=== PATIENT | male | born 1980 | race Caucasian/White ===

== ENCOUNTER 2023-10-26 18:59 | Emergency (ER) | payer OTHER, SELFPAY ==
[2023-10-26] VITALS (7 sets, daily range): BP systolic 153–180; BP diastolic 84–104; PULSE 80–100; RESP 14–24; TEMP 36.3–36.4; O2SAT 94–98; BMI 29.7; BMI 27.3
--- NOTE | 2023-10-26 19:04 | CT_ITS ---
We are attempting to reach an attending provider to discuss findings. An addendum with communication details will be sent when the communication is complete. STUDY: CTA HEAD AND NECK WITH CONTRAST REASON FOR EXAM: Male, 43 years old. Neuro deficit, acute, stroke suspected RADIATION DOSAGE (If Supplied By Facility): CTDIvol = ( ) mGy, DLP = ( 718.38 ) mGycm TECHNIQUE: CT angiography was performed with a multi-detector CT scanner. Data acquisition was obtained from the skull base through the vertex following intravenous administration of IV 100mL [id number]-370. MIP images were reconstructed from the axial data set. Post-processing of the angiographic images was performed, with multiplanar reformation and 3D reconstruction. Individualized dose optimization techniques were used for this CT. COMPARISON: No relevant priors. FINDINGS: Normal bilateral petrous carotid arteries. Normal right cavernous carotid artery with a normal supraclinoid bifurcation. Normal left cavernous carotid artery with a normal supraclinoid bifurcation. Normal right A1 segments of the anterior cerebral artery. Normal left A1 segments of the anterior cerebral artery. Normal intact anterior communicating artery (ACOM). Normal bilateral A2 segments of the anterior cerebral arteries. Normal right M1 and M2 segments of the middle cerebral arteries, with a normal M1 bifurcation. Normal left M1 and M2 segments of the middle cerebral arteries, with a normal M1 bifurcation. Posterior communicating arteries are not visualized consistent with normal variant Normal bilateral vertebral arteries. Normal basilar artery with a normal basilar bifurcation. The visualized bilateral superior cerebellar (SCA) arteries are normal. Normal bilateral P1, P2 and visualized P3 segments of the posterior cerebral arteries. There is no demonstrated aneurysm of the [place]. There is no demonstrated abnormality of the visualized brain. AORTIC ARCH: Normal visualized aortic arch. Normal origins of the brachiocephalic, left common carotid, and left subclavian arteries. RIGHT CAROTID ARTERIES: Normal right common carotid artery (CCA). Normal right common carotid bulb. Normal origin of the right internal carotid (ICA) artery without a hemodynamically significant stenosis. Normal visualized cervical portion of the right internal carotid artery. Normal origin of the right external carotid artery (ECA). LEFT CAROTID ARTERIES: Normal left common carotid artery (CCA). Normal left common carotid bulb. Normal origin of the left internal carotid (ICA) artery without a hemodynamically significant stenosis. Normal visualized cervical portion of the left internal carotid artery. Normal origin of the left external carotid artery (ECA). VERTEBRAL ARTERIES: Normal bilateral vertebral arteries. CT/STROKE CTA Head AND Neck W/Con IMPRESSION: Normal CTA Head and neck with contrast. Electronically Signed: Mat Ramon MD at 19:36 EST ,
--- NOTE | 2023-10-26 19:04 | EKG12_ITS ---
Test Reason : STROKE Blood Pressure : / mmHG Vent. Rate : 091 BPM Atrial Rate : 091 BPM P-R Int : 156 ms QRS Dur : 072 ms QT Int : 354 ms P-R-T Axes : 034 -19 -15 degrees QTc Int : 435 ms Normal sinus rhythm Nonspecific T wave abnormality Abnormal ECG Confirmed by VIRGINIA CARDENAS, CHRISTINE ([id number]), city editor REBEKA TAYLOR ([id number]) on 11/01/2023 1:40:09 P M Referred By: ROSELYN Confirmed By:JOJO COLEMAN MD
--- NOTE | 2023-10-26 19:04 | CT_ITS ---
INDICATION: Neuro deficit, acute, stroke suspected EXAMINATION: CT BRAIN - CT Head Stroke Protocol W/O Contrast Injection TECHNIQUE: Multiple axial images were obtained of the head without intravenous contrast. A radiation dose optimization technique was used for this scan. IV Contrast dosage and agent: None. RADIATION DOSAGE (If Supplied By Facility): CTDIvol = ( ) mGy, DLP = ( ) mGycm COMPARISON: FINDINGS: BRAIN PARENCHYMA: No intra- or extra-axial hemorrhage. No evidence of acute infarct. No intracranial mass or mass effect. There is preservation of the [place]/white matter interface. Posterior fossa structures are unremarkable. CSF SPACES: Appropriate for age. No hydrocephalus. Basal cisterns are patent. CALVARIUM, SKULL BASE, PARANASAL SINUSES AND MASTOID AIR CELLS: Mucosal thickening of the sphenoid sinuses consistent with sphenoid sinusitis. No discrete lytic or blastic abnormalities. ORBITS: Both globes, extraocular muscles, optic nerves and retrobulbar fat appear unremarkable. ASPECTS Score for Acute Strokes: 10 CT/STROKE Brain/Head without Cont IMPRESSION: Negative Brain CT without contrast. N.B. : The above Results were Read Back by Ronen Owen MD to Fly Carter and understanding confirmed on 10/26/2023 19:17:05 (ET). Electronically Signed: Ronen Owen MD at 19:18 EST ,
--- NOTE | 2023-10-26 19:05 | ED.VIS.STROK ---
HPI History of Present Illness Chief Complaint: Stroke Alert Informant: EMS Narrative Narrative: Patient was initially seen wrapped up with blankets and straps in a EMS cot in the hallway. He evidently has onset of neurologic symptoms in the last 30 minutes to an hour. Weakness on the right side. History of high blood pressure but not on any medicines currently. Patient is not really talking and evidently this has been one of the issues he has had. I am waiting to get more family in to get the history as well as to get a complete evaluation when I can get him unwrapped and in a room. He is breathing well at this time, does not need intubation, and we will initiate workup. We met the patient when he came back from CT. I also talked with his . They were sitting down to have dinner. Everything was normal. The patient evidently has a habit of cracking his neck. He will grab the top of his head with 1 hand in the jaw with the other and crank his neck in a rotational type form. He did this. He stated he just does not feel right. He wanted an Excedrin. But it sounds like he was not having any headache. But he progressed to getting weakness on the right side. The said that his speech was slurred. He was stating the right words and if he worked very hard he could get them out. But they were still slurred. He had dysarthria but not expressive aphasia. [facility] Medical History (Updated 10/26/23 @ 20:[address] Fly Carter MD) Hypertension Allergy/AdvReac Type Severity Reaction Status Date / Time No Known Allergies Allergy Verified 10/26/23 19:31 Social History Smoking Status: Light Smoker (<10/day) ROS ROS ED ROS Narrative Review of systems is severely limited as the patient really is not verbal at this time. He understands instructions quite clearly but cannot speak. EXAM Physical Exam Narrative Exam Narrative: General: Patient is awake. He is alert. He is responsive. He follows simple directions to the best of his ability. HEENT: There is right facial droop. No sign of trauma. Eyes: Pupils are reactive and equal. But he can look midpoint to right he cannot deviate either eye looking to the left. Visual ashley are a little bit difficult to assess even with confrontation. Neck I do not hear a bruit. Lungs are clear bilaterally. Saturations are normal. There is no indication of difficulty breathing. Heart is regular. Does not sound to be atrial fibrillation. I am not hearing a murmur. I do not hear muffled tones. Pulses x 4 are normal. Abdomen is soft and nontender. Extremities show no trauma. Patient has right facial droop, and deviation of eyes central and right, is essentially aphasic at this time. But no receptive aphasia. He has notable weakness right arm and leg. He can lift them off the bed but it is quite difficult and they have a lot of motion. He appears to have some sensory Milka crease on this side also. NIH is 13 but this waxes and wanes and varies considerably. Const Vital Signs: 10/26/23 19:02 10/26/23 19:26 10/26/23 19:30 Temperature 97.4 F L Temperature Source Temporal Pulse Rate 96 96 Respiratory Rate 15 24 H Blood Pressure 159/84 H 156/104 H Blood Pressure Mean 109 121 Blood Pressure Source Blood Pressure Position Blood Pressure Location Pulse Ox 97 94 Oxygen Delivery Method Room Air Room Air Room Air 10/26/23 19:43 10/26/23 19:47 10/26/23 19:50 Temperature 97.6 F L 97.6 F L Temperature Source Temporal Temporal Pulse Rate 100 Respiratory Rate 14 Blood Pressure 153/97 H 153/97 H Blood Pressure Mean 115 Blood Pressure Source Monitor Blood Pressure Position Semi-Fowlers Blood Pressure Location Left Arm Pulse Ox 96 Oxygen Delivery Method Room Air 10/26/23 20:00 10/26/23 20:15 Temperature Temperature Source Pulse Rate 80 85 Respiratory Rate 15 16 Blood Pressure 180/92 H 169/100 H Blood Pressure Mean 121 123 Blood Pressure Source Monitor Monitor Blood Pressure Position Supine Supine Blood Pressure Location Left Arm Left Arm Pulse Ox 94 98 Oxygen Delivery Method Room Air Room Air MDM MDM MDM Narrative Medical decision making narrative: My independent interpretation of his CT showed no sign of bleeding. I did discuss this case directly with the radiologist who also agreed no acute process. I discussed the CT reading angiogram of head and neck and there is no sign of significant process. I also discussed this unique history and there is no indication of dissection. Patient CBC is overall normal including platelets. Patient's electrolytes show mildly low potassium but this is not the cause of his symptoms. Glucose is minimally up. Patient's troponin is negative. Patient's PT and PTT show no marked abnormalities. The stroke neurologist saw this patient by Zoom. When I went in the room they had already hung up. They recommended TNK. But we were not sure if they had gotten a report or seeing the angiogram yet. We then immediately called the neurologist. I talked to the radiologist about the CT angio at 1940. I talked to the neurologist at 194. With that now being known is being a negative CTA, the neurologist had also looked at these images, we have ordered the TNK. I discussed the unique timing of this and reasons for it with the patient and his also. With this patient's young age, waxing and waning symptoms, unique presentation and potential high risk we will fly him down to [facility]. That is their plan to receive the patient down there. Lab Data Attestation: I reviewed the patient's lab results. Labs: Laboratory Results - last 24 hr 10/26/23 19:05 WBC 10.7 RBC 5.14 Hgb 15.5 Hct 45.5 MCV 88.5 MCH 30.2 MCHC 34.1 RDW Std Deviation 38.9 RDW Coeff of Gunjan 12.1 Plt Count 377 MPV 9.5 Immature Gran % (Auto) 0.600 Neut % (Auto) 45.0 L Lymph % (Auto) 45.0 H [place] % (Auto) 7.3 Eos % (Auto) 1.5 Baso % (Auto) 0.6 Absolute Neuts (auto) 4.8 Absolute Lymphs (auto) 4.82 H Nucleated RBC % 0 PT 12.8 INR 1.0 APTT 23.8 L Sodium 141 Potassium 3.1 L Chloride 106 Carbon Dioxide 31.0 Anion Gap 4 L BUN 19 H Creatinine 1.16 Estim Creat Clear Calc 84.78 Est GFR (MDRD) Af Amer 88 Est GFR (MDRD) Non-Af 73 BUN/Creatinine Ratio 16.4 Glucose 118 H Calcium 9.1 Troponin I High Sens 4 Radiography Diagnostic Testing: Clinical Impression(s) from Imaging Studies Brain CT 10/26/23 19:04 IMPRESSION: Negative Brain CT without contrast. N.B. : The above Results were Read Back by Ronen Owen MD to Fly Carter and understanding confirmed on 10/26/2023 19:17:05 (ET). Electronically Signed: Ronen Owen MD at 19:18 EST , ADDENDUM: 10/26/231924 IMPRESSION: Negative Brain CT without contrast. N.B. : The above Results were Read Back by Ronen Owen MD to Fly Carter and understanding confirmed on 10/26/2023 19:17:05 (ET). Electronically Signed: Ronen Owen MD at 19:18 EST , Head/Neck CTA 10/26/23 19:04 IMPRESSION: Normal CTA Head and neck with contrast. Electronically Signed: Mat Ramon MD at 19:36 EST , ADDENDUM: 10/26/231950 IMPRESSION: Normal CTA Head and neck with contrast. N.B. : The above Results were Read Back by Mat Ramon MD to Fly Carter MD, and understanding confirmed on 10/26/2023 19:44:58 (ET). Electronically Signed: Mat Ramon MD at 19:36 EST , EKG Initial EKG: Comments: My independent interpretation of the patient's EKG shows normal sinus rhythm with a rate of 91. No ectopy. Nonspecific change but no sign of acute infarct or ischemia. HI interval, QRS duration and QTc are normal. Critical Care Time Critical Care Time: Yes Critical care time (excluding procedures): 30-74 minutes, Discussing w/Patient &/or Family/[employer], Discussing w/Consultants, Arranging Admission or Transfer, Performing Direct Patient Care at Bedside and - (55 minutes, multiple conversations, multiple rechecks, management.) Discharge Plan Triage Chief Complaint: Stroke Alert ED Provider: Fly Carter Dx/Rx/DC Orders Clinical Impression: Acute CVA (cerebrovascular accident), History of hypertension, Acute hypokalemia Primary Care Provider: Care Physician,No Primary Referrals: NOT,DEFINED [Non-Staff] - Disposition Disposition: Acute Care Hospital Discharge Location: [facility] Discharge Date/Time: 10/26/23 20:28
[2023-10-26 19:11] LABS: Absolute Lymphocyte Count 4.82 X10^3/uL (0.83-4.51); Absolute Neutrophil Count 4.8 X10^3/uL (2.0-7.7); Basophil# 0.06 X10^3/uL; Basophil% 0.6 % (0-1); Eosinophil# 0.16 X10^3/uL; Eosinophils% 1.5 % (0-5); Hematocrit 45.5 % (40-54); Hemoglobin 15.5 g/dL (13.0-16.5); Lymphocyte # 4.82 X10^3/ul (0.83-4.51); Mean Corp Hgb Conc 34.1 g/dL (32-36); Mean Corpuscular Hgb 30.2 pg (27.0-32.0); Mean Corpuscular Volume 88.5 fL (80-94); Mean Platelet Vol. 9.5 fl (6.2-12.0); Monocyte# 0.78 X10^3/uL; Monocyte% 7.3 % (0-10); NRBC Flagged by Analyzer 0 % (0-5); Neutrophil # 4.82 X10^3/uL (2.7-7.7); Platelet Count 377 K/mm3 (150-450); RBC Distribution Width CV 12.1 % (11.6-14.6); RBC Distribution Width SD 38.9 fl (35.1-43.9); Red Blood Count 5.14 M/mm3 (4.6-6.2); White Blood Count 10.7 K/mm3 (4.4-11.0)
[2023-10-26 19:21] LABS: Prothrombin Time (Protime)PT. 12.8 SECONDS (11.7-14.9)
[2023-10-26 19:25] LABS: Partial Thromboplast Time 23.8 Seconds (24.1-36.2)
[2023-10-26 19:30] LABS: Anion Gap 4 (5-15); BUN 19 mg/dL (7-18); BUN/Creat Ratio 16.4 RATIO (10-20); Calcium,Total 9.1 mg/dL (8.5-10.1); Chloride 106 mmol/L (98-107); Creatinine, Serum 1.16 mg/dL (0.70-1.30); EST Glomerular Filtration Rate 73 mL/min (>60); Est Glom Filt Rate - Afr Amer 88 mL/min (>60); Estimated Creatinine Clearance 84.78 ml/min; Glucose 118 mg/dL (74-106); Potassium 3.1 mmol/L (3.5-5.1); Sodium Level 141 mmol/L (136-145); Troponin-I HS 4 pg/mL (3.0-78.0)
[2023-10-26] MEDS: Ondansetron 4 MG/2 ML Vial IV (19:46)
[2023-10-26] MEDS: 0.9% Saline Lock 10 ML Syringe IV ×2 (19:50→19:51)
[2023-10-26] MEDS: 0.9% Normal Saline (1000mL) 1,000 ML 100 ML IV (19:54)
--- NOTE | 2023-10-26 20:03 | ED.RN ---
TNK held until CTA read by [facility] neurology to rule out dissection. Pt continues with symptoms waxing and waning, aware.
--- NOTE | 2023-10-26 20:21 | CM.ED ---
Social Work SW introduced self and role to patient and . Pt is going to [facility] via life flight. SW needs denied at this time. Support provided. 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
== END 2023-10-26 20:28 | disposition short-term general hospital (02) ==
PROVIDERS: Emergency Provider Emergency Medicine; Visit Provider Emergency Medicine
DX: I63.9 Cerebral infarction, unspecified (principal); G81.91 Hemiplegia, unspecified affecting right dominant side; R47.81 Slurred speech; R47.1 Dysarthria and anarthria; R29.810 Facial weakness; R29.713 NIHSS score 13; I10 Essential (primary) hypertension; E87.6 Hypokalemia; F17.200 Nicotine dependence, unspecified, uncomplicated
CPT/HCPCS: 70450; 70496; 70498; 80048; 84484; 85025; 85610; 85730; 93005; 96361; 96374; 96375; 99285; J3101; J7030; Q9967; A4216; J2405

== ENCOUNTER 2023-11-13 14:40 | Inpatient (IN) | payer OTHER, SELFPAY ==
--- OUTSIDE RECORDS SUMMARY | 2023-11-13 14:55 | XMS RPT_ITS | CCD ---
Author Name Unknown Address [address] [place] [address] Organization [facility] Care Team Providers Care Network Project Manager Name Role Phone WES MORLEY Admitting Unavailable CONSULT, SURGERY - NEURO Consulting Unavail able MICHAEL DEMPSEY Referring Unavailable TAMARA EVANS Attending Unavailable Problems Problem Classification Problem Date Documented Da te Episodic/Chronic Acute cerebrovascular disease (6 sources) Cerebral infarction, unspecified; Translations: [Cerebral infarction due to unspecified occlusion or stenosis of left posterior cerebral artery] Onset: 10-26-2023 Chronic Aortic; peripheral; 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; 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-2023 Chronic Disorders of lipid metabolism (2 sources) Hyperlipidemia, unspecified; Translations: [Hyperlipidemia, unspecified] Onset: 10-26-2023 Chronic Malaise and fatigue (2 sources) Weakness; Translations: [Weakness] Onset: 10-26-2023 Episodic Other nervous system disorders (2 sources) Cerebral edema; Translations: [Cerebral edema] Onset: 10-26-2023 Chronic Respiratory failure; insufficiency; arrest (adult) (2 sources) Acute respiratory failure, unspecified whether with hypoxia or hypercapnia; Translations: [Acute respiratory failure, unspecified whether with hypoxia or hypercapnia] Onset: 10-26-2023 Episodic Results Test Name Value Interpretation Reference Range Facil ity Encounters Encounter Date Encounter Type Care Provider Facility Start: 10-26-2023 Evaluation and manag ement of inpatient WES MORLEY Facility:[facility] Procedures Date Procedure Procedure Detail Performing Clinician Start: 10-27-2023 Antibody screen WES RILEY Payers Date Payer Category Payer Unknown [id number] 1980 Unknown [id number] Summary Purpose Family History No Family History Records Found Advance Directives No Advanced Directives Records Found Additional Source Comments (unrecognized sect ion and content) No Status Records Found INFORMATION SOURCE (unrecogn ized section and content) FOR RECORDS PERTAINING TO PATIENTS WHO ARE OR HAVE BEEN ENROLLED IN A CHEMICAL DEPENDENCY/SUBSTANCEABUSE PROGRAM, SOME INFORMATION MAY BE OMITTED. This clinical summary was aggregated from multiple sources. Caution should be exercised in using it in the provision of clinical care. This summary normalizes information from multiple sources, and as a consequence, information in this document may materially change the coding, format and clinical context of patient data. In addition, data may be omitted in some cases. CLINICAL DECISIONS SHOULD BE BASED ON THE PRIMARY CLINICAL RECORDS. [facility]. provides no warranty or guarantee of the accuracy or completeness of information in this document.
[2023-11-13 15:04] VITALS: BP 104/65; PULSE 78; RESP 20; TEMP 36.6; O2SAT 94
[2023-11-13] MEDS: ChlorproMAZINE 25 MG Tablet GT (16:09)
--- NOTE | 2023-11-13 16:12 | HP.PCM_ITS ---
HPI - General General Date of Admission: 11/13/23 Date of Service: 11/13/23 Chief Complaint: Post stroke Debility HPI Narrative CARLEY HENDERSON, is a 43 M with no significant PMH cracked his neck (he has a habit of this) and then started having R side weakness, R facial droop and dysarthria. He went to the ED at [facility] and at his arrival he was basically nonverbal. Stat noncontrast CT brain showed no acute process. CTA of the head and neck with contrast was normal. The ER consulted teleneurology. NIHSS score was 14 at presentation. He also had diplopia. 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 Thrombolytics were recommended and the patient received intravenous TNK. He was then transferred to [facility] for stroke workup. Following TNK the NIHSS score dropped to 3. Upon arrival at [facility] the NIHSS was 2 for right facial droop and dysarthria. Approximately 4 hours after arriving at [facility] the patient lost consciousness after returning from the restroom. He had generalized stiffness/shaking all extremities, was sonorous and responded only to sternal rub. He was given 4 mg of Ativan however continued to have seizure- like activity for 15 minutes is despite medication. A repeat CT head had a lot of artifact and he was intubated to protect the airway and loaded with Keppra and taken back for another CT head which was negative for bleeding. He was started on propofol for sedation. Approximately 2 hours later he had another seizure lasting 5 minutes and was treated with 4 mg of Ativan and an increase in propofol to 20 mcg/kg/min. An EEG was done later in the day on 10/27/2023 and there were no epileptiform discharges but, there was generalized slowing. Neurology felt the movements were not seizures but represented extensor posturing/triple flexing rather than true seizure. He was extubated on 10/29/23. That night he had increased secretions. CXR showed increased atelectasis in the bases and a new infiltrate in the RUL. He was seen by infectious disease and started on vancomycin and Zosyn initially and then transition to ceftriaxone to complete a 5-day course. He had respiratory failure with hypoxemia and was intubated for the second time. He was extubated on 11/06/23. He developed hiccups on 11/07 and was started on Gabapentin and then transitioned to Thorazine and then to Compazine at [facility]. While at [facility] he was seen by PT/OT/ST and acute inpt rehab was recommended at [place]. He was transferred to the acute inpt rehab unit at [facility] on 11/13/23 for 3 hours of therapy daily to restore function/independence at or near his level prior to the stroke. Additional findings while at [facility]: He is non-verbal but, he understands speech and is able to follow commands. He has no numbness and can hear well. He has diplopia. He is moving all his extremities. EOMI. TC 258, LDL 192, HDL 40 and TRIG 93 Hemoglobin A1c was 5.2. Hyperglycemia was due to acute CVA. Transthoracic echocardiogram showed 65 to 70% EF with stage I diastolic dysfunction. There was no evidence of a right to left shunt with a bubble study. He underwent a diagnostic cerebral angiogram on 11/03/2023 and it showed no flow-limiting left vertebral dissection at V3. He had to remain intubated after the DCA due to respiratory failure. PEG tube was inserted on 11/05/2023. MRI showed multiple infarcts throughout the posterior circulation involving the posterior inferior cerebellar artery territory, bilateral AICA/SCA pontine perforators, artery of [place] and bilateral posterior cerebral artery insults. There was localized edema without significant mass effect or fourth ventricular compromise. He had no hemorrhagic transformation. [facility], [facility] Medical History Aspiration pneumonia GERD (gastroesophageal reflux disease) Hypertension Marijuana use Stroke/cerebrovascular accident Home Medications aspirin 81 mg chewable tablet (Aspirin Childrens) 1 tab feeding tube DAILY heart 11/13/23 [History Last Taken Unknown] atorvastatin 80 mg tablet 80 mg feeding tube QHS cholesterol 11/13/23 [History Last Taken Unknown] chlorpromazine 10 mg tablet 5 mg feeding tube Q6H hiccups 11/13/23 [History Last Taken 11/13/23 08:00] Allergy/AdvReac Type Severity Reaction Status Date / Time No Known Allergies Allergy Verified 10/26/23 19:31 Surgical History History of repair of ACL Social History (Updated 11/13/23 @ 17:[address] 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 He is also very drowsy from Thorazine given for singultus and he keeps falling asleep. Review of Systems ROS Unobtainable: due to mental status Vital Signs Vital Signs Vital Signs: 11/13/23 15:04 Temperature 97.9 F Temperature Source Temporal Pulse Rate 78 Respiratory Rate 20 H Blood Pressure 104/65 Blood Pressure Mean 78 Blood Pressure Source Monitor Blood Pressure Position Semi-Fowlers Blood Pressure Location Left Arm Pulse Ox 94 Oxygen Delivery Method Nasal Cannula Oxygen Flow Rate (L/min) 4 Indicators for Scoring Admitted with or Primary Diagnosis of CVA/Stroke: Yes Hx of CVA/Stroke: Yes Modified [place] Score MRS Score at time of Evaluation: 5-Severe disability NIHSS NIHSS 1a. Level of Consciousness: Not alert; (very drowsy and not able to stay awake without stimulation) 1b. LOC Questions: Answers neither question correctly. 1c. LOC Commands: Performs both tasks correctly. 2. Best Gaze: Normal 3. Visual: No visual loss 4. Facial Palsy: Partial paralysis (total or near-total paralysis of lower face) 5a. Left Arm: No drift; arm holds 90 (or 45) degrees for full 10 seconds 5b. Right Arm: No drift; arm holds 90 (or 45) degrees for full 10 seconds 6a. Left Leg: No drift; leg holds 30-degree position for full 5 seconds 6b. Right Leg: No drift; leg holds 30-degree position for full 5 seconds 7. Limb Ataxia: Absent 8. Sensory: Normal; no sensory loss 9. Best Language: Mute, global aphasia; 10. Dysarthria: UN=Intubated or other physical barrier, explain: (severe aphasia - non-verbal at the present time) 11. Extinction and Inattention: No abnormality Total: 8 Stroke Questions Stroke Team Activated: No Physical Exam Const Constitutional Narrative: He is drowsy......likely related to not only the CVA but, he is getting Thorazin e 4 times a day for singultus. His tells me that he has GERD and he takes antacids and PPI's OTC. He is making good eye contact with me. Not able to clear his secretions but, he is able to use the suction catheter by himself. No hiccups at the present time. General Appearance: cooperative and well developed HEENT normocephalic, head/scalp atraumatic and moist oral mucous membranes HEENT Narrative: Thrush is present. Eyes PERRL and EOMs intact bilaterally Neck No nuchal rigidity, supple and No nodes General: trachea midline Resp Resp Narrative: CTA anterior and lateral. Effort and Inspection: Negative for tachypneic, respiratory distress or uses accessory muscles Auscultation: Negative for rales, rhonchi or wheezes Cardio regular rate, regular rhythm, S1 normal heart sound, S2 normal heart sound, no murmurs, no rub and no gallops GI normal to inspection, nondistended, normoactive bowel sounds and soft to palpation GI Narrative: No guarding with palpation. PEG tube is present. there is no erythema around the tube and no purulent DC. He has a condom cath. No lesions or erythema of the glans penis. Inspection: Negative for abdominal distention Extremity Extremity Narrative: no pain with dorsiflexion of the calves or with compression of the gastrocnemius M. General Extremity: Negative for clubbing, cyanosis or edema Skin no rashes or lesions noted, no jaundice, no petechiae and no mottling Neuro Neuro Narrative: Non-verbal, Left facial droop. Tongue protrudes on the midline. Moving all extremities and has no drift. No ataxia. PERRLA. EOMI. No nystagmus. He has intact sensation. Able to follow commands. Generalized weakness of the extremities. Having a hard time staying awake. 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 (3) Posterior circulation stroke: (4) Diplopia: (5) Aphasia complicating stroke: (6) Dysphagia: QUALIFIERS: Dysphagia type: oropharyngeal phase Qualified Code(s): R13.12 - Dysphagia, oropharyngeal phase (7) Presence of externally removable percutaneous endoscopic gastrostomy (PEG) tube: (8) Intractable singultus: (9) Facial droop due to acute stroke: (10) Aspiration pneumonia: QUALIFIERS: Aspiration pneumonia type: due to gastric secretions Laterality: right Lung location: upper lobe of lung Qualified Code(s): J69.0 - Pneumonitis due to inhalation of food and vomit (11) Urinary incontinence as sequela of cerebrovascular accident (CVA): (12) GERD (gastroesophageal reflux disease): QUALIFIERS: Esophagitis presence: esophagitis presence not specified Qualified Code(s): K21.9 - Gastro-esophageal reflux disease without esophagitis (13) Hyperlipidemia: QUALIFIERS: Hyperlipidemia type: pure hypercholesterolemia Qualified Code(s): E78.00 - Pure hypercholesterolemia, unspecified (14) Hypertension: QUALIFIERS: Hypertension type: primary hypertension Qualified Code(s): I10 - Essential (primary) hypertension PLAN: this is new diagnosis. Not on an antihypertensive prior to the stroke. (15) Grade I diastolic dysfunction: (16) Anemia: QUALIFIERS: Anemia type: other cause PLAN: Due to blood loss from lab draws and procedures while at [facility] (17) Thrush, oral: PLAN: Plan PLAN PT for gait stability OT for ADL's ST for evaluation Analgesics as needed Bowel protocol Fall precautions Assess for Anxiety/Depression GI prophylaxis with Pepcid 15 mg per PEG tube twice daily DVT prophylaxis with Lovenox 40 mg subcu daily and TIANA bah Follow up with neurovascular department at [facility], PCP, neurology following DC from [facility] Re[facility] AM lab including CMP, CBC, Mag and Phos ordered Would like to get him off chlorpromazine because I think this is likely contributing to his decreased level of alertness. I suspect some of the decreased level of consciousness is due to the stroke in the posterior circula tion. Will start Reglan 5 mg per G-tube every 8 hours and Prevacid 15 mg twice daily to treat hiccups. Wean the chlorpromazine. Aggressive pulmonary toilet Consult the dietitian to transition to bolus feedings for ease of administration while the patient is receiving therapy. Continue aspirin 81 mg daily. Continue atorvastatin 80 mg per PEG tube nightly........... recheck lipid panel in 4 to 6 weeks. Will also check a liver panel at that time. Start Diflucan 100 mg per G-tube daily for 1 week to treat thrush. Keep the head of the bed at at least 30 degrees at all times to prevent aspiration discussed the plan of treatment with his Beverly. They recently moved to [place] and he has no primary care physician. Will discuss with Carley and his when we get closer to discharge. Charges/Coding Visit Charges Inpatient E&M: 58700 Init Hosp L3
[2023-11-13] MEDS: Vital AF 1.2 Cal Liq 1,500 ML 80 ML GT (16:34)
[2023-11-13 17:42] VITALS: O2SAT 94
--- NOTE | 2023-11-13 19:00 | NURSING ---
here when patient came. Aware of team and rehab routine. Patient is nonverbal but able to follow commands, drowsy in appearance. Call evans in place. Peg tube verified placement via stethoscope, getting continuous tube feed at this time.
[2023-11-13] MEDS: Senna/Docusate Sodium 1 Tablet 2 TABLET GT (22:53)
[2023-11-13] MEDS: Atorvastatin Calcium 80 MG Tablet GT (22:54)
--- NOTE | 2023-11-13 23:00 | NURSING ---
Residual amount 100 ML when checked. Pt was coughing persistently. RN was notified and instructed for this nurse to stop the continuous tube feed.
[2023-11-13] MEDS: Metoclopramide 10 MG/10 ML UDC 5 MG GT (23:01)
[2023-11-13] MEDS: NYSTATIN 500,000 UNIT/5 ML UDC 500000 UNIT PO (23:02)
[2023-11-13] MEDS: Lansoprazole 15 MG Capsule.DR GT (23:02)
[2023-11-13 23:33] LABS: Bacteria 0 SEEN /hpf (None Seen); Mucous, Urine 0 SEEN /hpf (<or=2+)
[2023-11-13 23:37] LABS: Color, Urine Yellow (Yellow); Glucose, Dipstick Normal (Normal); Ketone-Dipstick Negative (Negative); Leukocyte Esterase-Dipstick 25 /ul (Negative); Nitrite-Dipstick Negative (Negative); Occult Blood-Urine 50 /ul (Negative); Protein-Dipstick 15 mg/dl (Negative); Urine Bilirubin Dipstick Negative (Negative); Urine Clarity Clear (Clear); Urine Urobilinogen 4 mg/dl (Normal); Urine pH 6.5 (5.0 - 8.0)
[2023-11-13 23:47] LABS: Red Blood Cells-Urine 5-10 SEEN /hpf (0-5); Squamous Epithelial Cells - UA 0-5 SEEN /hpf (0-5); White Blood Cells 0-5 SEEN /hpf (0-5)
[2023-11-14] MEDS: ChlorproMAZINE 25 MG Tablet GT ×5 (00:54→23:34)
--- NOTE | 2023-11-14 02:51 | NURSING ---
Residual 20 ML. Tube feeding resumed.
[2023-11-14 05:17] LABS: Hematocrit 35.3 % (40-54); Hemoglobin 11.1 g/dL (13.0-16.5); Mean Corp Hgb Conc 31.4 g/dL (32-36); Mean Corpuscular Hgb 29.9 pg (27.0-32.0); Mean Corpuscular Volume 95.1 fL (80-94); Mean Platelet Vol. 9.6 fl (6.2-12.0); Platelet Count 426 K/mm3 (150-450); RBC Distribution Width CV 11.8 % (11.6-14.6); RBC Distribution Width SD 40.7 fl (35.1-43.9); Red Blood Count 3.71 M/mm3 (4.6-6.2); White Blood Count 9.1 K/mm3 (4.4-11.0)
[2023-11-14] MEDS: Metoclopramide 10 MG/10 ML UDC 5 MG GT ×3 (05:19→22:32)
[2023-11-14] MEDS: Enoxaparin 40 MG/0.4 ML Syringe SC (05:20)
[2023-11-14 05:38] LABS: ALB/GLOB Ratio 0.7 RATIO (0.9-2.4); AST(SGOT) 22 U/L (15-37); Alanine Aminotransfer ALT/SGPT 18 U/L (16-61); Albumin, Serum 2.6 g/dL (3.2-5.0); Alkaline Phosphatase 68 U/L (45-117); Anion Gap 4 (5-15); BUN 30 mg/dL (7-18); BUN/Creat Ratio 27.5 RATIO (10-20); Calcium,Total 8.5 mg/dL (8.5-10.1); Chloride 108 mmol/L (98-107); Creatinine, Serum 1.09 mg/dL (0.70-1.30); EST Glomerular Filtration Rate 78 mL/min (>60); Est Glom Filt Rate - Afr Amer 95 mL/min (>60); Globulin 3.9 g/dL (2.2-4.2); Glucose 124 mg/dL (74-106); Potassium 4.1 mmol/L (3.5-5.1); Protein, Total 6.5 g/dL (6.4-8.2); Sodium Level 143 mmol/L (136-145)
[2023-11-14 07:40] VITALS: BP 114/71; PULSE 75; RESP 18; TEMP 37.1; O2SAT 92
[2023-11-14 08:12] VITALS: O2SAT 95
[2023-11-14 09:46] VITALS: BMI 24.0
[2023-11-14] MEDS: Aspirin 81 MG TAB.CHEW GT (09:51)
[2023-11-14] MEDS: Senna/Docusate Sodium 1 Tablet 2 TABLET GT ×2 (09:51→22:32)
[2023-11-14] MEDS: Lansoprazole 15 MG Capsule.DR GT ×2 (09:51→22:32)
[2023-11-14] MEDS: NYSTATIN 500,000 UNIT/5 ML UDC 500000 UNIT PO ×4 (09:51→22:32)
[2023-11-14] MEDS: Influenza Virus Vac Quad 23-24 60 MCG/0.5 ML SYRINGE IM (09:52)
[2023-11-14] MEDS: Jevity 1.5 1,000 ML 65 ML GT (11:29)
[2023-11-14 19:46] VITALS: BP 102/63; PULSE 84; RESP 18; TEMP 37; O2SAT 97
[2023-11-14] MEDS: Atorvastatin Calcium 80 MG Tablet GT (22:32)
[2023-11-15] VITALS (8 sets, daily range): BP systolic 108–125; BP diastolic 64–69; PULSE 79–81; RESP 16; TEMP 36–36.5; O2SAT 90–97
[2023-11-15] MEDS: Jevity 1.5 1,000 ML 65 ML GT (03:23)
[2023-11-15] MEDS: Enoxaparin 40 MG/0.4 ML Syringe SC (05:00)
[2023-11-15] MEDS: Metoclopramide 10 MG/10 ML UDC 5 MG GT ×3 (05:02→20:38)
[2023-11-15] MEDS: ChlorproMAZINE 25 MG Tablet GT (05:04)
--- NOTE | 2023-11-15 07:30 | CPS ---
Found pt on RA, NC became disconnected. Pt sat was 92%. placed pt back on NC at 2L. RN notified.
[2023-11-15] MEDS: Aspirin 81 MG TAB.CHEW GT (08:10)
[2023-11-15] MEDS: NYSTATIN 500,000 UNIT/5 ML UDC 500000 UNIT PO ×4 (08:10→20:38)
[2023-11-15] MEDS: Senna/Docusate Sodium 1 Tablet 2 TABLET GT ×2 (08:10→20:38)
[2023-11-15] MEDS: Lansoprazole 15 MG Capsule.DR GT ×2 (08:10→20:38)
[2023-11-15] MEDS: Acetaminophen 650 MG/20 ML UDC GT ×2 (08:10→15:55)
[2023-11-15] MEDS: Jevity 1.5. 1,000 ML Bottle 310 ML GT ×3 (13:13→20:36)
--- NOTE | 2023-11-15 15:20 | PN_ITS ---
Subjective Subjective Afebrile VSS Maintaining appropriate oxygen saturation on on a 4 to 5 L nasal cannula and we have begun to wean the oxygen supplementation today. Oral intake - NPO due to dysphagia. Discussed with nursing - no problems that need addressed. Nursing reports no hiccups the past 2 days. He is still very drowsy. Reviewed the PT/OT/ST notes Medication list reviewed. Pt is not able to effectively cough on his own. We are using the percussion vest but, the RT suggests assist cough also. Unable to wake up for me to talk with him. He is having long periods of apnea. Could not do a ROS with him due to mental status. He has had no hiccups since arriving at rehab. He was started on Reglan and Prevacid for long history of reflux/heartburn. Objective Data Objective Data Vital Signs: Vital Signs Temp Pulse Resp BP Pulse Ox O2 Del Method O2 Flow Rate 97.7 F L 79 16 108/64 97 Nasal Cannula 2 11/15/23 08:00 11/15/23 08:00 11/15/23 08:00 11/15/23 08:00 11/15/23 08:00 11/15/23 10:00 11/15/23 10:52 Oxygen Flow Rate (L/min) 2 Oxygen Delivery Method Nasal Cannula Weight: 181 lb 2 oz Body Mass Index (BMI) 24.0 Intake & Output: Intake and Output for Last 24 Hours 11/13/23 11/14/23 11/15/23 23:59 23:59 23:59 Intake Total 688 / 738 2781 / 2781 2615.92 / 2615.92 Output Total 675 / 675 400 / 400 Balance 688 / 738 2106 / 2106 2215.92 / 2215.92 Lab / Micro Data 11/14/23 05:05 11/14/23 05:05 Physical Exam Const Constitutional Narrative: Very drowsy. I could not arouse him to talk with him today. Thorazine has been discontinued. Resp Resp Narrative: Scattered rhonchi. No crackles. No wheezes. Not able to have an effective cough. Cardio regular rate, regular rhythm, no murmurs, no rub and no gallops Cardio Narrative: No ectopy GI normal to inspection, nondistended, normoactive bowel sounds and soft to palpation GI Narrative: No guarding with palpation. He is tolerating his tube feeds without significant residual. He was converted to bolus feedings today. The area around the PEG tube is free of erythema. There is no foul-smelling purulent discharge but there is some tube feed that leaks around the opening. 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 (9) Facial droop due to acute stroke: (10) Aspiration pneumonia: QUALIFIERS: Aspiration pneumonia type: due to gastric secretions Laterality: right Lung location: upper lobe of lung Qualified Code(s): J69.0 - Pneumonitis due to inhalation of food and vomit PLAN: Resolved (11) Urinary incontinence as sequela of cerebrovascular accident (CVA): (12) GERD (gastroesophageal reflux disease): QUALIFIERS: Esophagitis presence: esophagitis presence not specified Qualified Code(s): K21.9 - Gastro-esophageal reflux disease without esophagitis (13) Hyperlipidemia: QUALIFIERS: Hyperlipidemia type: pure hypercholesterolemia Qualified Code(s): E78.00 - Pure hypercholesterolemia, unspecified (14) Hypertension: QUALIFIERS: Hypertension type: primary hypertension Qualified Code(s): I10 - Essential (primary) hypertension PLAN: this is new diagnosis. Not on an antihypertensive prior to the stroke. (15) Grade I diastolic dysfunction: (16) Anemia: QUALIFIERS: Anemia type: other cause PLAN: Due to blood loss from lab draws and procedures while at [facility] (17) Thrush, oral: (18) Apnea for greater than 15 seconds: PLAN: Plan 1. Continue therapy 2. Add CoughAssist to respiratory treatments. 3. Continue to wean oxygen as tolerated 4. Discontinue Thorazine but, continue Reglan and PPI. 5. I reviewed the recommendations from the dietitian for bolus feedings and will convert to bolus feedings today. 6. Overnight trending pulse ox. I suspect he may have central apnea due to e xtensive posterior stroke and may need to be on BIPAP with back up rate when sleeping. Pulse ox is good on a 2 LPM NC Charges/Coding Visit Charges Inpatient E&M: 93816 Subs Hosp L2
--- NOTE | 2023-11-15 15:20 | PCM.RU.PYE ---
Admission Information Primary Diagnosis:: Post CVA debility due to posterior circulation ischemic CVA related to dissection of the left vertebral artery Status Changes from Prescreening?: No changes Identified Actual Problem List:: Skin Intergrity, Cognitve Impr/Memory Loss, Alteration in Sleep, Alteration in Nutrition, Mobility Impaired, Self Care Deficit, BP, Hypertension and Alteration/ Air Exchange Potential Problem List:: DVT, Bleeding, Infection, UTI, Aspiration, Falls, Skin Integrity and Depression Risk of Complications DVT: TIANA Hose and - (Enoxaparin) Bleeding: Monitor Lab Values, Nursing to Teach Precautions for anti-coagulation therapy., Wound, if applicable, to be assessed every shift. and Stroke patients assessed for lethargy or change in status. Infection: Clinical Staff to Monitor for S/S of infection: and S/S of infection include fever, redness, warmth, etc. Urinary Tract Infection: Monitor for frequency, burning, discomfort, or incontinence. and Nursing will obtain urine sample for urinalysis and C&S when ordered. Aspiration: Clinical staff will monitor for coughing, drooling, congestion., Speech will evaluate swallowing and dsyphasia. and Nursing will monitor patient swallowing during meals. Falls: Patient will be evaluated for Fall Precautions and Patient will be placed on Fall Precautions as indicated per protocol. Skin Breakdown: Nursing will assess skin daily using assessment tool. and Nursing will place on Skin Breakdown Precautions as indicated. Pain: Clinical staff will assess patient's pain level per protocol., Medications will be given, if needed, and the pain level reassessed. and Other methods: Massage, distraction, decrease stimulus, etc. used PRN. Goals Goals Patient will remain: free from falls Patient will perform eating at: - (He has a PEG tube and currently is n.p.o.) Patient will perform bed mobility at: - (Max assist in order to improve independence with functional mobility) Patient will complete transfers from bed to chair at: - (Complete bedside commode transfer with max assist of 1. He will be able to complete sit to stand transfers with the least restrictive device and max assist in order to improve functional mobility and decrease fall risk.) Patient will ambulate: - (Not a goal at this time.) Patient will complete upper body dressing at: - (He will be able to participate in upper body dressing/bathing tasks with max assist rather than total assist) Patient will complete toilet transfer at: - (Transfer to bedside commode with max assist x 1 person) Patient will complete grooming at: - (Participate in grooming/hygiene tasks seated at the edge of bed with max assist) Patient will achieve: - (Not at goal at this time.) Patient will have pain level of: of 3 or less Patient's skin will: remain intact Patient will receive: adequate nutrition. Discharge Planning Pt Prognosis for Sig. Practical Improv. w/in Reasonable Time: Fair (poor to fair........I suspect he will improve somewhat but skilled nursing prognosis is in question. ) Estimated Length of stay (days): 30 Anticipated D/C Destination: [facility] Facility Was Preadmission Assessment Accurate?: Yes
[2023-11-15] MEDS: Menthol/Lanolin/Calamine/Znox 113 GM Tube 1 APPLIC TOPICAL (20:35)
[2023-11-15] MEDS: Atorvastatin Calcium 80 MG Tablet GT (20:38)
--- NOTE | 2023-11-15 21:54 | CPS ---
Pt O2 found at 82%, 3L O2 added per Dr. Jay
[2023-11-16] MEDS: Acetaminophen 650 MG/20 ML UDC GT ×2 (06:43→15:09)
[2023-11-16] MEDS: Metoclopramide 10 MG/10 ML UDC 5 MG GT ×3 (06:44→22:19)
[2023-11-16] MEDS: Enoxaparin 40 MG/0.4 ML Syringe SC (06:45)
[2023-11-16] MEDS: Menthol/Lanolin/Calamine/Znox 113 GM Tube 1 APPLIC TOPICAL ×2 (06:46→22:20)
[2023-11-16] MEDS: Jevity 1.5. 1,000 ML Bottle 310 ML GT ×5 (06:49→22:20)
[2023-11-16 07:07] VITALS: O2SAT 94
--- NOTE | 2023-11-16 07:43 | NURSING ---
Residual 0ml this am. PEG site cleansed w/ soap and water. Small amount of brown, crusted drainage noted when cleaned. One split 2x2 applied. Did not secure split gauze w/ tape. Insertion sight is pink.
--- NOTE | 2023-11-16 07:47 | NURSING ---
B/L MARICRUZ and MICHAELs applied this am.
[2023-11-16 07:50] VITALS: BP 101/58; PULSE 62; RESP 20; TEMP 37.1; O2SAT 94
[2023-11-16] MEDS: Lansoprazole 15 MG Capsule.DR GT ×2 (10:26→22:20)
[2023-11-16] MEDS: NYSTATIN 500,000 UNIT/5 ML UDC 500000 UNIT PO ×4 (10:27→22:20)
[2023-11-16] MEDS: Aspirin 81 MG TAB.CHEW GT (10:27)
[2023-11-16 12:58] VITALS: O2SAT 93
[2023-11-16 19:12] VITALS: O2SAT 93
[2023-11-16 21:45] VITALS: BP 116/69; PULSE 67; RESP 18; TEMP 36.9; O2SAT 97
--- NOTE | 2023-11-16 22:02 | CPS ---
Unable to lift patient by myself to put vest on. Nursing unavailable at this time to help (giving report). Patient resting comfortably on NC
[2023-11-16] MEDS: Atorvastatin Calcium 80 MG Tablet GT (22:20)
[2023-11-17 03:10] VITALS: BMI 24.0
[2023-11-17] MEDS: Metoclopramide 10 MG/10 ML UDC 5 MG GT ×3 (05:51→22:59)
[2023-11-17] MEDS: Enoxaparin 40 MG/0.4 ML Syringe SC (05:51)
[2023-11-17] MEDS: Menthol/Lanolin/Calamine/Znox 113 GM Tube 1 APPLIC TOPICAL ×2 (05:52→22:56)
[2023-11-17] MEDS: Jevity 1.5. 1,000 ML Bottle 310 ML GT ×5 (05:52→22:57)
[2023-11-17 07:13] VITALS: O2SAT 97
[2023-11-17 07:37] VITALS: BP 113/66; PULSE 65; RESP 18; TEMP 36.9; O2SAT 94
[2023-11-17] MEDS: Aspirin 81 MG TAB.CHEW GT (09:59)
[2023-11-17] MEDS: Lansoprazole 15 MG Capsule.DR GT ×2 (09:59→22:58)
[2023-11-17] MEDS: NYSTATIN 500,000 UNIT/5 ML UDC 500000 UNIT PO ×4 (09:59→22:59)
[2023-11-17 13:28] VITALS: O2SAT 93
--- NOTE | 2023-11-17 14:16 | CASEMGMT ---
Rehab Unit Social Work Sw met with patient and spouse at bedside, introduced self and explained sw role during hospitalization. Sw completed Rehab Social work assessment with patient and spouse. Patient non-verbal at this time as a result of being intubated several times prior to current hospitalization/ transfer from [facility]. Patient able to shake and nod his head. Sw explained advanced directives with patient and spouse, stated there is no pressure to complete documents, and left for their review. 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 Sw utilized active listening, provided support and empathy and offered to assist with advanced directives should they chose to complete them. No additional needs or concerns at this time. Robb Ga, MECHANICAL SYSTEMS DESIGN ENGINEER, TELEPHONIC CASE MANAGER
[2023-11-17 15:12] VITALS: BMI 24.0
--- NOTE | 2023-11-17 15:16 | CHAPLAIN ---
Type of Pastoral Visit _x__ Initial Visit ___ Follow-up Visit ___ On-call Visit ___ General Patient Visit ___ Spiritual Assessment ___ Family Conference ___ Bereavement ___ Rapid Response ___ Code Blue ___ Other (describe below) Pastoral Care Referral From _x__ Patient _x__ Family ___ Nurse ___ Physician ___ Collection Administrator ___ Manager Research Development ___ Other (describe below) Sacrament/Intervention _x__ Active listening ___ Anointing ___ Church ___ Bereavement ___ Communion _x__ Marah exploration ___ _x__ Life review _x__ Prayer ___ Reconciliation ___ Sacrament of Sick _x__ Supportive presence ___ Wedding ___ Other (describe below) Pastoral Comments patient was just finishing up therapy when this maintenance technician 3rd shift came to visit; spouse is with pt at this time and she does all the information sharing and explanation of care thus far; pt is able to follow instructions and comprehend apparently but does not speak; pt nods, makes motions, looks at people and objects purposefully; pt also has a respiratory issue which requires O2 and suction; spouse gives timeline and explains that the family just moved to [place] in August from [place]; this has all been a big adjustment; spouse has family that lives in [facility]; family had a mu-ism connection in [place] of the [employer] but have not been able to establish a new mu-ism membership here yet; pt is tired but both welcome a prayer and future visits; spouse is encouraged to get her rest and have care for self too as this journey may take significant time; spouse denies any further concerns at this time
[2023-11-17 22:30] VITALS: BP 118/70; PULSE 81; RESP 18; TEMP 36.1; O2SAT 95; BMI 24.0
[2023-11-17] MEDS: Atorvastatin Calcium 80 MG Tablet GT (22:59)
[2023-11-18] MEDS: Metoclopramide 10 MG/10 ML UDC 5 MG GT ×3 (05:30→22:11)
[2023-11-18] MEDS: Enoxaparin 40 MG/0.4 ML Syringe SC (05:30)
[2023-11-18] MEDS: Acetaminophen 650 MG/20 ML UDC GT ×2 (05:31→22:10)
[2023-11-18] MEDS: Senna/Docusate Sodium 1 Tablet 2 TABLET GT (05:31)
[2023-11-18] MEDS: Jevity 1.5. 1,000 ML Bottle 310 ML GT ×5 (05:32→22:11)
[2023-11-18] MEDS: Menthol/Lanolin/Calamine/Znox 113 GM Tube 1 APPLIC TOPICAL ×2 (05:32→22:10)
[2023-11-18 07:46] VITALS: BP 117/67; PULSE 68; RESP 12; TEMP 37; O2SAT 92
[2023-11-18] MEDS: Lansoprazole 15 MG Capsule.DR GT ×2 (08:46→22:10)
[2023-11-18] MEDS: NYSTATIN 500,000 UNIT/5 ML UDC 500000 UNIT PO ×4 (08:46→22:10)
[2023-11-18] MEDS: Aspirin 81 MG TAB.CHEW GT (08:46)
--- NOTE | 2023-11-18 13:16 | CASEMGMT ---
Social Work IDT met with patient and for Team meeting. Discussed patient's progress in PT/OT/ST/SN. Educated to MMO CM insurance with [employer] 11/24 and continued stay is not guaranteed with each review. 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 was working and caring for 3 children as well. Pt and 's goal is to return home with , however, unsure of pt's progress and ability to return home at this time. Pt has new peg, new espinosa, and new O2. SW briefly discussed skilled and nonskilled HHC services, SNF care and financial liability. Will ReTeam weekly. SW will continue to follow for DC planning. DANIEL MckeonW
[2023-11-18 15:37] VITALS: BMI 24.0
--- NOTE | 2023-11-18 16:21 | PN_ITS ---
Subjective Subjective Casey was seen on team rounds today. His Beverly was present in the room. Afebrile VSS Maintaining appropriate oxygen saturation on RA Remains NPO with TF via PEG. He is tolerating the TF without residuals Denies heartburn. Discussed with nursing - no problems that need addressed Reviewed the PT/OT/ST notes He is making progress with all three modalities. Still drowsy, brett in the AM but, much more alert than he was prior to discontinuing Thorazine. Medication list reviewed. Still non-verbal. Beverly tells me that he was able to verbalize after the first intubation but not after the second time he was intubated for aspiration pneumonia. He is swallowing a little......very weak but, he is doing some swallowing. He understands what we are saying to him and is able to follow commands although sometimes his responses are slow. He is able to write and he is able to read. He knows what he wants to say but just is not able to verbalize yet due to weakness from 2 intubations recently. He is able to stand and ambulate with physical therapy now. He is making good eye contact with me. Always willing to participate in therapy. He has had no hiccups since Thorazine was discontinued. EKG shows normal sinus rhythm with no QT prolongation. It was interpreted as inferior infarct age undetermined but there is a small R wave in lead II and lead AVF and no Q waves in leads II. [place] is normal. Beverly was able to tell us that he snores loudly, stops breathing at times when sleeping, has RLS, is chronically fatigued......needs a whole pot of coffee to get him going in the AM. He had no apneic episodes while I was observing him during TEAM rounds. He was awake and interacting on rounds. I observed him later after therapy when he was fatigued and falling asleep and he was having Mehran solorzano respirations with apenic episodes last 10-15 sec. ' He is able to answer my yes and no questions when I able able to keep him awake. Responses are delayed. He denies CP, Calf Pain, abd pain heartburn and nausea.. Objective Data Objective Data Vital Signs: Vital Signs Temp Pulse Resp BP Pulse Ox O2 Del Method O2 Flow Rate 98.6 F 68 12 117/67 92 Room Air 3 11/18/23 07:46 11/18/23 07:46 11/18/23 07:46 11/18/23 07:46 11/18/23 07:46 11/18/23 10:00 11/18/23 14:54 FiO2 2 11/18/23 11:49 Oxygen Flow Rate (L/min) 3 Oxygen Delivery Method Room Air Weight: 181 lb 2 oz Body Mass Index (BMI) 24.0 Intake & Output: Intake and Output for Last 24 Hours 11/16/23 11/17/23 11/18/23 23:59 23:59 23:59 Intake Total 2580 / 2580 1820 / 1820 710 / 710 Output Total 1625 / 1625 1175 / 1175 750 / 750 Balance 955 / 955 645 / 645 -40 / -40 Lab / Micro Data 11/14/23 05:05 11/14/23 05:05 Micro: Microbiology 11/15/23 18:10 Stool Stool Occult Blood (JACOBO) - Final Occult Blood Positive Physical Exam Const Constitutional Narrative: fatigues easily. He is more alert in the afternoons with therapy but is fatigued and drowsy afterward. He makes good eye contact with me when he is alert. He is able to cough up secretions and he does suction himself a lot of the time. He is very motivated to get better and never refused his therapy. HEENT normocephalic and head/scalp atraumatic Neck No nuchal rigidity, supple, no JVD and no carotid bruits Resp Resp Narrative: Having Mehran-Solorzano respirations. I replaced his oxygen that he had placed on top of his head. Also having apneic periods of 10 to 15 seconds. Cough is productive but secretions are clear when they are suctioned. Following suctioning the lungs are clear to auscultation anterior and lateral. Effort and Inspection: Negative for respiratory distress, labored or uses accessory muscles Cardio regular rate, regular rhythm, no murmurs, no rub and no gallops Cardio Narrative: No ectopy GI normal to inspection, nondistended, normoactive bowel sounds, soft to palpation and non-tender GI Narrative: No guarding with palpation of the abdomen. The PEG site is free of erythema, purulent discharge. Extremity no calf tenderness General Extremity: Negative for cyanosis or edema Skin General Skin Exam: no breakdown Rashes: no rashes Psych cooperative Psych Narrative: He is motivated and cooperative and wants to get better. Hard to assess for depression in this patient because he is nonverbal at the present time. He has not had crying episodes and he wants to eat. Speech therapy explains to him that until his swallowing muscles are stronger he will need to remain just on tube feed. He seems to understand but then forgets. 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: (4) Diplopia: (5) Aphasia complicating stroke: (6) Dysphagia: QUALIFIERS: Dysphagia type: oropharyngeal phase Qualified Cod e(s): R13.12 - Dysphagia, oropharyngeal phase (7) Presence of externally removable percutaneous endoscopic gastrostomy (PEG) tube: (8) Intractable singultus: (9) Facial droop due to acute stroke: (10) Aspiration pneumonia: QUALIFIERS: Aspiration pneumonia type: due to gastric secretions Laterality: right Lung location: upper lobe of lung Qualified Code(s): J69.0 - Pneumonitis due to inhalation of food and vomit (11) Urinary incontinence as sequela of cerebrovascular accident (CVA): (12) GERD (gastroesophageal reflux disease): QUALIFIERS: Esophagitis presence: esophagitis presence not specified Qualified Code(s): K21.9 - Gastro-esophageal reflux disease without esophagitis (13) Hyperlipidemia: QUALIFIERS: Hyperlipidemia type: pure hypercholesterolemia Qualified Code(s): E78.00 - Pure hypercholesterolemia, unspecified (14) Hypertension: QUALIFIERS: Hypertension type: primary hypertension Qualified Code(s): I10 - Essential (primary) hypertension (15) Grade I diastolic dysfunction: (16) Anemia: QUALIFIERS: Anemia type: other cause PLAN: Due to blood loss from lab draws and procedures while at [facility] (17) Thrush, oral: (18) Apnea for greater than 15 seconds: (19) Mehran-Solorzano respiration: (20) RANDELL (obstructive sleep apnea): PLAN: Plan 1. Continue aggressive therapy. 2. Decrease Reglan to twice daily, 30 minutes prior to the first feeding of the day and 30 minutes prior to the last feeding of the day. Continue to monitor f or residuals. 3. Recheck a BMP and CBC on Wednesday. 4. I suspect that he has obstructive sleep apnea because he has a STOP-BANG score of 5 and has loud snoring, apneic episodes while sleeping observed by his , restless leg syndrome, chronic fatigue and high blood pressure. The neck circumference is not greater than 40 and his BMI is 23.9. Information was obtained from his . He may also have coexisting central sleep apnea because the apneic periords are sometimes last >15 sec. Will continue supplemental oxygen with exercise and anytime he is sleeping. I discussed this with the sleep lab and they spoke to the sleep specialist who recommends keeping him on oxygen. Will try CPAP tonight to see if he is more alert after a night or 2 on CPAP. Because his BMI is low and his neck circumference is not greater than 35 even will start with a pressure of 5....... sleep lab plugged his information into a formula that calculates the pressure needed to be 5. Will need a formal sleep study when he is discharged from the hospital. will also need follow up with pulmonology and possibly a sleep specialist. Casey is non-verbal at the present time and I am unable to get any info from him about falling asleep at work, when reading a book, when riding in the car for more than 30 minutes, while talking with someone. Charges/Coding Visit Charges Inpatient E&M: 12654 Subs Hosp L2
[2023-11-18 18:07] VITALS: BP 117/69; PULSE 69; RESP 17; TEMP 37; O2SAT 97
[2023-11-18 21:45] VITALS: PULSE 69; RESP 17; BMI 24.0
[2023-11-18] MEDS: Atorvastatin Calcium 80 MG Tablet GT (22:10)
[2023-11-18 23:10] VITALS: PULSE 77; RESP 20; O2SAT 92
[2023-11-19 04:30] VITALS: PULSE 60; RESP 16; O2SAT 93
[2023-11-19 06:00] VITALS: BMI 24.2
[2023-11-19] MEDS: Enoxaparin 40 MG/0.4 ML Syringe SC (06:13)
[2023-11-19] MEDS: Jevity 1.5. 1,000 ML Bottle 310 ML GT ×5 (06:13→23:00)
[2023-11-19] MEDS: Metoclopramide 10 MG/10 ML UDC 5 MG GT ×2 (06:14→22:41)
[2023-11-19] MEDS: Menthol/Lanolin/Calamine/Znox 113 GM Tube 1 APPLIC TOPICAL ×2 (06:14→23:00)
[2023-11-19] MEDS: Magnesium Hydroxide 30 ML UDC GT (06:14)
[2023-11-19 06:57] VITALS: O2SAT 97
[2023-11-19 08:43] VITALS: BP 111/71; PULSE 68; RESP 20; TEMP 36.7; O2SAT 90
[2023-11-19] MEDS: Lansoprazole 15 MG Capsule.DR GT ×2 (09:14→22:39)
[2023-11-19] MEDS: NYSTATIN 500,000 UNIT/5 ML UDC 500000 UNIT PO ×4 (09:14→22:42)
[2023-11-19] MEDS: Aspirin 81 MG TAB.CHEW GT (09:14)
[2023-11-19 10:17] VITALS: BMI 24.2
--- NOTE | 2023-11-19 14:34 | NURSING ---
educated and assisted with peg tube feeding this shift.
--- NOTE | 2023-11-19 18:53 | PN_ITS ---
Subjective Subjective Afebrile VSS Maintaining appropriate oxygen saturation on RA Remains n.p.o. tolerating tube feed with no residuals. Denies heartburn. No diarrhea. Discussed with nursing - no problems that need addressed Reviewed the PT/OT/ST notes Medication list reviewed. Tolerated CPAP for almost 1-1/2 hours last night before he removed it. He is more alert today was able to play Yonatan with his and the occupational therapist. Continues to make progress in therapy. Casey denies cephalgia, lightheadedness, vertigo, shortness of breath, palpitations, chest pain, nausea, abdominal pain, pelvic pain/suprapubic pain and calf pain. Still basically nonverbal but, with head nods, thumbs up and down, facial expressions and pantomiming he is able to make us understand him. Objective Data Objective Data Vital Signs: Vital Signs Temp Pulse Resp BP Pulse Ox O2 Del Method O2 Flow Rate 98.1 F 68 20 H 111/71 90 Nasal Cannula 2 11/19/23 08:43 11/19/23 08:43 11/19/23 08:43 11/19/23 08:43 11/19/23 08:43 11/19/23 10:00 11/19/23 11:23 FiO2 97 11/18/23 21:45 Oxygen Flow Rate (L/min) 2 Oxygen Delivery Method Nasal Cannula Weight: 182 lb 8.684 oz Body Mass Index (BMI) 24.2 Intake & Output: Intake and Output for Last 24 Hours 11/17/23 11/18/23 11/19/23 23:59 23:59 23:59 Intake Total 1820 / 1820 1420 / 1420 960 / 960 Output Total 1175 / 1175 1150 / 1150 1000 / 1000 Balance 645 / 645 270 / 270 -40 / -40 Lab / Micro Data 11/25/23 05:35 11/25/23 05:35 Micro: Microbiology 11/15/23 18:10 Stool Stool Occult Blood (JACOBO) - Final Occult Blood Positive Physical Exam Const alert Constitutional Narrative: LOC is much better than at admission. Stays awake easily now for therapy s essions. General Appearance: cooperative HEENT HEENT Narrative: clear oral secretions. Neck No nuchal rigidity Resp clear to auscultation bilaterally Resp Narrative: CTA after deep cough and suctioning. He has a good cough now and we no longer need to assist the cough. No needing the percussion vest much now. Effort and Inspection: Negative for tachypneic Cardio regular rate, regular rhythm and no gallops GI normal to inspection, nondistended, normoactive bowel sounds, soft to palpation and non-tender GI Narrative: no guarding with palpation. The PEG site has no DC and no erythema or swelling. It is non-tender to palpation around the PEG site. 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 (5) Aphasia complicating stroke: (6) Dysphagia: QUALIFIERS: Dysphagia type: oropharyngeal phase Qualified Code(s): R13.12 - Dysphagia, oropharyngeal phase (7) Presence of externally removable percutaneous endoscopic gastrostomy (PEG) tube: (8) Intractable singultus: (9) Facial droop due to acute stroke: (10) Aspiration pneumonia: QUALIFIERS: Aspiration pneumonia type: due to gastric secretions Laterality: right Lung location: upper lobe of lung Qualified Code(s): J69.0 - Pneumonitis due to inhalation of food and vomit (11) Urinary incontinence as sequela of cerebrovascular accident (CVA): (12) GERD (gastroesophageal reflux disease): QUALIFIERS: Esophagitis presence: esophagitis presence not specified Qualified Code(s): K21.9 - Gastro-esophageal reflux disease without esophagitis (13) Hyperlipidemia: QUALIFIERS: Hyperlipidemia type: pure hypercholesterolemia Qualified Code(s): E78.00 - Pure hypercholesterolemia, unspecified (14) Hypertension: QUALIFIERS: Hypertension type: primary hypertension Qualified Code(s): I10 - Essential (primary) hypertension (15) Grade I diastolic dysfunction: (16) Anemia: QUALIFIERS: Anemia type: other cause Other causes of anemia: other cause, not classified Qualified Code(s): D64.89 - Other specified anemias (17) Thrush, oral: (18) Apnea for greater than 15 seconds: (19) Mehran-Solorzano respiration: (20) RANDELL (obstructive sleep apnea): (21) Beckham catheter present: (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 Continue therapy 2. Continue CPAP as tolerated and work up to 6 to 7 hours at night. 3. We discussed with Casey and Beverly starting a medication at at bedtime to help him relax. I reinforced that I do not like antihistamines to help with sleep and I do not believe melatonin is very effective. I would like to avoid medications that can increase brain dysfunction. He has used Marijuana in the past and in fact it was present in the drug screen at the other hospital at the time of admission for stroke. Beverly is worried about possible drug screen at [facility] but I explained that this is a temporary thing until he develops a tolerance for the CPAP and is able to wear it through the night. May need to try different types of masks. We discussed Marinol. Casey gave me a thumbs up and we will try this tonight. Start Remeron at 15 mg Q HS........this will also help with sleep. After the Remeron becomes therapeutic will attempt to DC Marinol Charges/Coding Visit Charges Inpatient E&M: 95498 Subs Hosp L2
[2023-11-19 22:00] VITALS: BP 113/64; PULSE 75; RESP 16; TEMP 36.9; O2SAT 92; O2SAT 95
[2023-11-19] MEDS: Atorvastatin Calcium 80 MG Tablet GT (22:40)
[2023-11-19] MEDS: Mirtazapine 15 MG Tablet GT (23:00)
[2023-11-20 00:10] VITALS: PULSE 75; O2SAT 92
[2023-11-20] MEDS: Metoclopramide 10 MG/10 ML UDC 5 MG GT ×2 (06:10→21:41)
[2023-11-20] MEDS: Enoxaparin 40 MG/0.4 ML Syringe SC (06:10)
[2023-11-20] MEDS: Menthol/Lanolin/Calamine/Znox 113 GM Tube 1 APPLIC TOPICAL ×2 (06:12→21:47)
[2023-11-20] MEDS: Jevity 1.5. 1,000 ML Bottle 310 ML GT ×5 (06:12→21:46)
--- NOTE | 2023-11-20 06:31 | NURSING ---
Residual 0ml this am.
[2023-11-20 08:00] VITALS: BP 100/65; PULSE 59; RESP 16; TEMP 36.4; O2SAT 92
[2023-11-20] MEDS: NYSTATIN 500,000 UNIT/5 ML UDC 500000 UNIT PO ×4 (08:55→21:42)
[2023-11-20] MEDS: Lansoprazole 15 MG Capsule.DR GT ×2 (08:55→21:41)
[2023-11-20] MEDS: Aspirin 81 MG TAB.CHEW GT (08:55)
[2023-11-20 09:31] VITALS: O2SAT 92
[2023-11-20 15:49] VITALS: BMI 24.2
[2023-11-20 19:39] VITALS: BP 111/62; PULSE 72; RESP 18; TEMP 37.4; O2SAT 92
[2023-11-20] MEDS: Atorvastatin Calcium 80 MG Tablet GT (21:41)
[2023-11-20] MEDS: Mirtazapine 15 MG Tablet GT (21:41)
[2023-11-20 22:00] VITALS: O2SAT 95
[2023-11-21 00:19] VITALS: BMI 24.2
--- NOTE | 2023-11-21 03:22 | NURSING ---
Reviewed and agree with Jessy BATISTA, documentation and assessment charting.
[2023-11-21] MEDS: Enoxaparin 40 MG/0.4 ML Syringe SC (05:41)
[2023-11-21] MEDS: Metoclopramide 10 MG/10 ML UDC 5 MG GT ×2 (05:41→20:48)
[2023-11-21] MEDS: Jevity 1.5. 1,000 ML Bottle 310 ML GT ×5 (05:42→21:09)
[2023-11-21] MEDS: Menthol/Lanolin/Calamine/Znox 113 GM Tube 1 APPLIC TOPICAL ×2 (05:42→21:09)
[2023-11-21 07:30] VITALS: O2SAT 94
[2023-11-21 08:30] VITALS: BP 107/68; PULSE 60; RESP 15; TEMP 36.4; O2SAT 98
[2023-11-21] MEDS: Acetaminophen 650 MG/20 ML UDC GT (09:25)
[2023-11-21] MEDS: Lansoprazole 15 MG Capsule.DR GT ×2 (09:25→20:49)
[2023-11-21] MEDS: Aspirin 81 MG TAB.CHEW GT (09:25)
[2023-11-21] MEDS: NYSTATIN 500,000 UNIT/5 ML UDC 500000 UNIT PO ×4 (09:26→20:49)
[2023-11-21 09:43] VITALS: BMI 24.2
[2023-11-21 19:05] VITALS: BP 110/65; PULSE 66; RESP 16; TEMP 36.4; O2SAT 94
[2023-11-21] MEDS: Mirtazapine 15 MG Tablet GT (20:49)
[2023-11-21] MEDS: Atorvastatin Calcium 80 MG Tablet GT (20:49)
[2023-11-21 22:00] VITALS: PULSE 66; RESP 15; O2SAT 94
[2023-11-21 23:28] VITALS: BMI 24.2
[2023-11-22 01:10] VITALS: PULSE 76; O2SAT 92
[2023-11-22] MEDS: Metoclopramide 10 MG/10 ML UDC 5 MG GT ×2 (05:14→20:31)
[2023-11-22] MEDS: Enoxaparin 40 MG/0.4 ML Syringe SC (05:14)
[2023-11-22] MEDS: Acetaminophen 650 MG/20 ML UDC GT ×3 (05:15→20:47)
[2023-11-22] MEDS: Menthol/Lanolin/Calamine/Znox 113 GM Tube 1 APPLIC TOPICAL ×2 (05:17→20:32)
[2023-11-22] MEDS: Jevity 1.5. 1,000 ML Bottle 310 ML GT ×5 (05:17→20:32)
[2023-11-22 06:52] VITALS: O2SAT 96
[2023-11-22 07:26] VITALS: BP 110/70; PULSE 53; RESP 17; TEMP 36.8; O2SAT 99
[2023-11-22] MEDS: Aspirin 81 MG TAB.CHEW GT (10:08)
[2023-11-22] MEDS: Lansoprazole 15 MG Capsule.DR GT ×2 (10:08→20:31)
[2023-11-22] MEDS: NYSTATIN 500,000 UNIT/5 ML UDC 500000 UNIT PO ×4 (10:08→20:32)
--- NOTE | 2023-11-22 12:23 | PN_ITS ---
Subjective Subjective Afebrile VSS Maintaining appropriate oxygen saturation on a 2LPM NC Remains n.p.o. on tube feed. Discussed with nursing -has not been wearing CPAP at night, the nurses place it on and he keeps taking it off. Reviewed the PT/OT/ST notes - He is making progress. Medication list reviewed. He is nonverbal but he is able to appropriately answer yes and no questions with a head nod or a thumbs up with slow response. He denies chest pain, headache, shortness of breath, nausea/heartburn, pain, calf tenderness. does not appear to be in any distress. He was sitting in the therapy room playing ZHANNA with OT and his when I initially saw him. Objective Data Objective Data Vital Signs: Vital Signs Temp Pulse Resp BP Pulse Ox O2 Del Method O2 Flow Rate 98.2 F 53 L 17 110/70 99 Nasal Cannula 2 11/22/23 07:26 11/22/23 07:26 11/22/23 07:26 11/22/23 07:26 11/22/23 07:26 11/22/23 07:26 11/22/23 07:26 FiO2 97 11/18/23 21:45 Oxygen Flow Rate (L/min) 2 Oxygen Delivery Method Nasal Cannula Weight: 182 lb 8.684 oz Body Mass Index (BMI) 24.2 Intake & Output: Intake and Output for Last 24 Hours 11/20/23 11/21/23 11/22/23 23:59 23:59 23:59 Intake Total 2810 / 2810 2150 / 2150 540 / 540 Output Total 1100 / 1100 1450 / 1450 300 / 300 Balance 1710 / 1710 700 / 700 240 / 240 Lab / Micro Data 11/14/23 05:05 11/14/23 05:05 Micro: Microbiology 11/15/23 18:10 Stool Stool Occult Blood (JACOBO) - Final Occult Blood Positive Physical Exam Const Constitutional Narrative: He is impulsive with poor safety awareness. Forgets to cover nursing when he wants to go to the bathroom. Gets up by himself. Resp Resp Narrative: Having Mehran-Solorzano respirations. I replaced his oxygen that he had placed on top of his head. Also having apneic periods of 10 to 15 seconds. Cough is productive but secretions are clear when they are suctioned. Following suctioning the lungs are clear to auscultation anterior and lateral. Effort and Inspection: Negative for respiratory distress, labored or uses accessory muscles Cardio regular rate, regular rhythm, no murmurs, no rub and no gallops Cardio Narrative: No ectopy GI normal to inspection, nondistended, normoactive bowel sounds, soft to palpation and non-tender GI Narrative: No guarding with palpation of the abdomen. The PEG site is free of erythema, purulent discharge. 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: (4) Diplopia: (5) Aphasia complicating stroke: (6) Dysphagia: QUALIFIERS: Dysphagia type: oropharyngeal phase Qualified Code(s): R13.12 - Dysphagia, oropharyngeal phase (7) Presence of externally removable percutaneous endoscopic gastrostomy (PEG) tube: (8) Intractable singultus: (9) Facial droop due to acute stroke: (10) Aspiration pneumonia: QUALIFIERS: Aspiration pneumonia type: due to gastric secretions Laterality: right Lung location: upper lobe of lung Qualified Code(s): J69.0 - Pneumonitis due to inhalation of food and vomit (11) Urinary incontinence as sequela of cerebrovascular accident (CVA): (12) GERD (gastroesophageal reflux disease): QUALIFIERS: Esophagitis presence: esophagitis presence not specified Qualified Code(s): K21.9 - Gastro-esophageal reflux disease without esophagitis (13) Hyperlipidemia: QUALIFIERS: Hyperlipidemia type: pure hypercholesterolemia Qualified Code(s): E78.00 - Pure hypercholesterolemia, unspecified (14) Hypertension: QUALIFIERS: Hypertension type: primary hypertension Qualified Code(s): I10 - Essential (primary) hypertension (15) Grade I diastolic dysfunction: (16) Anemia: QUALIFIERS: Anemia type: other cause (17) Thrush, oral: (18) Apnea for greater than 15 seconds: (19) Mehran-Solorzano respiration: (20) RANDELL (obstructive sleep apnea): PLAN: Plan 1. Continue therapy 2. Continue CPAP as tolerated and work up to 6 to 7 hours at night. 3. We discussed with Casey and Beverly starting a medication at at bedtime to help him relax. I reinforced that I do not like antihistamines to help with sleep and I do not believe melatonin is very effective. I would like to avoid medications that can increase brain dysfunction. He has used Marijuana in the past and in fact it was present in the drug screen at the other hospital at the time of admission for stroke. Beverly is worried about possible drug screen at work but I explained that this is a temporary thing until he develops a tolerance for the CPAP and is able to wear it through the night. May need to try different types of masks. We discussed Marinol. Casey gave me a thumbs up a nd we will try this tonight. Start Remeron at 15 mg Q HS........this will also help with sleep. After the Remeron becomes therapeutic will attempt to DC Marinol Charges/Coding Visit Charges Inpatient E&M: 13813 Subs Hosp L2
[2023-11-22 13:32] VITALS: O2SAT 97
--- NOTE | 2023-11-22 16:03 | CHAPLAIN ---
Type of Pastoral Visit ___ Initial Visit _x__ Follow-up Visit ___ On-call Visit ___ General Patient Visit ___ Spiritual Assessment ___ Family Conference ___ Bereavement ___ Rapid Response ___ Code Blue ___ Other (describe below) Pastoral Care Referral From _x__ Patient ___ Family ___ Nurse ___ Physician ___ Old Testament Professor ___ Senior Accountant Analyst ___ Other (describe below) Sacrament/Intervention ___ Active listening ___ Anointing ___ Jain ___ Bereavement ___ Communion ___ Marah exploration ___ ___ Life review _x__ Prayer ___ Reconciliation ___ Sacrament of Sick _x__ Supportive presence ___ Wedding ___ Other (describe below) Pastoral Comments patient is alone in the room and resting in bed; pt is offered presence, prayer, and any support needed; pt is unable to verbalize but accepts a prayer; affirming words given and offer of future support; pt keeps closing his eyes and so this visit is brief
[2023-11-22 17:00] VITALS: BMI 24.2
--- NOTE | 2023-11-22 17:11 | CPS ---
Used cough assist but only had saliva to suction.
[2023-11-22 19:55] VITALS: BP 115/68; PULSE 66; RESP 15; TEMP 36.2; O2SAT 92; BMI 24.2
[2023-11-22] MEDS: Atorvastatin Calcium 80 MG Tablet GT (20:31)
[2023-11-22] MEDS: Mirtazapine 15 MG Tablet GT (20:31)
[2023-11-22] MEDS: Senna/Docusate Sodium 1 Tablet 2 TABLET GT (20:31)
[2023-11-22 22:36] VITALS: PULSE 68; RESP 16; O2SAT 95
[2023-11-23 04:38] VITALS: PULSE 61; RESP 18; O2SAT 95
[2023-11-23] MEDS: Acetaminophen 650 MG/20 ML UDC GT ×2 (05:26→12:24)
[2023-11-23] MEDS: Enoxaparin 40 MG/0.4 ML Syringe SC (05:27)
[2023-11-23] MEDS: Metoclopramide 10 MG/10 ML UDC 5 MG GT ×2 (05:27→21:26)
[2023-11-23] MEDS: Menthol/Lanolin/Calamine/Znox 113 GM Tube 1 APPLIC TOPICAL ×2 (05:57→21:21)
[2023-11-23] MEDS: Jevity 1.5. 1,000 ML Bottle 310 ML GT ×2 (05:57→10:12)
[2023-11-23 07:30] VITALS: BP 103/71; PULSE 66; RESP 20; TEMP 36.5; O2SAT 96
[2023-11-23 07:36] VITALS: O2SAT 97
--- NOTE | 2023-11-23 07:37 | CPS ---
pt checked on this morning and pt refusing cough assist and vest at this time. Pt will notify nursing when he/if he needs it. suction at bedside.
[2023-11-23] MEDS: NYSTATIN 500,000 UNIT/5 ML UDC 500000 UNIT PO ×4 (10:08→21:19)
[2023-11-23] MEDS: Lansoprazole 15 MG Capsule.DR GT ×2 (10:08→21:19)
[2023-11-23] MEDS: Aspirin 81 MG TAB.CHEW GT (10:08)
[2023-11-23] MEDS: Jevity 1.5. 1,000 ML Bottle 300 ML GT ×4 (12:26→21:20)
[2023-11-23 14:21] VITALS: BMI 24.2
[2023-11-23 21:00] VITALS: BP 126/72; PULSE 61; RESP 18; TEMP 37.1; O2SAT 18; O2SAT 95; BMI 24.2
[2023-11-23] MEDS: Zolpidem Tartrate 5 MG Tablet 10 MG PO (21:18)
[2023-11-23] MEDS: Atorvastatin Calcium 80 MG Tablet GT (21:19)
[2023-11-23] MEDS: Mirtazapine 15 MG Tablet GT (21:19)
[2023-11-23] MEDS: Senna/Docusate Sodium 1 Tablet 2 TABLET GT (21:19)
[2023-11-23] MEDS: Arthritis Pain Compound 60 CLICK TUBE TOPICAL (21:20)
[2023-11-23 22:15] VITALS: PULSE 68; RESP 18; O2SAT 93
[2023-11-24 02:34] VITALS: PULSE 59; RESP 18; O2SAT 94
[2023-11-24] MEDS: Metoclopramide 10 MG/10 ML UDC 5 MG GT ×2 (06:30→20:58)
[2023-11-24] MEDS: Menthol/Lanolin/Calamine/Znox 113 GM Tube 1 APPLIC TOPICAL ×2 (06:31→22:26)
[2023-11-24] MEDS: Jevity 1.5. 1,000 ML Bottle 300 ML GT (06:32)
[2023-11-24] MEDS: Enoxaparin 40 MG/0.4 ML Syringe SC (06:32)
[2023-11-24 08:03] VITALS: O2SAT 95
[2023-11-24 09:24] VITALS: BP 111/70; PULSE 68; RESP 16; TEMP 37.1; O2SAT 95
--- NOTE | 2023-11-24 09:29 | NURSING ---
pt working with speech at this time
--- NOTE | 2023-11-24 09:48 | NURSING ---
speech in with pt
[2023-11-24 10:00] VITALS: PULSE 68; RESP 16
[2023-11-24] MEDS: Jevity 1.5. 1,000 ML Bottle 360 ML GT ×4 (10:00→22:26)
[2023-11-24] MEDS: Arthritis Pain Compound 60 CLICK TUBE TOPICAL ×2 (10:09→20:56)
[2023-11-24] MEDS: Lansoprazole 15 MG Capsule.DR GT ×2 (10:09→20:57)
[2023-11-24] MEDS: Aspirin 81 MG TAB.CHEW GT (10:09)
[2023-11-24] MEDS: NYSTATIN 500,000 UNIT/5 ML UDC 500000 UNIT PO (10:09)
--- NOTE | 2023-11-24 10:47 | PN_ITS ---
Subjective Subjective Afebrile VSS Maintaining appropriate oxygen saturation on RA Still n.p.o. Fluid balance is averaging between 425 and 700 for the past 72 hours Weight is up 1.4 pounds since admission. Discussed with nursing - He was able to wear CPAP last night Ambien was added to the Remeron last night. The TF residuals are good but, nursing feels the cough increases after a TF is given. secretions are clear. Reviewed the PT/OT/ST notes - he reported to the ST today that he is feeling sad. Medication list reviewed. Remeron was started on 11/19/2023. Currently taking 15 mg daily. does not appear to be in any distress. No tachypnea and no labored respirations. Does not appear to be in any pain. Denies cephalgia, CP, SOB, suprapubic pain and calf tenderness. Denies heartburn, abdominal cramping. Urine in the Beckham bag is pale yellow and clear. I discussed trying a voiding trial today and he is giving me a thumbs up. Objective Data Objective Data Vital Signs: Vital Signs Temp Pulse Resp BP Pulse Ox O2 Del Method O2 Flow Rate 98.7 F 68 16 111/70 95 Room Air 2 11/24/23 09:24 11/24/23 09:24 11/24/23 09:24 11/24/23 09:24 11/24/23 09:24 11/24/23 09:24 11/23/23 12:52 FiO2 97 11/18/23 21:45 Oxygen Flow Rate (L/min) 2 Oxygen Delivery Method Room Air Weight: 182 lb 8.684 oz Body Mass Index (BMI) 24.2 Intake & Output: Intake and Output for Last 24 Hours 11/22/23 11/23/23 11/24/23 23:59 23:59 23:59 Intake Total 2360 / 2360 2200 / 2200 200 / 200 Output Total 1800 / 1800 1775 / 1775 575 / 575 Balance 560 / 560 425 / 425 -375 / -375 Lab / Micro Data 11/14/23 05:05 11/14/23 05:05 Micro: Microbiology 11/15/23 18:10 Stool Stool Occult Blood (JACOBO) - Final Occult Blood Positive Physical Exam Narrative He was awake the entire time I was talking with him and examining him. He had no Mehran-Solorzano and no apneic periods. He was able to verbalize 2 words for me today. When I asked about sadness/depression he nodded his head yes. Slept better last night. Still slow to respond to questions but, less so than last week. Const oriented x3 and well nourished General Appearance: cooperative and well hydrated HEENT normocephalic HEENT Narrative: tongue coating is improving. Denies mouth pain Neck No nuchal rigidity Resp Resp Narrative: He continues to be able to suction his mouth. When I initially listened to him he was rhonchorous with sounds transmitted from the upper airway. After a cough and he suctioned himself for some clear sputum his lungs were clear to auscultation anterior and lateral. He is not tachypneic and respiration is not labored. He was awake the entire time I examined him and was not having apnea. Cardio regular rate, regular rhythm, no murmurs and no gallops Cardio Narrative: No ectopy Rate: Negative for bradycardia or tachycardic Peripheral Pulses: pulses 2+ throughout GI normal to inspection, nondistended, normoactive bowel sounds, soft to palpation and non-tender GI Narrative: No maceration around the PEG site and no erythema surrounding the insertion site. No purulent discharge. Extremity no calf tenderness General Extremity: Negative for edema Skin General Skin Exam: no breakdown Rashes: no rashes Neuro Neuro Narrative: More aware of what is going on around him and he is spending more hours a day awake although though process is still slow. He understands what I am asking him and responds with head nods, thumbs up, blinking his eyes. He was able to say two words to me today. 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 (12) GERD (gastroesophageal reflux disease): QUALIFIERS: Esophagitis presence: esophagitis presence not specified Qualified Code(s): K21.9 - Gastro-esophageal reflux disease without esophagitis (13) Hyperlipidemia: QUALIFIERS: Hyperlipidemia type: pure hypercholesterolemia Qualified Code(s): E78.00 - Pure hypercholesterolemia, unspecified (14) Hypertension: QUALIFIERS: Hypertension type: primary hypertension Qualified Code(s): I10 - Essential (primary) hypertension (15) Grade I diastolic dysfunction: (16) Anemia: QUALIFIERS: Anemia type: other cause Other causes of anemia: other cause, not classified Qualified Code(s): D64.89 - Other specified anemias PLAN: due to frequent blood draws while acutely ill with CVA/aspiration PNA. Also had a PEG inserted with mild acute blood loss. 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 Continue therapy 2. Voiding trial today 3. If he continues to tolerate Remeron without any GI side effects will increase the dose to 30 mg daily this weekend. 4. Continue Ambien at at bedtime since he was able to sleep well last night and he was able to keep the CPAP on 5. Continue oxygen therapy anytime he is in his room in bed because he is still having apnea if he falls asleep. Pulse ox with therapy while he is alert is appropriate on room air. 6. Continue the PPI and Reglan for heartburn and hiccups. Charges/Coding Visit Charges Inpatient E&M: 82921 Subs Hosp L2
[2023-11-24 15:47] VITALS: BMI 24.2
--- NOTE | 2023-11-24 15:52 | NURSING ---
pt did not refuse stroke teaching-he was tired w/ eyes closed while I discussed diet and factors w/ his -none of the selections for teaching were appropriate
--- NOTE | 2023-11-24 17:30 | NURSING ---
pt shakes head no when asked if he had the urge to urinate-bladder scanned for 68 ml-will continue to monitor
[2023-11-24 20:47] VITALS: BP 114/66; PULSE 64; RESP 18; TEMP 36.8; O2SAT 98
[2023-11-24] MEDS: Mirtazapine 15 MG Tablet GT (20:57)
[2023-11-24] MEDS: Atorvastatin Calcium 80 MG Tablet GT (20:57)
[2023-11-24] MEDS: Zolpidem Tartrate 5 MG Tablet 10 MG PO (21:02)
[2023-11-24 21:26] VITALS: RESP 18; O2SAT 98
--- NOTE | 2023-11-24 23:26 | NURSING ---
Patient's espinosa catheter recently removed. Bladder scanned at HS with amount noted to be 621cc. Patient straight cath'd at this time with result of 630cc. Clarification needed for when to straight cath patient and when to replace espinosa if needed. Will continue to monitor.
[2023-11-25] VITALS (7 sets, daily range): BP systolic 116–134; BP diastolic 71–76; PULSE 62–77; RESP 16–18; TEMP 36.8–37.1; O2SAT 92–95; BMI 24.2
[2023-11-25] MEDS: Enoxaparin 40 MG/0.4 ML Syringe SC (05:37)
[2023-11-25] MEDS: Menthol/Lanolin/Calamine/Znox 113 GM Tube 1 APPLIC TOPICAL ×2 (05:38→21:40)
[2023-11-25] MEDS: Metoclopramide 10 MG/10 ML UDC 5 MG GT ×2 (05:38→21:39)
[2023-11-25] MEDS: Jevity 1.5. 1,000 ML Bottle 360 ML GT ×5 (05:39→21:40)
[2023-11-25 06:02] LABS: Hemoglobin 10.7 g/dL (13.0-16.5); Mean Corp Hgb Conc 31.5 g/dL (32-36); Mean Corpuscular Hgb 29.5 pg (27.0-32.0); Mean Corpuscular Volume 93.7 fL (80-94); Mean Platelet Vol. 10.3 fl (6.2-12.0); Platelet Count 294 K/mm3 (150-450); RBC Distribution Width CV 12.6 % (11.6-14.6); RBC Distribution Width SD 42.7 fl (35.1-43.9); Red Blood Count 3.63 M/mm3 (4.6-6.2); White Blood Count 7.4 K/mm3 (4.4-11.0)
--- NOTE | 2023-11-25 06:28 | NURSING ---
Pt bladder scanned for 340mL. Str/cathed for 340mL. Slight difficulty passing through prostate.
[2023-11-25 06:36] LABS: ALB/GLOB Ratio 0.8 RATIO (0.9-2.4); AST(SGOT) 44 U/L (15-37); Alanine Aminotransfer ALT/SGPT 42 U/L (16-61); Albumin, Serum 2.8 g/dL (3.2-5.0); Alkaline Phosphatase 69 U/L (45-117); Anion Gap 4 (5-15); BUN 20 mg/dL (7-18); Calcium,Total 8.4 mg/dL (8.5-10.1); Chloride 107 mmol/L (98-107); Creatinine, Serum 0.91 mg/dL (0.70-1.30); EST Glomerular Filtration Rate 97 mL/min (>60); Est Glom Filt Rate - Afr Amer 117 mL/min (>60); Estimated Creatinine Clearance 118.29 ml/min; Globulin 3.4 g/dL (2.2-4.2); Glucose 100 mg/dL (74-106); Magnesium 2.4 mg/dL (1.6-2.6); Phosphorus 4.9 mg/dL (2.5-4.9); Potassium 4.4 mmol/L (3.5-5.1); Protein, Total 6.2 g/dL (6.4-8.2); Sodium Level 141 mmol/L (136-145)
[2023-11-25] MEDS: Lansoprazole 15 MG Capsule.DR GT ×2 (09:56→21:41)
[2023-11-25] MEDS: Arthritis Pain Compound 60 CLICK TUBE TOPICAL ×2 (09:56→21:33)
[2023-11-25] MEDS: Aspirin 81 MG TAB.CHEW GT (09:58)
--- NOTE | 2023-11-25 11:42 | PCM.PROGNOTE ---
Subjective Subjective Afebrile VSS Maintaining appropriate oxygen saturation on RA Remains in Discussed with nursing -the Beckham catheter was discontinued yesterday for voiding trial. He had to be straight cathed and 11 PM for 630 mL and this morning. According. Continue to straight cath 24 hours as needed and if he is still retaining Reviewed the PT/OT/ST notes Medication list reviewed. All lab drawn this AM was personally reviewed. CBC shows a normal white blood cell count and a hemoglobin of 10.7, down from 11.1 on 11/14/2023. Platelet's are within normal limits. BMP shows normal electrolytes and a BUN of 20 (down from 38 on 11/14/2023) and a creatinine of 0.91 which is improving. Calcium corrected for hypoalbuminemia is within normal limits. Mag and Phos are also normal. LFTs are unremarkable. Nursing tells me that today his allowed Casey to get out of bed by himself and ambulate to the BR without assist and the call evans was not rung for assistance. This is not the first time. Need to reinforce with visitors that they are NOT to attempt to help him out of be, help him out of the chair or to assist him to ambulate. They must call staff. This puts him at high risk of falls due to poor safety awareness and impulsivity. He was able to initiate urination today but, due to non-compliance with calling nursing to take him to the toilet and then check a post void residual we did not get a PVR. Casey denies chest pain, shortness of breath, lightheadedness, N/V/heartburn. More alert. Did NOT wear the CPAP at all last night. He can not suction himself with the mask on and he is still having a lot of secretions. His tells me that he was taking Zyrtec at home for rhinitis. Objective Data Objective Data Vital Signs: Vital Signs Temp Pulse Resp BP Pulse Ox O2 Del Method O2 Flow Rate 98.3 F 68 16 116/71 93 Room Air 1 11/25/23 06:55 11/25/23 06:55 11/25/23 06:55 11/25/23 06:55 11/25/23 06:55 11/25/23 06:55 11/24/23 21:26 FiO2 97 11/18/23 21:45 Oxygen Flow Rate (L/min) 1 Oxygen Delivery Method Room Air Weight: 182 lb 8.684 oz Body Mass Index (BMI) 24.2 Intake & Output: Intake and Output for Last 24 Hours 11/23/23 11/24/23 11/25/23 23:59 23:59 23:59 Intake Total 2200 / 2200 2440 / 2440 760 / 760 Output Total 1775 / 1775 1755 / 1755 590 / 590 Balance 425 / 425 685 / 685 170 / 170 Lab / Micro Data 11/25/23 05:35 11/25/23 05:35 Labs: Laboratory Results - last 24 hr 11/25/23 05:35: WBC 7.4, RBC 3.63 L, Hgb 10.7 L, Hct 34.0 L, MCV 93.7, MCH 29.5, MCHC 31.5 L, RDW Std Deviation 42.7, RDW Coeff of Gunjan 12.6, Plt Count 294, MPV 10.3, Sodium 141, Potassium 4.4, Chloride 107, Carbon Dioxide 30.0, Anion Gap 4 L, BUN 20 H, Creatinine 0.91, Estim Creat Clear Calc 118.29, Est GFR (MDRD) Af Amer 117, Est GFR (MDRD) Non-Af 97, BUN/Creatinine Ratio 22.0 H, Glucose 100, Calcium 8.4 L, Phosphorus 4.9, Magnesium 2.4, Total Bilirubin 0.50, AST 44 H, ALT 42, Alkaline Phosphatase 69, Total Protein 6.2 L, Albumin 2.8 L, Globulin 3.4, Albumin/Globulin Ratio 0.8 L Micro: Microbiology 11/15/23 18:10 Stool Stool Occult Blood (JACOBO) - Final Occult Blood Positive Physical Exam HEENT normocephalic HEENT Narrative: tongue coating is improving. Denies mouth pain Resp Resp Narrative: He continues to be able to suction his mouth. When I initially listened to him he was rhonchorous with sounds transmitted from the upper airway. After a cough and he suctioned himself for some clear sputum his lungs were clear to auscultation anterior and lateral. He is not tachypneic and respiration is not labored. He was awake the entire time I examined him and was not having apnea. Cardio regular rate, regular rhythm, no murmurs and no gallops Cardio Narrative: No ectopy GI normal to inspection, nondistended, normoactive bowel sounds, soft to palpation and non-tender GI Narrative: No maceration around the PEG site and no erythema surrounding the insertion site. No purulent discharge. 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 (12) GERD (gastroesophageal reflux disease): QUALIFIERS: Esophagitis presence: esophagitis presence not specified Qualified Code(s): K21.9 - Gastro-esophageal reflux disease without esophagitis (13) Hyperlipidemia: QUALIFIERS: Hyperlipidemia type: pure hypercholesterolemia Qualified Code(s): E78.00 - Pure hypercholesterolemia, unspecified (14) Hypertension: QUALIFIERS: Hypertension type: primary hypertension Qualified Code(s): I10 - Essential (primary) hypertension (15) Grade I diastolic dysfunction: (16) Anemia: QUALIFIERS: Anemia type: other cause Other causes of anemia: other cause, not classified Qualified Code(s): D64.89 - Other specified anemias PLAN: due to frequent blood draws while acutely ill with CVA/aspiration PNA. Also had a PEG inserted with mild acute blood loss. 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 Continue therapy 2. Reinforced with Mrs. Rubin that she must not allow Casey to get out of bed or the recliner without summoning nursing for assistance. He is at HIGH RISK for falls and he is impulsive with poor safety awareness. All visitors MUST adhere to these rules. He was moved from 406 to 408 to be closer to the nurses station since he has getting out of bed without assist to use the BR. 3. Will have RT try different masks with Casey.......if he is able to tolerate the Nasal pillows he could still suction himself when needed. 4. Start Atrovent nasal spray 2 sprays each nostril twice daily to hopefully cut down on postnasal drip/posterior pharyngeal secretions. Charges/Coding Visit Charges Inpatient E&M: 25831 Subs Hosp L2
--- NOTE | 2023-11-25 13:00 | CASEMGMT ---
Addendum entered by Karrie Colin 11/26/23 16:28: Received benefits back from [employer] and left VM with on that information: deductible is met, but OOP has not been met. Once that is met, the pt is responsible for 10%. Addendum entered by Karrie Colin 11/25/23 16:17: [facility] returned call with benefits. SW phoned to update: 90% coverage after deductible is met. Pt deductible has been met for the year. ST is not covered. There is not visit limit. expressed frustration with no ST coverage. SW educated to the policy not providing coverage, not that it is not approved for the pt. Educated to private pay cost with [facility] at approx $259/visit with ST. SW educated to having SN, CANTOR and SW ordered as well, but duration and frequency is still decided by the insurance. Pt is receiving insurance coverage through employer, thus cannot change insurances and does not want to pay increased cost for finding individual insurance. RHODA confirmed [employer] carries all pt's needed supplies. Will await coverage and in-stock information. Awaiting coverage for peg through [facility]. SW will continue to follow. Original Note: Social Work IDT met with patient and for Team meeting. Discussed patient's progress in PT/OT/ST/SN. Educated to MMO CM insurance with [employer] 12/01 and requested DC plans in place. offered to complete P2P appeal, if DC date is issued. appreciative. SW still broached topic of DC plans of home vs SNF. /pt only want home, but requesting continued stay for ongoing nursing home and therapy needs. IDT agreeable. Discussed home needs: FWW, BSC, hospital bed, O2 at night, suction machine, new espinosa and peg supplies. expressed concern about coverage for DME and HHC. SW offered to contact DME and infusion companies and [facility] to inquire about coverage. appreciative. SW sent referrals to [employer], [facility], and [facility]. Will continue to follow. Karrie Colin, JAMMER OPERATOR GLUE JOINTER OPERATOR
[2023-11-25] MEDS: Zolpidem Tartrate 5 MG Tablet 10 MG PO (20:00)
[2023-11-25] MEDS: Ipratropium Bromide 0.06% NASAL SPRAY 2 SPRAY NASAL (21:33)
[2023-11-25] MEDS: Atorvastatin Calcium 80 MG Tablet GT (21:41)
[2023-11-25] MEDS: Mirtazapine 15 MG Tablet GT (21:41)
[2023-11-25] MEDS: Acetaminophen 650 MG/20 ML UDC GT (21:46)
[2023-11-26] MEDS: Metoclopramide 10 MG/10 ML UDC 5 MG GT ×2 (05:34→20:00)
[2023-11-26] MEDS: Menthol/Lanolin/Calamine/Znox 113 GM Tube 1 APPLIC TOPICAL ×2 (05:34→20:07)
[2023-11-26] MEDS: Enoxaparin 40 MG/0.4 ML Syringe SC (05:35)
[2023-11-26] MEDS: Jevity 1.5. 1,000 ML Bottle 360 ML GT ×5 (05:35→20:07)
[2023-11-26 06:00] VITALS: BMI 24.8
[2023-11-26 07:43] VITALS: BP 115/61; PULSE 72; RESP 17; TEMP 36.6; O2SAT 95
[2023-11-26] MEDS: Ipratropium Bromide 0.06% NASAL SPRAY 2 SPRAY NASAL ×2 (09:57→20:00)
[2023-11-26] MEDS: Aspirin 81 MG TAB.CHEW GT (09:57)
[2023-11-26] MEDS: Arthritis Pain Compound 60 CLICK TUBE TOPICAL ×2 (09:57→20:02)
[2023-11-26] MEDS: Lansoprazole 15 MG Capsule.DR GT ×2 (10:00→20:01)
[2023-11-26 12:30] VITALS: O2SAT 95
--- NOTE | 2023-11-26 12:41 | PCM.PN.BLA ---
Progress Note RT changed to a nasal mask last night for CPAP and he was started on Atrovent nasal spray to help cut down on PND and post pharynx secretions.........he was able to wear the CPAP all night and he is more alert today and moving better with therapy. HE had some heartburn today........therapy was started very shortly after the PEG feeding. Nursing asked them to allow at least 30 minutes prior to doing therapy after a PEG feeding.
[2023-11-26 17:00] VITALS: BMI 24.8
[2023-11-26 19:37] VITALS: BP 134/70; PULSE 73; RESP 16; TEMP 36.9; O2SAT 95
[2023-11-26] MEDS: Atorvastatin Calcium 80 MG Tablet GT (20:01)
[2023-11-26] MEDS: Mirtazapine 15 MG Tablet GT (20:02)
[2023-11-26] MEDS: Zolpidem Tartrate 5 MG Tablet 10 MG PO (20:04)
[2023-11-26 20:27] VITALS: PULSE 65; RESP 18; O2SAT 96
--- NOTE | 2023-11-26 21:14 | CPS ---
No Vest/Cough assist done d/t patient sleeping on CPAP at this time
--- NOTE | 2023-11-26 23:21 | CPS ---
No Vest/Cough assist done d/t patient sleeping on CPAP at this time
[2023-11-27 00:08] VITALS: PULSE 68; RESP 18; O2SAT 95
--- NOTE | 2023-11-27 03:27 | NURSING ---
Pt's brief is dry. Bladder scan for 306ml. Pt removes sheet and BLE in bed as if he is attempting to get oob. Drowsy and attempts to speak. Only able to comprehend the word I . Pt writes on white board I can pee . Utilized urinal and pt voided 300 ml clear, straw to brittany-colored urine w/ a slightly strong odor. Shakes head no when asked about any c/o pain or discomfort. Continue voiding trials. Will continue to monitor.
[2023-11-27] MEDS: Enoxaparin 40 MG/0.4 ML Syringe SC (06:42)
[2023-11-27] MEDS: Metoclopramide 10 MG/10 ML UDC 5 MG GT ×2 (06:42→21:32)
[2023-11-27] MEDS: Jevity 1.5. 1,000 ML Bottle 360 ML GT ×5 (06:43→21:35)
[2023-11-27] MEDS: Menthol/Lanolin/Calamine/Znox 113 GM Tube 1 APPLIC TOPICAL ×2 (06:44→20:45)
[2023-11-27 06:52] VITALS: PULSE 64; RESP 16; O2SAT 95
--- NOTE | 2023-11-27 06:53 | CPS ---
pt is on CPAP at this time and does not want to do the vest or cough assist.
--- NOTE | 2023-11-27 07:08 | NURSING ---
Residual 0ml this am prior to 0600 feeding.
[2023-11-27 09:05] VITALS: O2SAT 93
[2023-11-27 09:41] VITALS: BP 118/74; PULSE 63; RESP 17; TEMP 36.7; O2SAT 94
[2023-11-27] MEDS: Lansoprazole 15 MG Capsule.DR GT ×2 (09:41→21:33)
[2023-11-27] MEDS: Aspirin 81 MG TAB.CHEW GT (09:41)
[2023-11-27] MEDS: Arthritis Pain Compound 60 CLICK TUBE TOPICAL ×2 (09:41→21:25)
[2023-11-27] MEDS: Ipratropium Bromide 0.06% NASAL SPRAY 2 SPRAY NASAL ×2 (09:41→21:32)
[2023-11-27 11:01] VITALS: BMI 24.8
[2023-11-27 19:41] VITALS: BP 123/76; PULSE 77; RESP 18; TEMP 37.2; O2SAT 94
[2023-11-27 21:23] VITALS: BMI 24.8
[2023-11-27] MEDS: Zolpidem Tartrate 5 MG Tablet 10 MG PO (21:31)
[2023-11-27] MEDS: Mirtazapine 15 MG Tablet GT (21:33)
[2023-11-27] MEDS: Atorvastatin Calcium 80 MG Tablet GT (21:33)
[2023-11-27] MEDS: Acetaminophen 650 MG/20 ML UDC GT (21:34)
[2023-11-28] MEDS: Enoxaparin 40 MG/0.4 ML Syringe SC (05:24)
[2023-11-28] MEDS: Metoclopramide 10 MG/10 ML UDC 5 MG GT ×2 (05:25→20:42)
[2023-11-28] MEDS: Menthol/Lanolin/Calamine/Znox 113 GM Tube 1 APPLIC TOPICAL ×2 (05:26→21:19)
[2023-11-28] MEDS: Jevity 1.5. 1,000 ML Bottle 360 ML GT ×5 (05:34→21:18)
[2023-11-28 07:08] VITALS: O2SAT 98
[2023-11-28 07:29] VITALS: BP 114/64; PULSE 62; RESP 18; TEMP 36.6; O2SAT 97
[2023-11-28] MEDS: Aspirin 81 MG TAB.CHEW GT (09:35)
[2023-11-28] MEDS: Ipratropium Bromide 0.06% NASAL SPRAY 2 SPRAY NASAL ×2 (09:35→20:42)
[2023-11-28] MEDS: Arthritis Pain Compound 60 CLICK TUBE TOPICAL ×2 (09:36→20:54)
[2023-11-28] MEDS: Lansoprazole 15 MG Capsule.DR GT ×2 (09:36→21:18)
[2023-11-28] MEDS: Acetaminophen 650 MG/20 ML UDC GT ×2 (09:41→18:13)
[2023-11-28 12:47] VITALS: BMI 24.8
[2023-11-28] MEDS: Senna/Docusate Sodium 1 Tablet 2 TABLET GT (14:59)
--- NOTE | 2023-11-28 15:28 | NURSING ---
Spouse completed tube feeding this shift.
[2023-11-28 19:44] VITALS: BP 123/78; PULSE 84; RESP 16; TEMP 37.3; O2SAT 94
[2023-11-28 21:00] VITALS: PULSE 84; RESP 16; O2SAT 94; BMI 24.8
[2023-11-28] MEDS: Mirtazapine 15 MG Tablet GT (21:18)
[2023-11-28] MEDS: Zolpidem Tartrate 5 MG Tablet 10 MG PO (21:18)
[2023-11-28] MEDS: Atorvastatin Calcium 80 MG Tablet GT (21:18)
[2023-11-29] VITALS (8 sets, daily range): BP systolic 123–138; BP diastolic 73–85; PULSE 56–76; RESP 16–18; TEMP 36.8–37.4; O2SAT 92–98; BMI 24.8
[2023-11-29] MEDS: Metoclopramide 10 MG/10 ML UDC 5 MG GT ×2 (05:14→21:47)
[2023-11-29] MEDS: Enoxaparin 40 MG/0.4 ML Syringe SC (05:15)
[2023-11-29] MEDS: Jevity 1.5. 1,000 ML Bottle 360 ML GT ×5 (05:22→21:48)
[2023-11-29] MEDS: Menthol/Lanolin/Calamine/Znox 113 GM Tube 1 APPLIC TOPICAL ×2 (05:22→21:49)
[2023-11-29] MEDS: Arthritis Pain Compound 60 CLICK TUBE TOPICAL ×2 (10:36→21:48)
[2023-11-29] MEDS: Aspirin 81 MG TAB.CHEW GT (10:37)
[2023-11-29] MEDS: Ipratropium Bromide 0.06% NASAL SPRAY 2 SPRAY NASAL ×2 (10:37→21:48)
[2023-11-29] MEDS: Lansoprazole 15 MG Capsule.DR GT ×2 (10:46→21:47)
--- NOTE | 2023-11-29 12:28 | PN_ITS ---
Subjective Subjective Afebrile VSS Maintaining appropriate oxygen saturation on RA Remains n.p.o. for severe dysphagia. Discussed with nursing - no problems that need addressed. He occasionally removes the CPAP at night however nursing puts it back on when he leaves it there. Reviewed the PT/OT/ST notes Medication list reviewed. Denies chest pain, shortness of breath, nausea/vomiting/heartburn/abdominal pain, suprapubic pain, calf pain and cephalgia. He is having some pain in the R neck posteriorly and in the R trapezius muscle. Objective Data Objective Data Vital Signs: Vital Signs Temp Pulse Resp BP Pulse Ox O2 Del Method O2 Flow Rate 98.3 F 74 18 138/85 H 92 Room Air 2 11/29/23 09:48 11/29/23 09:48 11/29/23 09:48 11/29/23 09:48 11/29/23 09:48 11/29/23 09:48 11/29/23 08:08 FiO2 97 11/18/23 21:45 Oxygen Flow Rate (L/min) 2 Oxygen Delivery Method Room Air Weight: 188 lb 4.396 oz Body Mass Index (BMI) 24.8 Intake & Output: Intake and Output for Last 24 Hours 11/27/23 11/28/23 11/29/23 23:59 23:59 23:59 Intake Total 2180 / 2180 2420 / 2420 760 / 760 Output Total 525 / 525 700 / 700 400 / 400 Balance 1655 / 1655 1720 / 1720 360 / 360 Lab / Micro Data 11/25/23 05:35 11/25/23 05:35 Micro: Microbiology 11/15/23 18:10 Stool Stool Occult Blood (JACOBO) - Final Occult Blood Positive Physical Exam Const Constitutional Narrative: More alert than he has been so far. He is able to speak some words now with some dysarthria and I can understand him. Still has slow response to questions. He attempts to write but, for the most part it is unintelligible to me. He is calm when we are talking with no agitation. Never refuses therapy. General Appearance: cooperative Neck Neck Narrative: The neck muscles are weak and he has some difficulty at the end of the day holding his chin up. There is tightness/spasm of the L trapezius and it is tender to deep palpation. No rigidity. General: trachea midline Resp normal respiratory effort Resp Narrative: CTA after suctioning his mouth...... Effort and Inspection: Negative for tachypneic, respiratory distress, labored or uses accessory muscles Cardio regular rate, regular rhythm, no murmurs and no gallops GI normal to inspection, nondistended, normoactive bowel sounds, soft to palpation and non-tender GI Narrative: No redness around the PEG insertion site and no discharge. No guarding with pa lpation in the area immediately surrounding the PEG tube. Extremity no clubbing, cyanosis or edema and no calf tenderness Skin Rashes: no rashes Neuro Neuro Narrative: Left facial droop is improving. Getting stronger. Able to speak words and occasional short phrase. Still with slow thought processing but, doing better with speech. 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 (5) Aphasia complicating stroke: (6) Dysphagia: QUALIFIERS: Dysphagia type: oropharyngeal phase Qualified Code(s): R13.12 - Dysphagia, oropharyngeal phase (7) Presence of externally removable percutaneous endoscopic gastrostomy (PEG) tube: (8) Intractable singultus: (9) Facial droop due to acute stroke: (10) Aspiration pneumonia: QUALIFIERS: Aspiration pneumonia type: due to gastric secretions Laterality: right Lung location: upper lobe of lung Qualified Code(s): J69.0 - Pneumonitis due to inhalation of food and vomit (11) Urinary incontinence as sequela of cerebrovascular accident (CVA): (12) GERD (gastroesophageal reflux disease): QUALIFIERS: Esophagitis presence: esophagitis presence not specified Qualified Code(s): K21.9 - Gastro-esophageal reflux disease without esophagitis (13) Hyperlipidemia: QUALIFIERS: Hyperlipidemia type: pure hypercholesterolemia Qualified Code(s): E78.00 - Pure hypercholesterolemia, unspecified (14) Hypertension: QUALIFIERS: Hypertension type: primary hypertension Qualified Code(s): I10 - Essential (primary) hypertension (15) Grade I diastolic dysfunction: (16) Anemia: QUALIFIERS: Anemia type: other cause Other causes of anemia: other cause, not classified Qualified Code(s): D64.89 - Other specified anemias (17) Thrush, oral: (18) Apnea for greater than 15 seconds: (19) Mehran-Solorzano respiration: (20) RANDELL (obstructive sleep apnea): (21) Beckham catheter present: (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 He has less oral secretions as well. PLAN: Plan 1. Continue therapy 2. No changes to the drug regimen today. 3. ST following DC is not going to be covered by his insurance. Will plan on a peer to peer if insurance cuts him. He is making good progress and he is only 43 with the family to support and needs to be functional and employed going forward. We have to give him every chance that we can 4. Increase the arthritis cream to the posterior neck and bilateral trapezius ridges for muscle spasm and pain. Capacity Legal E Business Project Manager Reflex Medical hold order details:: IF a medical hold is selected below, a suggested order for a MEDICAL HOLD will reflex upon signing the document. Next of kin: [place] law dictates a PRIORITY LIST for identifying legal decision-maker/legal next of kin in the following order (LNOK): 1st: The patient?s legal guardian, if any 2nd: The patient's spouse (if status is questionable, consult Risk Management) 3rd: The patient?s adult child(dot) (majority, if multiple children) 4th: The patient?s parents 5th: The patient?s adult siblings (majority, if multiple children siblings) Charges/Coding Visit Charges Inpatient E&M: 04822 Subs Hosp L2
[2023-11-29] MEDS: Zolpidem Tartrate 5 MG Tablet 10 MG PO (21:47)
[2023-11-29] MEDS: Mirtazapine 15 MG Tablet GT (21:47)
[2023-11-29] MEDS: Atorvastatin Calcium 80 MG Tablet GT (21:47)
[2023-11-29] MEDS: Acetaminophen 650 MG/20 ML UDC GT (22:16)
[2023-11-30 00:09] VITALS: PULSE 59; RESP 18; O2SAT 95
[2023-11-30] MEDS: Metoclopramide 10 MG/10 ML UDC 5 MG GT (04:22)
[2023-11-30] MEDS: Jevity 1.5. 1,000 ML Bottle 360 ML GT ×5 (06:51→21:19)
[2023-11-30 07:15] VITALS: O2SAT 95
[2023-11-30] MEDS: Enoxaparin 40 MG/0.4 ML Syringe SC (07:16)
[2023-11-30 07:41] VITALS: BP 107/70; PULSE 57; RESP 16; TEMP 36.2; O2SAT 95
--- NOTE | 2023-11-30 08:27 | CPS ---
patient refused vest therapy at this time
[2023-11-30] MEDS: Lansoprazole 15 MG Capsule.DR GT ×2 (10:06→21:18)
[2023-11-30] MEDS: Ipratropium Bromide 0.06% NASAL SPRAY 2 SPRAY NASAL ×2 (10:06→21:19)
[2023-11-30] MEDS: Arthritis Pain Compound 60 CLICK TUBE TOPICAL ×2 (10:06→22:56)
[2023-11-30] MEDS: Aspirin 81 MG TAB.CHEW GT (10:06)
[2023-11-30 13:03] VITALS: BMI 24.8
[2023-11-30] MEDS: Haloperidol Lactate 5 MG/ML Vial 2 MG IM (15:27)
--- NOTE | 2023-11-30 16:06 | NURSING ---
pt's had long conversation with Dr Jay in guards to her concerns with the pt's cell phone addiction. the pt's requests that staff limit pt's cell phone use. Dr Jay aggress that the pt should limit cell phone use so that he does not get over stimulated and so that he will get rest in between therapy. Dr Jay instructed the not to get pt is cell phone today because she may have a hard time getting it back from him. When this nurse did her rounds it was noted that the pt's gave him his cell phone. When his attempted to take his phone prior to leaving the pt became agitated. Dr Jay made aware and 2mg Haldol was ordered. Haldol giving and effective.
--- NOTE | 2023-11-30 16:46 | PCM.PROGNOTE ---
Subjective Subjective Afebrile VSS Maintaining appropriate oxygen saturation on RA Oral intake -remains n.p.o. due to severe dysphagia Discussed with nursing - no problems that need addressed. He is being compliant with CPAP now. Reviewed the PT/OT/ST notes Medication list reviewed. Beverly wanted to speak with me today about some changes she has noticed recently with Casey. She tells me that he is seeing people in the corner looking at him and he is getting paranoid........He told his he did not think it was right that the ST was reading Beverly's papers that were in her purse. No one else has noticed this behavior with Casey. She also tells me that he wants his cell phone and that he spends hours a day on his phone at baseline. Will have to do some investigation into this. We discussed not allowing him to have the phone while on rehab because he may get agitated if we try to take it away to do therapy. She then entered his room and gave him his cell phone and when she tried to take it away he would not give it to her. She said he was agitated.......I went into the room and talked with Casey and he was not agitated but, he would not initially relinquish the phone. I went back after Beverly left and he was holding the phone. I explained that I want him to do as good as he can while in rehab so that he has every chance possible to be functional going forward so I need him to focus all his attention on therapy and not on his phone. He said he understood and gave me his phone, no drama and no agitation. I told him nursing would allow him to have the phone for 15 minutes twice a day when he is not doing therapy and he seemed fine with this. Objective Data Objective Data Vital Signs: Vital Signs Temp Pulse Resp BP Pulse Ox O2 Del Method O2 Flow Rate 97.1 F L 57 L 16 107/70 95 Nasal Cannula 3 11/30/23 07:41 11/30/23 07:41 11/30/23 07:41 11/30/23 07:41 11/30/23 07:41 11/30/23 07:41 11/30/23 07:41 FiO2 97 11/18/23 21:45 Oxygen Flow Rate (L/min) 3 Oxygen Delivery Method Nasal Cannula Weight: 188 lb 4.396 oz Body Mass Index (BMI) 24.8 Intake & Output: Intake and Output for Last 24 Hours 11/28/23 11/29/23 11/30/23 23:59 23:59 23:59 Intake Total 2420 / 2420 2120 / 2120 795 / 795 Output Total 700 / 700 900 / 900 600 / 600 Balance 1720 / 1720 1220 / 1220 195 / 195 Lab / Micro Data 12/06/23 05:31 12/06/23 05:31 Micro: Microbiology 11/15/23 18:10 Stool Stool Occult Blood (JACOBO) - Final Occult Blood Positive Physical Exam Const alert and no apparent distress General Appearance: cooperative Resp clear to auscultation bilaterally Cardio regular rate GI normal to inspection, nondistended, normoactive bowel sounds, soft to palpation and non-tender Extremity General Extremity: Negative for cyanosis or edema Skin General Skin Exam: no breakdown Rashes: no rashes Wound Narrative: The PEG site has no erythema or purulent discharge. He has no guarding with palpation in the area immediately around the PEG tube. Psych Attitude: No agitated Assessment & Plan Assessment/Plan (1) Debility: PLAN: DC home with [facility]. PT/OT/ST/RN. 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 (7) Presence of externally removable percutaneous endoscopic gastrostomy (PEG) tube: (8) Intractable singultus: PLAN: Resolved (9) Facial droop due to acute stroke: (10) Aspiration pneumonia: QUALIFIERS: Aspiration pneumonia type: due to gastric secretions Laterality: right Lung location: upper lobe of lung Qualified Code(s): J69.0 - Pneumonitis due to inhalation of food and vomit PLAN: Resolved (11) Urinary incontinence as sequela of cerebrovascular accident (CVA): (12) GERD (gastroesophageal reflux disease): QUALIFIERS: Esophagitis presence: esophagitis presence not specified Qualified Code(s): K21.9 - Gastro-esophageal reflux disease without esophagitis (13) Hyperlipidemia: QUALIFIERS: Hyperlipidemia type: pure hypercholesterolemia Qualified Code(s): E78.00 - Pure hypercholesterolemia, unspecified (14) Hypertension: QUALIFIERS: Hypertension type: primary hypertension Qualified Code(s): I10 - Essential (primary) hypertension (15) Grade I diastolic dysfunction: (16) Anemia: QUALIFIERS: Anemia type: other cause Other causes of anemia: other cause, not classified Qualified Code(s): D64.89 - Other specified anemias (17) Thrush, oral: (18) Apnea for greater than 15 seconds: (19) Mehran-Solorzano respiration: (20) RANDELL (obstructive sleep apnea): (21) Beckham catheter present: PLAN: Removed several days prior to DC. 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 1 dose of IM Haldol was ordered because Beverly said he was agitated and getting aggressive...... He is resting comfortably now and he gave me the phone almost immediately after he had the injection so I do not think it was the Haldol that made him 2. Continue therapy 3. ? the Hallucinations........this has NOT been observed by any of the staff. Capacity Legal Digital Associate Media Director Reflex Medical hold order details:: IF a medical hold is selected below, a suggested order for a MEDICAL HOLD will reflex upon signing the document. Next of kin: [place] law dictates a PRIORITY LIST for identifying legal decision-maker/legal next of kin in the following order (LNOK): 1st: The patient?s legal guardian, if any 2nd: The patient's spouse (if status is questionable, consult Risk Management) 3rd: The patient?s adult child(dot) (majority, if multiple children) 4th: The patient?s parents 5th: The patient?s adult siblings (majority, if multiple children siblings) Charges/Coding Visit Charges Inpatient E&M: 94555 Subs Hosp L2
[2023-11-30 19:28] VITALS: BP 129/71; PULSE 66; RESP 18; TEMP 36.6; O2SAT 96
[2023-11-30] MEDS: Atorvastatin Calcium 80 MG Tablet GT (21:18)
[2023-11-30] MEDS: Zolpidem Tartrate 5 MG Tablet 10 MG PO (21:20)
[2023-11-30] MEDS: Menthol/Lanolin/Calamine/Znox 113 GM Tube 1 APPLIC TOPICAL (21:36)
[2023-11-30 21:49] VITALS: BMI 24.8
[2023-11-30 22:00] VITALS: PULSE 69; RESP 18; O2SAT 96
[2023-12-01] MEDS: Arthritis Pain Compound 60 CLICK TUBE TOPICAL ×3 (05:13→21:16)
[2023-12-01] MEDS: Enoxaparin 40 MG/0.4 ML Syringe SC (05:13)
[2023-12-01] MEDS: Menthol/Lanolin/Calamine/Znox 113 GM Tube 1 APPLIC TOPICAL ×2 (05:14→21:22)
[2023-12-01] MEDS: Jevity 1.5. 1,000 ML Bottle 360 ML GT ×5 (05:15→21:16)
[2023-12-01 07:30] VITALS: BP 102/63; PULSE 61; RESP 16; TEMP 36.6; O2SAT 94
[2023-12-01 09:29] VITALS: O2SAT 97
[2023-12-01] MEDS: Aspirin 81 MG TAB.CHEW GT (10:11)
[2023-12-01] MEDS: Lansoprazole 15 MG Capsule.DR GT ×2 (10:12→21:20)
[2023-12-01] MEDS: Ipratropium Bromide 0.06% NASAL SPRAY 2 SPRAY NASAL ×2 (10:12→21:16)
[2023-12-01 10:36] VITALS: O2SAT 97
--- NOTE | 2023-12-01 12:24 | CASEMGMT ---
Social Work Received update that insurance approved with [employer] 12/06 and continued stay is not guaranteed. SW phoned to update. SW inquired about PCP. stated Dr. Nkechi Jones agreed to follow pt/family. SW also discussed TCU as a transition prior to home, per IDTs recommendations. agreeable if insurance approves, otherwise, pt will DC home. SW referred to TCU and updated [facility] and [employer] on [employer]D. SW will continue to follow for DC planning. DANIEL MckeonW
--- NOTE | 2023-12-01 15:32 | CHAPLAIN ---
Type of Pastoral Visit ___ Initial Visit _x__ Follow-up Visit ___ On-call Visit ___ General Patient Visit ___ Spiritual Assessment ___ Family Conference ___ Bereavement ___ Rapid Response ___ Code Blue ___ Other (describe below) Pastoral Care Referral From ___ Patient _x__ Family ___ Nurse ___ Physician ___ City Attorney ___ Millinery Copyist ___ Other (describe below) Sacrament/Intervention ___ Active listening ___ Anointing ___ Islam ___ Bereavement ___ Communion ___ Marah exploration ___ ___ Life review ___ Prayer ___ Reconciliation ___ Sacrament of Sick _x__ Supportive presence ___ Wedding ___ Other (describe below) Pastoral Comments this assisted living executive director was present in the unit today and saw this patient and his spouse in their room; stopped to say hello and offer presence and support; pt could answer in some garbled words which is an improvement; offered encouraging words and asked for needs or concerns; offered assistance to his spouse; unable to get into a conversation due to limited abilities of patient; however, pt was given hopeful encouragement due to his evident improvements;
[2023-12-01 15:53] VITALS: BMI 24.8
[2023-12-01 19:27] VITALS: BP 120/77; PULSE 85; RESP 16; TEMP 37.2; O2SAT 95
[2023-12-01] MEDS: Zolpidem Tartrate 5 MG Tablet 10 MG PO (21:15)
[2023-12-01] MEDS: Acetaminophen 650 MG/20 ML UDC GT (21:17)
[2023-12-01] MEDS: Atorvastatin Calcium 80 MG Tablet GT (21:20)
[2023-12-01 21:44] VITALS: BMI 24.8
[2023-12-01 22:00] VITALS: PULSE 78; RESP 17; O2SAT 95
[2023-12-02 01:15] VITALS: PULSE 55; RESP 18; O2SAT 96
[2023-12-02] MEDS: Menthol/Lanolin/Calamine/Znox 113 GM Tube 1 APPLIC TOPICAL ×2 (05:06→22:40)
[2023-12-02] MEDS: Arthritis Pain Compound 60 CLICK TUBE TOPICAL ×3 (05:06→22:24)
[2023-12-02] MEDS: Enoxaparin 40 MG/0.4 ML Syringe SC (05:07)
[2023-12-02] MEDS: Jevity 1.5. 1,000 ML Bottle 360 ML GT ×5 (05:07→22:30)
[2023-12-02 07:42] VITALS: O2SAT 93
--- NOTE | 2023-12-02 07:43 | CPS ---
PATIENT ALSO RECIEVED COUGH ASSIST.
[2023-12-02] MEDS: Aspirin 81 MG TAB.CHEW GT (08:55)
[2023-12-02] MEDS: Acetaminophen 650 MG/20 ML UDC GT ×2 (08:55→22:31)
[2023-12-02] MEDS: Lansoprazole 15 MG Capsule.DR GT ×2 (09:27→22:27)
[2023-12-02] MEDS: Ipratropium Bromide 0.06% NASAL SPRAY 2 SPRAY NASAL ×2 (09:27→22:24)
[2023-12-02 10:00] VITALS: BP 124/78; PULSE 78; RESP 15; TEMP 36.8; O2SAT 97
[2023-12-02 11:28] VITALS: BMI 24.8
--- NOTE | 2023-12-02 13:03 | CASEMGMT ---
Social Work IDT met with patient and for Team meeting. Discussed patient's progress in PT/OT/ST/SN. Educated to MMO CM insurance with [employer] 12/06 and continued stay is not guaranteed with each review. Reiterated goal for DC plans. 1 - if LINK KNITTING MACHINE OPERATOR is denied, complete P2P; 2 - if denied, request precert for TCU; 3 - if denied, DC home with DME and HHC. IDT expressed private concerns with ability for to care for pt and Dr requesting APS referral for pt's safety. See Dr notes for further details. SW will continue to follow for DC planning. Karrie Colin, DANIEL WELDING PANTOGRAPH OPERATOR
--- NOTE | 2023-12-02 15:36 | PCM.PROGNOTE ---
Subjective Subjective Casey was seen on team rounds today. His Beverly was present in the room. Afebrile VSS Maintaining appropriate oxygen saturation on RA Remains NPO. No PEG tube residuals following bolus feedings. Discussed with nursing - no problems that need addressed. Has been much more compliant with CPAP and occasionally takes it off at night but when nursing reapplies he leaves it on. Reviewed the PT/OT/ST notes - He is making good progress. He is ambulating with a WW and has picked up his tiago with no loss of balance. He is standby assist. He is able to get more words out now but still only 1 at a time when I am talking with him. Seems to understand much more than he can express. Medication list reviewed. 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 I told her I have no way to predict this. It will depend on how he progresses in ST but, he had a large posterior stroke and speech and swallowing are going to take a long time to improve and he will likely need ST for a long time. I suspect he may never get back to his baseline prior to the stroke. Still with poor safety awareness and poor impulse control. Casey denies cephalgia, lightheadedness, sore throat, chest pain, shortness of breath, nausea/vomiting/abdominal pain, calf tenderness. He is more interactive this week and more alert. Objective Data Objective Data Vital Signs: Vital Signs Temp Pulse Resp BP Pulse Ox O2 Del Method O2 Flow Rate 98.2 F 78 15 124/78 H 97 Room Air 3 12/02/23 10:12/02/23 10:12/02/23 10:12/02/23 10:12/02/23 10:12/02/23 10:12/02/23 08:01 FiO2 97 11/18/23 21:45 Oxygen Flow Rate (L/min) 3 Oxygen Delivery Method Room Air Weight: 188 lb 4.396 oz Body Mass Index (BMI) 24.8 Intake & Output: Intake and Output for Last 24 Hours 11/30/23 12/01/23 12/02/23 23:59 23:59 23:59 Intake Total 2545 / 2545 2150 / 2150 1530 / 1530 Output Total 600 / 600 1050 / 1050 450 / 450 Balance 1945 / 1945 1100 / 1100 1080 / 1080 Lab / Micro Data 12/06/23 05:31 12/06/23 05:31 Micro: Microbiology 11/15/23 18:10 Stool Stool Occult Blood (JACOBO) - Final Occult Blood Positive Physical Exam Const alert and no apparent distress Constitutional Narrative: Better able to hold his head up and look at me when we are speaking. General Appearance: cooperative HEENT Mouth: dry mucous membranes Resp normal respiratory effort and clear to auscultation bilaterally Resp Narrative: continues to suction his mouth as needed. Oral secretions are clear. Lungs are clear after suctioning. stronger cough to bring up secretions. Effort and Inspection: Negative for tachypneic or respiratory distress Cardio regular rate, regular rhythm, no murmurs and no gallops GI normal to inspection, nondistended, normoactive bowel sounds, soft to palpation and non-tender GI Narrative: The PEG site is clean with no erythema around the site and no purulent discharge from the site. Extremity no calf tenderness General Extremity: Negative for edema Skin Rashes: no rashes Wounds: Negative for wounds noted Psych Psych Narrative: He is calm and cooperative. 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 (7) Presence of externally removable percutaneous endoscopic gastrostomy (PEG) tube: (8) Intractable singultus: PLAN: Resolved (9) Facial droop due to acute stroke: (10) Aspiration pneumonia: QUALIFIERS: Aspiration pneumonia type: due to gastric secretions Laterality: right Lung location: upper lobe of lung Qualified Code(s): J69.0 - Pneumonitis due to inhalation of food and vomit PLAN: Resolved (11) Urinary incontinence as sequela of cerebrovascular accident (CVA): (12) GERD (gastroesophageal reflux disease): QUALIFIERS: Esophagitis presence: esophagitis presence not specified Qualified Code(s): K21.9 - Gastro-esophageal reflux disease without esophagitis (13) Hyperlipidemia: QUALIFIERS: Hyperlipidemia type: pure hypercholesterolemia Qualified Code(s): E78.00 - Pure hypercholesterolemia, unspecified (14) Hypertension: QUALIFIERS: Hypertension type: primary hypertension Qualified Code(s): I10 - Essential (primary) hypertension (15) Grade I diastolic dysfunction: (16) Anemia: QUALIFIERS: Anemia type: other cause Other causes of anemia: other cause, not classified Qualified Code(s): D64.89 - Other specified anemias (17) Thrush, oral: (18) Apnea for greater than 15 seconds: (19) Mehran-Solorzano respiration: (20) RANDELL (obstructive sleep apnea): (21) Beckham catheter present: (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 Continue therapy 2. Speech therapy plans a modified barium swallow for later this week 3. His is going to need a lot of assistance from family and friends IF he is to go home following rehab. Capacity Legal Clinical Documentation Manager Reflex Medical hold order details:: IF a medical hold is selected below, a suggested order for a MEDICAL HOLD will reflex upon signing the document. Next of kin: [place] law dictates a PRIORITY LIST for identifying legal decision-maker/legal next of kin in the following order (LNOK): 1st: The patient?s legal guardian, if any 2nd: The patient's spouse (if status is questionable, consult Risk Management) 3rd: The patient?s adult child(dot) (majority, if multiple children) 4th: The patient?s parents 5th: The patient?s adult siblings (majority, if multiple children siblings) Charges/Coding Visit Charges Inpatient E&M: 36762 Subs Hosp L2
[2023-12-02 20:29] VITALS: BP 124/74; PULSE 79; RESP 18; TEMP 37.7; O2SAT 93
[2023-12-02 22:02] VITALS: PULSE 70; RESP 18; O2SAT 96
[2023-12-02] MEDS: Zolpidem Tartrate 5 MG Tablet 10 MG PO (22:24)
[2023-12-02] MEDS: Atorvastatin Calcium 80 MG Tablet GT (22:27)
--- NOTE | 2023-12-02 23:18 | CPS ---
[1900] Pt. didn't want to do the cough assist or chest vest tonight. Pt. breath sounds clear, with upper lobe rhonchi. Pt. not having problems mobilizing secretions at this time. Cough assist taken to [facility], per Dr. Gomez.
[2023-12-03] MEDS: Arthritis Pain Compound 60 CLICK TUBE TOPICAL ×3 (05:16→22:05)
[2023-12-03] MEDS: Menthol/Lanolin/Calamine/Znox 113 GM Tube 1 APPLIC TOPICAL (05:16)
[2023-12-03] MEDS: Jevity 1.5. 1,000 ML Bottle 360 ML GT ×5 (05:17→22:05)
[2023-12-03] MEDS: Enoxaparin 40 MG/0.4 ML Syringe SC (05:34)
[2023-12-03 06:00] VITALS: BMI 24.6
[2023-12-03 06:56] VITALS: O2SAT 96
[2023-12-03 08:03] VITALS: BP 113/60; PULSE 65; RESP 18; TEMP 36.7; O2SAT 93
--- NOTE | 2023-12-03 09:00 | SP.MBSS_ITS ---
Modified Barium Swallow Patient Information Study Date: 12/03/23 Study Time: 09:00 Direct Billable Minutes: 105 Total Minutes procedure & reportin Diagnosis: CVA, oropharyngeal dysphagia Referring Physician: Love Jay Reason for Referral: This patient has participated in +2 weeks of dysphagia intervention on the inpatient rehab unit. Improve saliva management and ability to elicit volitional swallow observed w/ objective assessment of swallow function recommended to determine baseline for swallow efficacy and selection of the appropriate therap eutic interventions/exercises to address the deficits identified for achievement of maximal benefit/outcome from dysphagia services provided. Medical History: This patinet is a 43 y/o male who cracked his neck (he has a habit of this) and then started having R side weakness, R facial droop and dysarthria. He went to the ED at [facility] and at his arrival he was basically nonverbal. Stat noncontrast CT brain showed no acute process. CTA of the head and neck with contrast was normal. The ER consulted teleneurology. NIHSS score was 14 at presentation. He also had diplopia. 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 Thrombolytics were recommended and the patient received intravenous TNK. He was then transferred to [facility] for stroke workup. Following TNK the NIHSS score dropped to 3. Upon arrival at [facility] the NIHSS was 2 for right facial droop and dysarthria. Approximately 4 hours after arriving at [facility] the patient lost consciousness after returning from the restroom. He had generalized stiffness/shaking all extremities, was sonorous and responded only to sternal rub. He was given 4 mg of Ativan however continued to have seizure-like activity for 15 minutes is despite medication. A repeat CT head had a lot of artifact and he was intubated to protect the airway and loaded with Keppra and taken back for another CT head which was negative for bleeding. He was started on propofol for sedation. Approximately 2 hours later he had another seizure lasting 5 minutes and was treated with 4 mg of Ativan and an increase in propofol to 20 mcg/kg/min. An EEG was done later in the day on 10/27/2023 and there were no epileptiform discharges but, there was generalized slowing. Neurology felt the movements were not seizures but represented extensor posturing/triple flexing rather than true seizure. He was extubated on 10/29/23. That night he had increased secretions. CXR showed increased atelectasis in the bases and a new infiltrate in the RUL. He was seen by infectious disease and started on vancomycin and Zosyn initially and then transi tion to ceftriaxone to complete a 5-day course. He had respiratory failure with hypoxemia and was intubated for the second time. He was extubated on 11/06/23. He developed hiccups on 11/07 and was started on Gabapentin and then transitioned to Thorazine and then to Compazine at [facility]. While at [facility] he was seen by PT/OT/ST and acute inpt rehab was recommended at [facility]. He was transferred to the acute inpt rehab unit at [facility] on 11/13/23 for 3 hours of therapy daily to restore function/independence at or near his level prior to the stroke. Additional findings while at [facility]: He is non-verbal but, he understands speech and is able to follow commands. He has no numbness and can hear well. He has diplopia. He is moving all his extremities. EOMI. TC 258, LDL 192, HDL 40 and TRIG 93 Hemoglobin A1c was 5.2. Hyperglycemia was due to acute CVA. Transthoracic echocardiogram showed 65 to 70% EF with stage I diastolic dysfunction. There was no evidence of a right to left shunt with a bubble study. He underwent a diagnostic cerebral angiogram on 11/03/2023 and it showed no flow-limiting left vertebral dissection at V3. He had to remain intubated after the DCA due to respiratory failure. PEG tube was inserted on 11/05/2023. MRI showed multiple infarcts throughout the posterior circulation involving the posterior inferior cerebellar artery territory, bilateral AICA/SCA pontine perforators, artery of Percheron and bilateral posterior cerebral artery insults. There was localized edema without significant mass effect or fourth ventricular compromise. He had no hemorrhagic transformation. PMHx significant for Aspiration pneumonia, GERD (gastroesophageal reflux disease), Hypertension, Marijuana use, Stroke/cerebrovascular accident Current Diet Ordered: NPO w/ PEG Dentition: Natural Teeth Mental Status: Impaired Comment: Patient able to sufficiently comprehend and follow directions for participation in MBSS. Respiratory Status: Oxygenating on Room Air Penetration-Aspiration Scale Penetration-Aspiration Scale: OBJECTIVE ASSESSMENT OF SWALLOW FUNCTION (QUANTITATIVE ? PER TRIAL): PENETRATION / ASPIRATION SCALE (GALVAN): 1 = does not enter airway 2 = enters airway/above vocal folds/ejected 3 = enters airway/above vocal folds/not ejected 4 = enters airway/contacts vocal folds/ejected 5 = enters airway/contacts vocal folds/not ejected 6 = enters airway/below vocal folds/ejected 7 = enters airway/below vocal folds/not ejected despite effort 8 = enters airway/below vocal folds/no effort VIDEOFLOROSCOPIC SCALE SCORE (GALVAN): Grade I = aspiration of material that has penetrated into the laryngeal vestibule, intact cough reflex Grade II = aspiration < 10 % of the bolus, intact cough reflex Grade III = aspiration of < 10 % of the bolus, reduced cough reflex or aspiration of > 10 % of the bolus, intact cough reflex Grade IV = aspiration of > 10 % of the bolus, reduced cough reflex Penetration-Aspiration Scale Score Thin Liquid via teaspoon: Result: 5= enters airways/contacts vocal folds/not ejected Comment: w/ eventual postprandial aspiration, delayed but present cough response; Grade I = aspiration of material that has penetrated into the laryngeal vestibule, i ntact cough reflex Thin Liquid via teaspoon Trial 2: Result: 6= enters airway/below vocal folds/ejected Comment: Grade I = aspiration of material that has penetrated into the laryngeal vestibule, intact cough reflex; cough response was sufficient to expel contrast from the trachea into the laryngeal vestibule, but not able to clear the laryngeal vestibule, likely resulting in re-aspiration of contrast [place] Thick Liquid via teaspoon: Result: 3= enters airways/above vocal folds/not ejected Comment: Grade I = aspiration of material that has penetrated into the laryngeal vestibul e, intact cough reflex Pudding via teaspoon: Result: 1= does not enter airway Comment: unable to transport the bolus from the oral cavity, no penetration of the very minimal amount of bolus that spilled into the pharynx, majority of bolus was removed from the oral cavity w/ yankauer suction Oral Phase Labial Seal: Interlabial escape, no progression to anterior lip Tongue Control During Bolus Hold: Cohesive bolus between tongue to palatal seal Bolus Transport/Lingual Motion: Minimal to no tongue motion Oral Residue: Majority of bolus remaining Pharyngeal Phase Initiation of Pharyngeal Swallow: Bolus head at posterior laryngeal surgace of epiglottis Soft Palate Elevation: No bolus between soft palate and pharyngeal wall Laryngeal Elevation: Partial superior movement thyroid cart/partial apprx aryt- epig petiole Anterior Hyoid Excursion: Partial anterior movement Epiglottic Movement: No inversion Laryngeal Vestibule Closure at Height of Swallow: Incomplete; narrow column of air/contrast in laryngeal vestibule Pharyngeal Stripping Wave: Absent Pharyngoesophageal Segment Opening: Parital distension and partial duration; parital obstruction of flow Tongue Base Retraction: Narrow column of contrast between tongue base & post. pharyngeal wall Pharyngeal Residue: Collection of residue within or on pharyngeal structures Diagnosis/Impression Diagnosis: Severe oropharyngeal dysphagia (R13.12) Impression: * Adequate lingual control for cohesive bolus containment atop the lingual surface without anterior or posterior spillage when cued for oral holding * Severely impaired lingual movement for AP bolus transportation with difficulty clearing all boluses from the oral cavity - liquid transportation was achieved due to gravity assist - unable to successfully transfer thicker viscosity pudding from the oral cavity, requiring use of the yankauer suction to remove the bolus * Multiple attempts to swallow to clear the oral cavity was required for each small teaspoon bolus presented * Liquids spilled over the base of the tongue spilling into the valleculae & spilling into the laryngeal vestibule, making contact with the vocal folds before and during swallow onset * Contrast sitting atop the vocal folds descended below the folds into the trachea as the patient attempted to re-swallow resulting in aspiration * Incomplete anterior hyoid movement and reduced thyroid cartilage elevation appreciated resulting in incomplete laryngeal vestibule closure, partial epiglottic inversion and reduced PES distention * Reduced tongue base retraction and essentially absent pharyngeal contraction/stripping * Pharyngeal residue lined the tongue base, valleculae and aryepiglottic folds to the pyriform sinuses * Contrast entered the airway before and during the swallow, as well as postprandial penetration of pharyngeal residue while attempting to orally transport next presented bolus * High risk for aspiration w/ PO intake Recommendations Diet: NPO Comment: OK to resume modified Schreiber Water Protocol - ice chips one at a time after thorough oral hygiene is completed. Recommend Repeat Modified Barium Swallow: Yes Comment: Recommend repeat MBSS prior to PO trials/diet advancement Need for Skilled Speech Therapy Services: Yes Comment: Intensive dysphagia intervention required to address severe oropharyngeal dysphagia - therapy to address deficits in lingual strength/ROM, swallow onset timing, hyolaryngeal excursion/laryngeal vestibule closure, epiglottic inversion and PES distention. Frequent oral hygiene required. Education Completed: 1. Described result of evaluation. and 2. Pt understands evaluation & agrees with goals and treatment plan. Status Active ST Patient: Active Contact Information [facility] Speech Therapy:: Naheed Larry M.A. [facility] Speech-Language Pathologist [facility] [address] [place] [address] [email or web address] [phone]
[2023-12-03] MEDS: Ipratropium Bromide 0.06% NASAL SPRAY 2 SPRAY NASAL ×2 (09:32→22:07)
[2023-12-03] MEDS: Lansoprazole 15 MG Capsule.DR GT ×2 (09:32→22:16)
[2023-12-03] MEDS: Aspirin 81 MG TAB.CHEW GT (09:32)
[2023-12-03 10:23] VITALS: BMI 24.6
[2023-12-03 19:41] VITALS: BP 141/85; PULSE 97; RESP 18; TEMP 37.7; O2SAT 95
[2023-12-03 21:25] VITALS: PULSE 97; RESP 18; O2SAT 95; BMI 24.6
[2023-12-03] MEDS: Zolpidem Tartrate 5 MG Tablet 10 MG PO (22:10)
[2023-12-03] MEDS: Atorvastatin Calcium 80 MG Tablet GT (22:17)
[2023-12-03] MEDS: Senna/Docusate Sodium 1 Tablet 2 TABLET GT (22:17)
[2023-12-03 23:31] VITALS: PULSE 91; RESP 16; O2SAT 96
[2023-12-04] MEDS: Jevity 1.5. 1,000 ML Bottle 360 ML GT ×5 (07:02→21:47)
[2023-12-04] MEDS: Arthritis Pain Compound 60 CLICK TUBE TOPICAL ×3 (07:02→21:45)
[2023-12-04] MEDS: Enoxaparin 40 MG/0.4 ML Syringe SC (07:03)
[2023-12-04] MEDS: Magnesium Hydroxide 30 ML UDC GT (07:03)
[2023-12-04 08:00] VITALS: BP 124/79; PULSE 76; RESP 16; TEMP 36.4; O2SAT 94
[2023-12-04] MEDS: Ipratropium Bromide 0.06% NASAL SPRAY 2 SPRAY NASAL ×2 (09:42→21:46)
[2023-12-04] MEDS: Lansoprazole 15 MG Capsule.DR GT ×2 (09:42→21:42)
[2023-12-04] MEDS: Aspirin 81 MG TAB.CHEW GT (09:42)
[2023-12-04 12:23] VITALS: BMI 24.6
[2023-12-04 19:52] VITALS: BP 140/80; PULSE 74; RESP 16; TEMP 36.6; O2SAT 94
[2023-12-04] MEDS: Zolpidem Tartrate 5 MG Tablet 10 MG PO (21:42)
[2023-12-04] MEDS: Atorvastatin Calcium 80 MG Tablet GT (21:43)
[2023-12-04] MEDS: Menthol/Lanolin/Calamine/Znox 113 GM Tube 1 APPLIC TOPICAL (21:46)
[2023-12-05 01:40] VITALS: PULSE 90; RESP 16; O2SAT 95
[2023-12-05] MEDS: Jevity 1.5. 1,000 ML Bottle 360 ML GT ×5 (06:30→22:06)
[2023-12-05] MEDS: Enoxaparin 40 MG/0.4 ML Syringe SC (06:30)
[2023-12-05] MEDS: Arthritis Pain Compound 60 CLICK TUBE TOPICAL ×3 (06:31→22:06)
[2023-12-05] MEDS: Menthol/Lanolin/Calamine/Znox 113 GM Tube 1 APPLIC TOPICAL ×2 (06:31→22:06)
[2023-12-05 07:31] VITALS: O2SAT 93
[2023-12-05 07:35] VITALS: BP 110/73; PULSE 66; RESP 18; TEMP 36.6; O2SAT 95
[2023-12-05] MEDS: Lansoprazole 15 MG Capsule.DR GT ×2 (10:15→22:06)
[2023-12-05] MEDS: Ipratropium Bromide 0.06% NASAL SPRAY 2 SPRAY NASAL ×2 (10:15→22:09)
[2023-12-05] MEDS: Aspirin 81 MG TAB.CHEW GT (10:15)
[2023-12-05 12:10] VITALS: BMI 24.6
--- NOTE | 2023-12-05 13:28 | PCM.PROGNOTE ---
Subjective Subjective Afebrile VSS-blood pressure is well-controlled. Maintaining appropriate oxygen saturation on RA Oral intake - remains NPO. I&O is not accurate. weight is stable. Discussed with nursing - no problems that need addressed. He is wearing CPAP and night and he is sleeping well. Reviewed the PT/OT/ST notes. I reviewed the results of the modified barium swallow done Wednesday and it was consistent with severe oropharyngeal dysphagia. Speech therapy recommended he continue n.p.o. but it was okay to resume the Schreiber water protocol. Will need a repeat modified barium swallow study prior to any p.o. trials/diet advancement. Medication list reviewed. Still impulsive with poor safety awareness. Making good progress with PT/OT. He can now complete the tug test and 15.12 seconds with a front wheeled walker at contact-guard assist/min assist for coming to sit for safety. He tends to pop into the chair and does not reach back to stabilize the chair. With a straight cane he required moderate assistance with the tug test and was able to completed in 20.18 seconds. He is able to do two 6 inch steps with 2 handrails at min assist x 2 for safety on steps. He is supervision/set up for upper body dressing and contact-guard assist for lower body dressing. He needs minimal assistance with tub/shower transfer. Casey denies headache, lightheadedness, shortness of breath, cough, chest pain, nausea/vomiting/abdominal pain and calf tenderness. Objective Data Objective Data Vital Signs: Vital Signs Temp Pulse Resp BP Pulse Ox O2 Del Method O2 Flow Rate 97.9 F 66 18 110/73 95 Room Air 2 12/05/23 07:35 12/05/23 07:35 12/05/23 07:35 12/05/23 07:35 12/05/23 07:35 12/05/23 07:35 12/03/23 06:56 FiO2 97 11/18/23 21:45 Oxygen Flow Rate (L/min) 2 Oxygen Delivery Method Room Air Weight: 186 lb 15.232 oz Body Mass Index (BMI) 24.6 Intake & Output: Intake and Output for Last 24 Hours 12/03/23 12/04/23 12/05/23 23:59 23:59 23:59 Intake Total 1920 / 1920 2355 / 2355 1320 / 1320 Output Total 600 / 600 400 / 400 Balance 1920 / 1920 1755 / 1755 920 / 920 Lab / Micro Data 12/06/23 05:31 12/06/23 05:31 Micro: Microbiology 11/15/23 18:10 Stool Stool Occult Blood (JACOBO) - Final Occult Blood Positive Physical Exam Const alert and no apparent distress Constitutional Narrative: Better able to hold his head up and look at me when we are speaking. General Appearance: cooperative HEENT Mouth: dry mucous membranes Resp normal respiratory effort and clear to auscultation bilaterally Resp Narrative: continues to suction his mouth as needed. Oral secretions are clear. Lungs are clear after suctioning. stronger cough to bring up secretions. Effort and Inspection: Negative for tachypneic or respiratory distress Cardio regular rate, regular rhythm, no murmurs and no gallops GI normal to inspection, nondistended, normoactive bowel sounds, soft to palpation and non-tender GI Narrative: The PEG site is clean with no erythema around the site and no purulent discharge from the site. Extremity no calf tenderness General Extremity: Negative for edema Skin Rashes: no rashes Wounds: Negative for wounds noted Psych Psych Narrative: He is calm and cooperative. Assessment & Plan Assessment/Plan (1) Debility: (2) Vertebral artery dissection: (3) Posterior circulation stroke: (4) Diplopia: (5) Aphasia complicating stroke: (6) Dysphagia: QUALIFIERS: Dysphagia type: oropharyngeal phase Qualified Code(s): R13.12 - Dysphagia, oropharyngeal phase (7) Presence of externally removable percutaneous endoscopic gastrostomy (PEG) tube: (8) Intractable singultus: (9) Facial droop due to acute stroke: (10) Aspiration pneumonia: QUALIFIERS: Aspiration pneumonia type: due to gastric secretions Laterality: right Lung location: upper lobe of lung Qualified Code(s): J69.0 - Pneumonitis due to inhalation of food and vomit (11) Urinary incontinence as sequela of cerebrovascular accident (CVA): (12) GERD (gastroesophageal reflux disease): QUALIFIERS: Esophagitis presence: esophagitis presence not specified Qualified Code(s): K21.9 - Gastro-esophageal reflux disease without esophagitis (13) Hyperlipidemia: QUALIFIERS: Hyperlipidemia type: pure hypercholesterolemia Qualified Code(s): E78.00 - Pure hypercholesterolemia, unspecified (14) Hypertension: QUALIFIERS: Hypertension type: primary hypertension Qualified Code(s): I10 - Essential (primary) hypertension (15) Grade I diastolic dysfunction: (16) Anemia: QUALIFIERS: Anemia type: other cause Other causes of anemia: other cause, not classified Qualified Code(s): D64.89 - Other specified anemias (17) Thrush, oral: (18) Apnea for greater than 15 seconds: (19) Mehran-Solorzano respiration: (20) RANDELL (obstructive sleep apnea): (21) Beckham catheter present: (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 Continue therapy 2. PT/OT are going well but the patient continues to have severe oropharyngeal dysphagia. Speech is progressing slowly. He is able to understand what we ask of him and he is able to follow commands. He remains impulsive with poor safety awareness. The plan is for him to go home following acute rehab. He and his have 3 small children and she works at home however, he continues to need supervision and is impulsive. He will need a suction machine at home and home oxygen until he can have a formal sleep study and get CPAP for home. Would like to do the sleep study on the night he discharges and the sleep lab will do their best to accommodate when we have a DC date. He will need to have someone with him through the night of the sleep study and will need his to arrange for this. Has other DME needs as well. 3. I am not sure that his will be able to provide the supervision Casey needs, brett since has has not been compliant with calling the nurses to take him to the BR and she allows him to get up by himself and ambulate to the BR. This has gotten better since the discussion last Wednesday on rounds. With 3 young children and a job I suspect she does not have the time to supervise Casey closely. Do not know if she has family support to pitch in. Will need to nail this down prior to DC. I would like to keep Casey this week and DC home Wednesday so that he will get 5 additional sessions with therapy this week and we can hopefully do the sleep study Wednesday night. This will give his time to secure help at home so that Casey will be safe and arrange for someone to stay with Casey for the sleep study. Will need to continue intensive ST as an OP if he is ever to be able to return to work and resume a diet. Charges/Coding Visit Charges Inpatient E&M: 75676 Subs Hosp L2
[2023-12-05 15:37] VITALS: BP 121/76; PULSE 85; RESP 17; TEMP 36.6; O2SAT 95
[2023-12-05] MEDS: Zolpidem Tartrate 5 MG Tablet 10 MG PO (22:05)
[2023-12-05] MEDS: Atorvastatin Calcium 80 MG Tablet GT (22:06)
[2023-12-05 23:30] VITALS: PULSE 80; RESP 16; O2SAT 98
[2023-12-06] MEDS: Enoxaparin 40 MG/0.4 ML Syringe SC (06:06)
[2023-12-06] MEDS: Arthritis Pain Compound 60 CLICK TUBE TOPICAL ×3 (06:07→20:18)
[2023-12-06] MEDS: Jevity 1.5. 1,000 ML Bottle 360 ML GT ×5 (06:09→21:34)
[2023-12-06 06:11] LABS: Hematocrit 37.1 % (40-54); Hemoglobin 11.8 g/dL (13.0-16.5); Mean Corp Hgb Conc 31.8 g/dL (32-36); Mean Corpuscular Hgb 29.6 pg (27.0-32.0); Mean Corpuscular Volume 93.2 fL (80-94); Mean Platelet Vol. 10.6 fl (6.2-12.0); Platelet Count 298 K/mm3 (150-450); Red Blood Count 3.98 M/mm3 (4.6-6.2); White Blood Count 6.8 K/mm3 (4.4-11.0)
[2023-12-06] MEDS: Menthol/Lanolin/Calamine/Znox 113 GM Tube 1 APPLIC TOPICAL ×2 (06:12→20:24)
[2023-12-06 06:52] LABS: Anion Gap 5 (5-15); BUN 26 mg/dL (7-18); BUN/Creat Ratio 32.7 RATIO (10-20); Chloride 106 mmol/L (98-107); EST Glomerular Filtration Rate 113 mL/min (>60); Est Glom Filt Rate - Afr Amer 136 mL/min (>60); Estimated Creatinine Clearance 134.55 ml/min; Glucose 101 mg/dL (74-106); Potassium 4.4 mmol/L (3.5-5.1); Sodium Level 140 mmol/L (136-145)
[2023-12-06 07:30] VITALS: BP 115/74; PULSE 73; RESP 16; TEMP 37.2; O2SAT 94
[2023-12-06 08:11] VITALS: O2SAT 96
--- NOTE | 2023-12-06 11:21 | PCM.PROGNOTE ---
Subjective Subjective Afebrile VSS Maintaining appropriate oxygen saturation on RA NPO except for Schreiber water. Discussed with nursing - no problems that need addressed Reviewed the PT/OT/ST notes Medication list reviewed. All lab drawn this morning was personally reviewed. White blood cell count is normal at 6.8. Hemoglobin is 11.8, up from 10.7 on 11/25/2023. Platelets are within normal limits. Sodium is 140 and the potassium is stable at 4.4. The BUN is 26 with a creatinine of 0.8, down from 1.09 on 11/14/2023. I suspect the increased BUN/creatinine ratio is due to the amount of protein he is receiving in his diet. Casey denies cephalgia, vertigo, diplopia, lightheadedness, chest pain, shortness of breath, nausea/vomiting/abdominal pain, dysuria and calf tenderness. Objective Data Objective Data Vital Signs: Vital Signs Temp Pulse Resp BP Pulse Ox O2 Del Method O2 Flow Rate 99.0 F 73 16 115/74 94 Room Air 2 12/06/23 07:30 12/06/23 07:30 12/06/23 07:30 12/06/23 07:30 12/06/23 07:30 12/06/23 07:30 12/05/23 23:30 FiO2 97 11/18/23 21:45 Oxygen Flow Rate (L/min) 2 Oxygen Delivery Method Room Air Weight: 186 lb 15.232 oz Body Mass Index (BMI) 24.6 Intake & Output: Intake and Output for Last 24 Hours 12/04/23 12/05/23 12/06/23 23:59 23:59 23:59 Intake Total 2355 / 2355 2440 / 2440 560 / 560 Output Total 600 / 600 400 / 400 Balance 1755 / 1755 2040 / 2040 560 / 560 Lab / Micro Data 12/06/23 05:31 12/06/23 05:31 Labs: Laboratory Results - last 24 hr 12/06/23 05:31: WBC 6.8, RBC 3.98 L, Hgb 11.8 L, Hct 37.1 L, MCV 93.2, MCH 29.6, MCHC 31.8 L, RDW Std Deviation 44.0 H, RDW Coeff of Gunjan 13.0, Plt Count 298, MPV 10.6, Sodium 140, Potassium 4.4, Chloride 106, Carbon Dioxide 29.0, Anion Gap 5, BUN 26 H, Creatinine 0.80, Estim Creat Clear Calc 134.55, Est GFR (MDRD) Af Amer 136, Est GFR (MDRD) Non-Af 113, BUN/Creatinine Ratio 32.7 H, Glucose 101, Calcium 9.0 Micro: Microbiology 11/15/23 18:10 Stool Stool Occult Blood (JACOBO) - Final Occult Blood Positive Physical Exam Const alert Constitutional Narrative: Still minimal verbalization........able to say one word and no phrases for me yet. He is much more alert. He is holding his head up and is much stronger. He is frustrated at not being able to talk. Resp normal respiratory effort and clear to auscultation bilaterally Effort and Inspection: Negative for tachypneic Cardio regular rate, regular rhythm, no murmurs, no rub and no gallops GI normal to inspection, nondistended, normoactive bowel sounds and soft to palpation GI Narrative: The PEG site has no purulent discharge, no surrounding erythema and no odor. No significant residuals following feedings. Good bowel function. Extremity no calf tenderness General Extremity: Negative for edema Skin Rashes: no rashes Psych Appearance: appropriate Attitude: No agitated Activity / Motor Behavior: Negative for restless Assessment & Plan Assessment/Plan (1) Debility: (2) Vertebral artery dissection: (3) Posterior circulation stroke: (4) Diplopia: PLAN: Resolved (5) Aphasia complicating stroke: PLAN: Expressive >> receptive (6) Dysphagia: QUALIFIERS: Dysphagia type: oropharyngeal phase Qualified Code(s): R13.12 - Dysphagia, oropharyngeal phase PLAN: Severe oropharyngeal dysphagia-remains n.p.o. (7) Presence of externally removable percutaneous endoscopic gastrostomy (PEG) tube: (8) Intractable singultus: PLAN: Resolved (9) Facial droop due to acute stroke: (10) Aspiration pneumonia: QUALIFIERS: Aspiration pneumonia type: due to gastric secretions Laterality: right Lung location: upper lobe of lung Qualified Code(s): J69.0 - Pneumonitis due to inhalation of food and vomit PLAN: Resolved (11) Urinary incontinence as sequela of cerebrovascular accident (CVA): (12) GERD (gastroesophageal reflux disease): QUALIFIERS: Esophagitis presence: esophagitis presence not specified Qualified Code(s): K21.9 - Gastro-esophageal reflux disease without esophagitis (13) Hyperlipidemia: QUALIFIERS: Hyperlipidemia type: pure hypercholesterolemia Qualified Code(s): E78.00 - Pure hypercholesterolemia, unspecified (14) Hypertension: QUALIFIERS: Hypertension type: primary hypertension Qualified Code(s): I10 - Essential (primary) hypertension (15) Grade I diastolic dysfunction: (16) Anemia: QUALIFIERS: Anemia type: other cause Other causes of anemia: other cause, not classified Qualified Code(s): D64.89 - Other specified anemias (17) Thrush, oral: (18) Apnea for greater than 15 seconds: (19) Mehran-Solorzano respiration: (20) RANDELL (obstructive sleep apnea): (21) Beckham catheter present: (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 He was cut by insurance today. Will have to DC tomorrow. I think this is a mistake. 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 He has made good progress BUT, if he is ever to return to work and earn a living we should maximize his time in acute rehab as long as he is progressing. He continues to need intensive ST for speech and for swallowing. I think if he discharges home tomorrow he will never meet his full potential for recovery from the stroke. Will request a peer to peer review with his insurance tomorrow. 2. Overnight trending pulse ox tonight on RA - he will need home O2 if he is still desaturating which I think he will since he more likely than not had RANDELL prior to the CVA. 3. Sleep lab will try and schedule a sleep study this week if the overnight trending pulse ox continues to show desaturation events. Charges/Coding Visit Charges Inpatient E&M: 74699 Subs Hosp L2
[2023-12-06] MEDS: Ipratropium Bromide 0.06% NASAL SPRAY 2 SPRAY NASAL ×2 (11:23→20:18)
[2023-12-06] MEDS: Lansoprazole 15 MG Capsule.DR GT ×2 (11:24→20:19)
[2023-12-06] MEDS: Aspirin 81 MG TAB.CHEW GT (11:24)
[2023-12-06 16:06] VITALS: BMI 24.6
--- NOTE | 2023-12-06 17:45 | CASEMGMT ---
Social Work SW received notification that insurance issued LCD 12/06, DC 12/07. Citing pt does not need to remain on RU until sleep study and further clinical information will not be considered , and provided information for P2P with 14 days. RHODA phoned [facility] to update on DC date to begin processing the delivery of needed DME. Acknowledged a new overnight trending pulse ox and correlating script will need completed. RHODA phoned nurse - informed of DC and requested NO for overnight pulse ox. RHODA phoned [facility] with DC date and PT/OT/SN/CANTOR/SW needed, pending insurance coverage. ST will be obtained from private pay ST that was coordinated by insurance company. RHODA notified DR to prepare for P2P. Will follow next business day. DANIEL MckeonW
[2023-12-06] MEDS: Atorvastatin Calcium 80 MG Tablet GT (20:19)
[2023-12-06] MEDS: Zolpidem Tartrate 5 MG Tablet 10 MG PO (20:23)
[2023-12-06 20:25] VITALS: PULSE 80; O2SAT 94
--- NOTE | 2023-12-06 21:04 | CPS ---
pt refused vest at this time-bipap off due to pulse ox trend on tonight-nurse aware
[2023-12-06 22:00] VITALS: BP 121/69; PULSE 76; RESP 18; TEMP 36.7; O2SAT 97
[2023-12-06 23:10] VITALS: BMI 24.6
[2023-12-07] MEDS: Arthritis Pain Compound 60 CLICK TUBE TOPICAL ×2 (05:41→13:42)
[2023-12-07] MEDS: Enoxaparin 40 MG/0.4 ML Syringe SC (05:42)
[2023-12-07] MEDS: Menthol/Lanolin/Calamine/Znox 113 GM Tube 1 APPLIC TOPICAL (05:43)
[2023-12-07] MEDS: Jevity 1.5. 1,000 ML Bottle 360 ML GT ×3 (05:45→13:42)
[2023-12-07 07:46] VITALS: BP 118/75; PULSE 74; RESP 18; TEMP 36.6; O2SAT 98
[2023-12-07] MEDS: Ipratropium Bromide 0.06% NASAL SPRAY 2 SPRAY NASAL (10:09)
[2023-12-07] MEDS: Aspirin 81 MG TAB.CHEW GT (10:09)
[2023-12-07] MEDS: Lansoprazole 15 MG Capsule.DR GT (10:10)
--- NOTE | 2023-12-07 10:50 | DCINST_ITS ---
Discharge Instructions Diet Discharge Diet: - (Jevity 1.5 -360 cc 5 times daily via the PEG tube. NOTHING by mouth. 100 cc water flush before and after each PEG feeding. ) Activity Discharge Activity: May Not Drive, May Shower (with supervision. ), Use Walker (May use a straight cane in the house but, ONLY with someone supervising and with a hand on him. In all other instances he should continue to use the wheeled walker for ambulation. ) and - Weight Bearing Status: Full weight bearing Dressing / Incision Call your doctor if you observe: Fever of 101 or Higher, Inability to urinate, Inability to have a bowel movement, Shortness of breath, Dizziness, Fainting spells, Chest pain, Prolonged hiccupping, Increased palpitations (irregular heartbeat), Calf discomfort and Uncontrolled pain Cleanse incision/area with: Soap & Water (the area around the PEG tube. ) Follow Up Care Please Follow Up With: Nkechi Jones MD When: JÚNIOR so he can start [facility] Test Results: Test results from this visit will be discussed in further detail at your follow- up appointment, if applicable. Pending Tests Upon Discharge: none Discharge Plan Admission Admit Date/Time: 11/13/23 14:40 Primary Reason for Your Visit: Post stroke debility. Attending Provider: Love Jay Primary Care Provider: Care Physician,Aline Primary Instructions Patient Instructions: Gastrostomy Feeding Tube Care ..., Bolus Tube Feeding Additional Instructions / Restrictions: 1. You will not be having therapy every day at home. BUT, you need to keep doing your exercises EVERY day. Schedule a time every day when Beverly can assist you with your daily exercises. 2. Do not lie down for at least 30 minutes after a tube feed........this minimizes the chance of refluxing. Elevate the head of the bed to at lest 30 degrees when you are sleeping to minimize risk of aspirating oral secretions. 3. Symptoms of Pneumonia include, change in the color of the secretions you are suctioning from your mouth, fever, shaking chills, change in cough, shortness of breath, increased respiratory rate, change in mental status. 4. You should NOT walk with a cane unless Beverly or someone else is walking with you with a hand on you in case you lose your balance. You should be using the wheeled walker to ambulate until the home physical therapist says you are safe to walk with a cane. 5. Following the overnight sleep study you will have a follow up qppt with the lung specialist to discuss treatment for suspected sleep apnea. ' 6. You are taking an antidepressant called Remeron ( also called Mirtazapine). You take this prior to going to bed at night. You have been sleeping much better since this was added to your drug regimen. I recommend you continue this medication for at least 6 months and then IF you think you do not need it any longer you can discuss with Dr. Jones. You can not suddenly stop this drug or you will have withdrawal symptoms. It must be tapered off. You had a major stroke and you have continued severe deficits with speech and swallowing. You have a long therapy road ahead of you. If you have untreated depression you will lose motivation to do therapy and you will not recover to the best functional level you possibly could. 7. You have an appt with Dr. Nkechi Jones on this coming Wednesday. She will need to sign off on your Home Health Care plan prior to Home Health starting. 8. Do things that you enjoy doing help keep yourself busy during the day. If you are not able to do the things you have done in the past to relax and have fun........look for things you can do that interest you. Stimulating your brain with reading the newspaper, playing card games and board games with your kids, doing crossword puzzles and word searches all help to stimulate/exercise the brain. It is easy to get frustrated with not being able to do the things you used to do......keep at it. The brain makes new nerve pathways to conduct information around the areas that were damaged by the stroke. This takes time and it never happens quickly after a stroke. You had a posterior stroke and the problems we routinely see are trouble maintaining balance, trouble swallowing and trouble getting your mouth and the muscles in your throat to do what you want them to do to form words. Trouble with vision and hiccups is also common but, fortunately this has gone away. 9. I know getting back to work is a concern for you........your only job now is doing therapy, even when you are not in a formal therapy session so that you someday will get back to a functional job. Focus on 1 day at a time and do not try and predict what will be happening in the next 6 months. 10. Your BP's have been good on no medication to control it. No need to be on a BP pill at this time. You are taking a medication called Atorvastatin (also called Lipitor). This drug controls cholesterol. Dr. Jones will want to check a lipid panel and a liver panel in 1-2 weeks to make sure the cholesterol is well controlled and your liver is good. 11. I would recommended NOT taking an antihistamine for allergies. Can cause drowsiness, confusion and dry up your sputum making it more difficult to cough up......can lead to plugs of mucous in the lungs. We have you on a nasal spray called Atrovent nasal spray and you use 2 squirts each nostril twice a day. This works locally in the nose to control congestion and runny nose and has very few systemic effects. 12. It has been a pleasure meeting you Casey and seeing how far you have come in just a short time. If you or Beverly have any questions after you leave rehab please fo not hesitate to call me. Office: [phone] Front rehab desk: [phone] Discharge Orders/Prescriptions Prescriptions: New ipratropium bromide 42 mcg (0.06 %) [place],Non-Aerosol 2 spray NASAL BID Qty: 1 0RF acetaminophen 650 mg/20.3 mL Solution 650 mg G-tube Q6H PRN PRN (Reason: PAIN 1-10) Qty: 1 0RF lansoprazole 15 mg Capsule,Delayed Release(Dr/Ec) 15 mg G-tube BID Qty: 60 0RF zolpidem 5 mg Tablet 5 mg PO 2100 Qty: 14 0RF mirtazapine 15 mg Tablet 15 mg G-tube QHS Qty: 30 0RF Jevity 1.5 Rick 0.06 gram-1.5 kcal/mL Liquid 360 ml G-tube 5X/DAY Qty: 0 0RF Continued aspirin [Aspirin Childrens] 81 mg tablet,chewable 1 tab feeding tube DAILY atorvastatin 80 mg tablet 80 mg feeding tube QHS Qty: 30 0RF Discontinued chlorpromazine 10 mg tablet 5 mg feeding tube Q6H Referrals / Follow Up: neurologist, [facility] [Other] (f/u with your scheduled neurologist appointment ) Nkechi Jones MD [Med Staff - [employer]igator] - 12/10/23 3:20 pm Disposition Disposition (needs filled in before D/C Order can be placed): Home Health Service
[2023-12-07 11:31] VITALS: BMI 24.6
--- NOTE | 2023-12-07 11:33 | NURSING ---
states that she has been shown how to do peg tube feedings and medications and that she does not need further education.
--- NOTE | 2023-12-07 11:51 | CASEMGMT ---
Addendum entered by Karrie Colin 12/07/23 12:21: Correction: Pt did NOT show need for O2 on pulse ox testing. Original Note: Social Work SW messaged [facility] via [employer] to update on DC date. [facility] requested updated progress notes and delivery can be completed this date. SW notified by Dr. Jay that overnight pulse ox did show need for night O2. pt to proceed with sleep study 12/09. SW updated [employer] to remove from order. SW received call from [facility] updating insurance does not cover SW, and pt does not show a need for CANTOR. Pt needs established with PCP at appt prior to official acceptance and SOC scheduled by [facility]. SW expressed understanding and informed pt's appt is 12/10 at 3:30 PM. [facility] to follow up after appt. Plan: DC home 12/08 with , [facility] PT/OT/SN - pending PCP appt, hospital bed, FWW, BSC, suction machine. Karrie Colin, DANIEL [employer]NAGER
--- NOTE | 2023-12-07 12:13 | EX.DISCHREH ---
Providers Date of Admission: 11/13/23 Date of Discharge: 12/07/23 Primary Care Physician: Dr. Nkechi Jones Reason For Visit: STROKE Diagnosis Discharge Diagnosis (1) Debility: Status: Acute Code(s): R53.81 - Other malaise Plan: DC home with [facility]. PT/OT/ST/RN. (2) Vertebral artery dissection: Status: Acute Code(s): I77.74 - Dissection of vertebral artery (3) Posterior circulation stroke: Status: Acute Code(s): I63.50 - Cerebral infarction due to unspecified occlusion or stenosis of unspecified cerebral artery (4) Diplopia: Status: Resolved Code(s): H53.2 - Diplopia Plan: Resolved (5) Aphasia complicating stroke: Status: Acute Plan: Expressive >> receptive (6) Dysphagia: Status: Acute Code(s): R13.10 - Dysphagia, unspecified Qualifiers: Dysphagia type: oropharyngeal phase Qualified Code(s): R13.12 - Dysphagia, oropharyngeal phase Plan: Severe oropharyngeal dysphagia-remains n.p.o. (7) Presence of externally removable percutaneous endoscopic gastrostomy (PEG) tube: Status: Acute Code(s): Z93.1 - Gastrostomy status (8) Intractable singultus: Status: Resolved Code(s): R06.6 - Hiccough Plan: Resolved (9) Facial droop due to acute stroke: Status: Acute Code(s): I63.9 - Cerebral infarction, unspecified; R29.810 - Facial weakness (10) Aspiration pneumonia: Status: Resolved Code(s): J69.0 - Pneumonitis due to inhalation of food and vomit Qualifiers: Aspiration pneumonia type: due to gastric secretions Laterality: right Lung location: upper lobe of lung Qualified Code(s): J69.0 - Pneumonitis due to inhalation of food and vomit Plan: Resolved (11) Urinary incontinence as sequela of cerebrovascular accident (CVA): Status: Resolved Code(s): I69.398 - Other sequelae of cerebral infarction; R32 - Unspecified urinary incontinence (12) GERD (gastroesophageal reflux disease): Status: Chronic Code(s): K21.9 - Gastro-esophageal reflux disease without esophagitis Qualifiers: Esophagitis presence: esophagitis presence not specified Qualified Code(s): K21.9 - Gastro-esophageal reflux disease without esophagitis (13) Hyperlipidemia: Status: Chronic Code(s): E78.5 - Hyperlipidemia, unspecified Qualifiers: Hyperlipidemia type: pure hypercholesterolemia Qualified Code(s): E78.00 - Pure hypercholesterolemia, unspecified (14) Hypertension: Status: Chronic Code(s): I10 - Essential (primary) hypertension Qualifiers: Hypertension type: primary hypertension Qualified Code(s): I10 - Essential (primary) hypertension Plan: Not requiring an antihypertensive at DC from rehab. Will need to monitor the BP closely going forward to make sure it does not increase after going home. The transthoracic echocardiogram showed diastolic dysfunction stage I which is usually consistent with hypertension. I suspect when he is working his stress level is higher and I expect the stress may go up with going home. Will suggest they purchase a BP cuff and monitor the BP at different times during the day and record. They should bring the BP record with them to appts with Dr. Jones. (15) Grade I diastolic dysfunction: Status: Acute Code(s): I51.89 - Other ill-defined heart diseases (16) Anemia: Status: Acute Code(s): D64.9 - Anemia, unspecified Qualifiers: Anemia type: other cause Other causes of anemia: other cause, not classified Qualified Code(s): D64.89 - Other specified anemias Plan: Stool is positive for heme on 11/15/23. Was not anemic at the time of the stroke so I suspect the anemia is due to acute blood loss, frequent blood draws, GI loss. He was taking a PPI at home for GERD but, he was not a a PPI at presentation to rehab. He is now taking a PPI BID via the PEG. HGB is now 11.8, up from 10.7 on 11/25/23. (17) Thrush, oral: Status: Resolved Code(s): B37.0 - Candidal stomatitis (18) Apnea for greater than 15 seconds: Status: Resolved Code(s): R06.81 - Apnea, not elsewhere classified (19) Mehran-Solorzano respiration: Status: Acute Code(s): R06.3 - Periodic breathing (20) RANDELL (obstructive sleep apnea): Status: Suspected Code(s): G47.33 - Obstructive sleep apnea (adult) (pediatric) Plan: ABNORMAL overnight trending pulse ox with desaturations. Has a stop BANG score of 5. Scheduled for a sleep study at [facility] sleep lab on 12/09/23. (21) Beckham catheter present: Status: Resolved Code(s): Z97.8 - Presence of other specified devices Plan: Removed several days prior to DC. 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 DC home with [facility] 2. Patient requires a hospital bed d/t (choose corresponding phrase: needing frequent changes in position to alleviate pain, prevent ongoing pressure areas, assist in healing of current pressure areas, prevent aspiration or d/t respiratory condition) that is not feasible in an ordinary bed. Related to Dx severe oropharyngeal dysphagia post stroke with PEG feedings and need to keep the HOB elevated to at least 30 degrees at all times. 3. Patient is unsafe to use a cane and requires a walker for ambulation in the home and the community. 4. Patient is unable to access bathroom safely and requires a 3-in-1 commode. 5. Patient requires a suction machine due to copious oral secretions in a patient with severe oropharyngeal dysphagia who is not able to swallow the secretions putting him at high risk for aspiration/pneumonia if he does not have suction available. 6. Follow-up with Dr. Nkechi Jones on 12/10/2023. 7. Sleep study will be done night and Carley and his are aware that someone will need to stay with him while he is in the sleep lab. Medications at Discharge Home Medications aspirin 81 mg chewable tablet (Aspirin Childrens) 1 tab feeding tube DAILY heart 11/13/23 acetaminophen 650 mg/20.3 mL oral solution 650 mg (20.3 mL) G-tube Q6H PRN PRN PAIN 1-10 #1 BOTTLE 12/07/23 atorvastatin 80 mg tablet 80 mg feeding tube QHS cholesterol #30 tabs 12/07/23 ipratropium bromide 42 mcg (0.06 %) nasal spray 2 spray NASAL BID #1 BOTTLE 12/07/23 lactose-reduced food with fiber 0.06 gram-1.5 kcal/mL oral liquid (Jevity 1.5 Rick) 360 ml G-tube 5X/DAY #0 mL 12/07/23 lansoprazole 15 mg capsule,delayed release 15 mg G-tube BID #60 caps 12/07/23 mirtazapine 15 mg tablet 15 mg G-tube QHS #30 tabs 12/07/23 zolpidem 5 mg tablet 5 mg PO 2100 #14 tabs 12/07/23 Hospital Course Operations None Summary of Care Provided Hospital Course: CARLEY HENDERSON, is a 43 M with no significant PMH and on no chronic medications who cracked his neck on 10/26/23 (he has a habit of this) and then started having R side weakness, R facial droop, diplopia and dysarthria. He went to the ED at [facility] and at arrival he was basically nonverbal. Stat noncontrast CT brain showed no acute process. CTA of the head and neck with contrast was normal. The ER consulted teleneurology. NIHSS score was 14 at presentation. 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 Thrombolytics were recommended and the patient received intravenous TNK. He was then transferred to [facility] for stroke workup. Following TNK the NIHSS score dropped to 3. Upon arrival at [facility] the NIHSS was 2 for right facial droop and dysarthria. Approximately 4 hours after arriving at [facility] the patient lost consciousness after returning from the restroom. He had generalized stiffness, was shaking all extremities, was sonorous and responded only to sternal rub. He was given 4 mg of Ativan however continued to have seizure-like activity for 15 minutes despite medication. A repeat CT head had a lot of artifact and he was intubated to protect the airway and loaded with Keppra and taken back for another CT head which was negative for bleeding. He was started on propofol for sedation. Approximately 2 hours later he had another seizure lasting 5 minutes and was treated with 4 mg of Ativan and an increase in propofol to 20 mcg/kg/min. An EEG was done later in the day on 10/27/2023 and there were no epileptiform discharges but, there was generalized slowing. Neurology felt the movements were not seizures but represented extensor posturing/triple flexing rather than true seizure. He was extubated on 10/29/23. That night he had increased secretions. CXR showed increased atelectasis in the bases and a new infiltrate in the RUL. He was seen by infectious disease and started on vancomycin and Zosyn initially and then transition to ceftriaxone to complete a 5-day course. He had respiratory failure with hypoxemia and was intubated for the second time. He was extubated on 11/06/23. He developed hiccups on 11/07 and was started on Gabapentin and then transitioned to Thorazine and then to Compazine at [facility]. While at [facility] he was seen by PT/OT/ST and acute inpt rehab was recommended at [facility]. He was transferred to the acute inpt rehab unit at [facility] on 11/13/23 for 3 hours of therapy daily to restore function/independence at or near his level prior to the stroke. Initially following transfer to rehab Carley was noted to have apneic periods that were longer than 15 seconds with no initiation of breath and no chest movement. He was also having Mehran-Solorzano respirations at times. An overnight trending pulse ox was abnormal with several desaturation events. O2 at 2 LPM was applied any time he was sleeping but, he continued to have decreased LOC throughout the day. He also continued to have prolonged apneic episodes. Respiratory therapy started him on CPAP with a face mask. Carley kept removing the mask and it was ineffective. He at that point was requiring frequent oral suctioning, which he was able to do himself but, not with the face mask in place. He was transitioned to an appliance that only covered his nose and he was able to tolerate this. He became much more alert during the day and progressed very well in therapy. Carley told several staff, including myself, that he was depressed and sad. He was started on [id number] mg at . Mood improved over the next 2 weeks but, he was still having difficulty with staying asleep at night and when he awake he would remove the CPAP. Ambien was added to the drug regimen and prior to [facility] he was sleeping well and keeping the CPAP on at night. We had some difficulties with visitors while Carley was on rehab. Despite being told on numerous occasions by different staff members that he was not to get out of bed without calling nursing for assist. He was on multiple occasions given the walker by friend/family and allowed to ambulate without assist. I have many concerns about Carley going home and being safe at home. He does not have good balance, brett when using a straight cane (rather than a walker) and is at risk for falls. He also has severe oropharyngeal dysphagia and I would not be surprised if someone tries to feed him. Once he was able to tolerate the CPAP he was very alert during the day and motivated to get better and get home. He made excellent progress. Prior to DC he was contact-guard assist for grooming and lower body dressing. He was able to dress his upper body at supervision/set up. He requires only minimal assistance with tub/shower transfer. He is able to complete 9 sit to stands in 30 seconds. He completed the turn up and go test in 15.12 seconds with a front wheeled walker at contact-guard assist/min assist for coming to sit following ambulation because he does not reach back for the chair and tends to plop . Using a straight cane he requires moderate assistance. He was able to ascend/descend two 6 inch steps and three 4 inch steps with 2 handrails at min assist x 2. He has ambulated up to 356 feet with a wheeled walker at min/mod assist. He remains NPO except for Schreiber water given by staff. He is speaking now and he is enunciating much better, I have no difficulty understanding what he is saying. He is able to read short phrases and when I tested naming objects on the day of DC he identified 7/7 objects without any cuing. He is still impulsive and has poor safety awareness and needs / supervision. Carley and his Beverly have 3 children at home ranging in age from 3-10 YOA. Carley was discharged from rehab on 09/06/24 to home with [facility] to be provided by [facility]. He will follow up with Dr. Nkechi Jones on Wednesday12/10/23 for primary care. He has a neurology appt with [facility]. DME at [facility] included a hospital bed, 3 in 1 commode, front wheeled walker and suction machine. He had a repeat overnight trending pulse ox 1 night prior to discharge and had no desaturation events. He is scheduled for an overnight sleep study in the sleep lab at [facility] on , 12/09/2023. He will follow-up with pulmonary medicine following the sleep study to discuss the results and possible need for treatment. Physical Exam Const alert, oriented x3 and no apparent distress Constitutional Narrative: Speaking in phrases now. Suctioning is needed less frequently now because he is able to swallow some of the oral secretions. He holds his head upright for longer periods of time and makes good eye contact when I am speaking with him. General Appearance: cooperative, well kempt and well developed HEENT HEENT Narrative: Some yellow/white coating of the tongue posteriorly with no erythematous lesions and no ulcerations. He denies mouth pain or a bad taste in his mouth. There is no exudate in the posterior pharynx. Mucous membranes are moist. Head and Scalp: normocephalic and atraumatic Nose: no nasal discharge External Ear: external ears normal and other Other Details: Hearing is grossly normal. Eyes PERRL, EOMs intact bilaterally, conjunctivae normal and no scleral icterus Eyes Narrative: No mattering of the eyelashes on either side and no discharge from the eyes. No nystagmus. General Eye: normal appearance of both eyes and normal light reflex Neck supple and No nodes General: trachea midline Chest Chest: symmetrical chest wall rise Resp normal respiratory effort, normal air movement and no use of accessory muscles Resp Narrative: Not tachypneic. Able to speak in short phrases now with much better enunciation. Cardio regular rate, regular rhythm, S1 normal heart sound, S2 normal heart sound, no murmurs, no rub and no gallops Cardio Narrative: No ectopy Jugular Venous Distention: Negative for JVD GI normal to inspection, nondistended, normoactive bowel sounds, soft to palpation and non-tender GI Narrative: The PEG site is clean with no surrounding erythema, no swelling and no purulent discharge or odor. No guarding with palpation. Inspection: Negative for abdominal aortic bruit Narrative: He is no longer retaining urine and Beckham was removed several days ago. Extremity no calf tenderness and no pedal edema Peripheral Pulses: Yes pulses 2+ throughout Skin no rashes or lesions noted and no wounds General Skin Exam: no breakdown and elasticity normal Hair: male pattern alopecia Neuro oriented x3, moves all extremities, no focal motor deficits and no sensory deficits noted Neuro Narrative: Trace L facial droop.....much improved since admission. Speaking in short phrases now. Enunciation is improved significantly. No ataxia. No visual field cuts. No nystagmus. Good/equal strength in all extremities. No extinction. No numbness. loses balance when walking with the SC at times yet. Psych cooperative, affect normal, denies hallucinations and denies suicidal ideation Psych Narrative: He is very motivated to get better. Appearance: grossly normal, appropriate and well kempt Attitude: calm and engaged Activity / Motor Behavior: appropriate eye contact and psychomotor slowing; Negative for psychomotor agitation or fidgetting Mood & Affect: euthymic mood Weight / BMI Weight Weight: 186 lb 15.232 oz Body Mass Index (BMI) 24.6 ABG / Lab / Microbiology Data 12/06/23 05:31 12/06/23 05:31 Microbiology: Microbiology 11/15/23 18:10 Stool Stool Occult Blood (JACOBO) - Final Occult Blood Positive Indicators for Scoring Admitted with or Primary Diagnosis of CVA/Stroke: Yes Hx of CVA/Stroke: Yes Modified [place] Score MRS Score at time of Evaluation: 3-Moderate disability NIHSS NIHSS 1a. Level of Consciousness: Alert; keenly responsive 1b. LOC Questions: Answers BOTH questions correctly. 1c. LOC Commands: Performs both tasks correctly. 2. Best Gaze: Normal 3. Visual: No visual loss 4. Facial Palsy: Minor paralysis (flattened nasolabial fold, asymmetry on smiling) (can not see as many teeth on the Left side when he smiles. ) 5a. Left Arm: No drift; arm holds 90 (or 45) degrees for full 10 seconds 5b. Right Arm: No drift; arm holds 90 (or 45) degrees for full 10 seconds 6a. Left Leg: No drift; leg holds 30-degree position for full 5 seconds 6b. Right Leg: No drift; leg holds 30-degree position for full 5 seconds 7. Limb Ataxia: Absent 8. Sensory: Normal; no sensory loss 9. Best Language: Tuno-dh-gnluchhb aphasia; 10. Dysarthria: Tfsd-ru-zwdvxify dysarthria; 11. Extinction and Inattention: No abnormality Total: 3 Stroke Questions Stroke Team Activated: No D/C Instructions Discharge Diet: - (Jevity 1.5 -360 cc 5 times daily via the PEG tube. NOTHING by mouth. 100 cc water flush before and after each PEG feeding. ) Weight Bearing Status: Full weight bearing Call your doctor if you observe: Fever of 101 or Higher, Inability to urinate, Inability to have a bowel movement, Shortness of breath, Dizziness, Fainting spells, Chest pain, Prolonged hiccupping, Increased palpitations (irregular heartbeat), Calf discomfort and Uncontrolled pain Cleanse incision/area with: Soap & Water (the area around the PEG tube. ) Pending Tests Upon Discharge: none Please Follow Up With: Nkechi Jones MD When: JÚNIOR so he can start [facility] Meaningful Use Info Meaningful Use Diagnoses (Choose all that apply): Ischemic CVA CVA Therapy Assessed for PT,OT and/or ST?: Yes Ischemic Stroke Antithrombotic order at d/c?: Yes Dx of Atrial fib/flutter?: No Anticoagulant at discharge?: No Reason anticoagulant not ordered: Treatment not Indicated Statins at discharge?: Yes Primary Dx Acute Ischemic CVA?: Yes IV thrombolytic ordered during stay?: No Reason IV thrombolytic not ordered: Treatment not Indicated Discharge Plan Admission Admit Date/Time: 11/13/23 14:40 Primary Reason for Your Visit: Post stroke debility. Attending Provider: Love Jay Primary Care Provider: Care Physician,Aline Primary Instructions Patient Instructions: Gastrostomy Feeding Tube Care ..., Bolus Tube Feeding Additional Instructions / Restrictions: 1. You will not be having therapy every day at home. BUT, you need to keep doing your exercises EVERY day. Schedule a time every day when Beverly can assist you with your daily exercises. 2. Do not lie down for at least 30 minutes after a tube feed........this minimizes the chance of refluxing. Elevate the head of the bed to at lest 30 degrees when you are sleeping to minimize risk of aspirating oral secretions. 3. Symptoms of Pneumonia include, change in the color of the secretions you are suctioning from your mouth, fever, shaking chills, change in cough, shortness of breath, increased respiratory rate, change in mental status. 4. You should NOT walk with a cane unless Beverly or someone else is walking with you with a hand on you in case you lose your balance. You should be using the wheeled walker to ambulate until the home physical therapist says you are safe to walk with a cane. 5. Following the overnight sleep study you will have a follow up qppt with the lung specialist to discuss treatment for suspected sleep apnea. ' 6. You are taking an antidepressant called Remeron ( also called Mirtazapine). You take this prior to going to bed at night. You have been sleeping much better since this was added to your drug regimen. I recommend you continue this medication for at least 6 months and then IF you think you do not need it any longer you can discuss with Dr. Jones. You can not suddenly stop this drug or you will have withdrawal symptoms. It must be tapered off. You had a major stroke and you have continued severe deficits with speech and swallowing. You have a long therapy road ahead of you. If you have untreated depression you will lose motivation to do therapy and you will not recover to the best functional level you possibly could. 7. You have an appt with Dr. Nkechi Jones on this coming Wednesday. She will need to sign off on your Home Health Care plan prior to Home Health starting. 8. Do things that you enjoy doing help keep yourself busy during the day. If you are not able to do the things you have done in the past to relax and have fun........look for things you can do that interest you. Stimulating your brain with reading the newspaper, playing card games and board games with your kids, doing crossword puzzles and word searches all help to stimulate/exercise the brain. It is easy to get frustrated with not being able to do the things you used to do......keep at it. The brain makes new nerve pathways to conduct information around the areas that were damaged by the stroke. This takes time and it never happens quickly after a stroke. You had a posterior stroke and the problems we routinely see are trouble maintaining balance, trouble swallowing and trouble getting your mouth and the muscles in your throat to do what you want them to do to form words. Trouble with vision and hiccups is also common but, fortunately this has gone away. 9. I know getting back to work is a concern for you........your only job now is doing therapy, even when you are not in a formal therapy session so that you someday will get back to a functional job. Focus on 1 day at a time and do not try and predict what will be happening in the next 6 months. 10. Your BP's have been good on no medication to control it. No need to be on a BP pill at this time. You are taking a medication called Atorvastatin (also called Lipitor). This drug controls cholesterol. Dr. Jones will want to check a lipid panel and a liver panel in 1-2 weeks to make sure the cholesterol is well controlled and your liver is good. 11. I would recommended NOT taking an antihistamine for allergies. Can cause drowsiness, confusion and dry up your sputum making it more difficult to cough up......can lead to plugs of mucous in the lungs. We have you on a nasal spray called Atrovent nasal spray and you use 2 squirts each nostril twice a day. This works locally in the nose to control congestion and runny nose and has very few systemic effects. 12. It has been a pleasure meeting you Carley and seeing how far you have come in just a short time. If you or Beverly have any questions after you leave rehab please fo not hesitate to call me. Office: [phone] Front rehab desk: [phone] PS: I think it would be a good idea to purchase a BP cuff and take your BP a couple times a day at different times and keep a record. Take the recording to your visit with Dr. Jones. I think you have had high blood pressure for a while because the wall of the heart is a little thick and this usually occurs because the heart (which is a muscle) is having to work harder to get the blood out of the heart into your arteries. AND like any muscle if we work it it gets bigger....not so good if this happens with the heart. Your BP has been good on rehab without medication but, this may change when you get home and your stress level changes. The goal for your BP is to keep it under 130/80. Discharge Orders/Prescriptions Prescriptions: New ipratropium bromide 42 mcg (0.06 %) Iroquois,Non-Aerosol 2 spray NASAL BID Qty: 1 0RF acetaminophen 650 mg/20.3 mL Solution 650 mg G-tube Q6H PRN PRN (Reason: PAIN 1-10) Qty: 1 0RF lansoprazole 15 mg Capsule,Delayed Release(Dr/Ec) 15 mg G-tube BID Qty: 60 0RF zolpidem 5 mg Tablet 5 mg PO 2100 Qty: 14 0RF mirtazapine 15 mg Tablet 15 mg G-tube QHS Qty: 30 0RF Jevity 1.5 Rick 0.06 gram-1.5 kcal/mL Liquid 360 ml G-tube 5X/DAY Qty: 0 0RF Continued aspirin [Aspirin Childrens] 81 mg tablet,chewable 1 tab feeding tube DAILY atorvastatin 80 mg tablet 80 mg feeding tube QHS Qty: 30 0RF Discontinued chlorpromazine 10 mg tablet 5 mg feeding tube Q6H Referrals / Follow Up: neurologist, [facility] [Other] (f/u with your scheduled neurologist appointment ) Nkechi Jones MD [Med Staff - Home Health Clinician] - 12/10/23 3:20 pm Disposition Disposition (needs filled in before D/C Order can be placed): Home Health Service Charges/Coding Visit Charges Inpatient E&M: 61481 Disch Hosp >30min
[2023-12-07 13:46] VITALS: BMI 24.6
[2023-12-07 14:53] VITALS: BP 118/75; PULSE 74; RESP 18; TEMP 36.6; O2SAT 98
--- NOTE | 2023-12-07 14:54 | NURSING ---
discharged home with . discharge instructions, medication and appointments reviewed with pt and . denies questions or concerns
--- NOTE | 2023-12-07 15:00 | CASEMGMT ---
Social Work Spoke with patient's today while patient in therapy. Discussed cut by insurance and need for discharge today. teary eyed, and expressed worry about getting things in place for patiet at home yet today, while also getting home in time to get kids from school. Supportive listening offered and worked to help assure discharge for patient in time for children's school pickup. Updated nutrition note and discharge instructions uploaded into [facility] and sent to [facility] PEG tube supplies. [facility] confirms ability to delivery supplies today, and will call to set up a time. Spoke with Viviana, Director of [facility], and [facility] was able to speak with PCP regarding orders and start of care. Start of care for patient will be tomorrow, 12.08.23. Updated Pamela from [facility] regarding DME delivery for patient. Suction machine and walker delivered to hospital room, and then [facility] will call today to coordinate time for delivery of BSC and hospital bed. Met with patient and to discuss and review plans made. Received call from Avis at [facility], after patient left to confirm phone number. Phone number Avis had was correct. Updated Avis that is expecting call from [facility] today but likely busy right after discharge. This va underwriter let Avis know that a bottle, and another partial bottle of Jevity went home with patient. Confirmed with DEUCE Srinivasan on RU, that a syringe was sent home with too. Updated Avis. Avis reports will continue to try and reach today for delivery, but if not, patient would have enough to last through the evening for a delivery in the morning. No other services requested or indicated. PLAN: Discharge home with support of . [facility] for skilled nurisng, and therapy; [facility] for DME; [facility] for PEG tub supplies. -SEAMUS Arceo
== END 2023-12-07 14:55 | disposition home health service (06) | DRG 56 ==
PROVIDERS: Admitting Provider Internal Medicine; Visit Provider Internal Medicine
DX: I69.320 Aphasia following cerebral infarction (principal); J69.0 Pneumonitis due to inhalation of food and vomit; B37.0 Candidal stomatitis; Z93.1 Gastrostomy status; I69.322 Dysarthria following cerebral infarction; F06.31 Mood disorder due to known physiological condition with depressive features; I10 Essential (primary) hypertension; F32.A Depression, unspecified; K21.9 Gastro-esophageal reflux disease without esophagitis; H53.2 Diplopia; E78.00 Pure hypercholesterolemia, unspecified; F17.290 Nicotine dependence, other tobacco product, uncomplicated; G47.33 Obstructive sleep apnea (adult) (pediatric); I69.392 Facial weakness following cerebral infarction; I69.398 Other sequelae of cerebral infarction; J30.89 Other allergic rhinitis; Z79.82 Long term (current) use of aspirin; Z79.899 Other long term (current) drug therapy; N39.498 Other specified urinary incontinence; Z23 Encounter for immunization
CPT/HCPCS: 36415; 74230; 80048; 80053; 81001; 82274; 83735; 84100; 85027; 92507; 92523; 92526; 92611; 93005; 94003; 94660; 94667; 94668; 94762; 97110; 97112; 97116; 97129; 97130; 97150; 97163; 97167; 97530; 97535; 97802; 97803; G0008; 90686

== ENCOUNTER → 2023-12-09 | Outpatient (CLI) | payer OTHER, SELFPAY | END | disposition home or self-care (01) | LOC: SL 20:12 | PROVIDERS: PCP Family Medicine; Referring Provider Internal Medicine; Visit Provider Internal Medicine | DX: G47.10 Hypersomnia, unspecified (principal) | CPT/HCPCS: 95811 ==

== ENCOUNTER → 2024-01-04 | Outpatient (CLI) | payer OTHER, SELFPAY | END | disposition home or self-care (01) | LOC: SL 10:13 | PROVIDERS: PCP Family Medicine; Referring Provider Family Medicine; Visit Provider Family Medicine | DX: R69 Illness, unspecified (principal) ==

== ENCOUNTER → 2024-02-24 | Outpatient (CLI) | payer OTHER, SELFPAY | END | disposition home or self-care (01) | LOC: SL 12:31 | PROVIDERS: PCP Family Medicine; Referring Provider Family Medicine; Visit Provider Family Medicine | DX: G47.31 Primary central sleep apnea (principal) ==

== ENCOUNTER → 2024-04-20 | Outpatient (CLI) | payer OTHER, SELFPAY ==
[2024-04-20 18:12] LABS: Absolute Lymphocyte Count 2.88 X10^3/uL (0.83-4.51); Absolute Neutrophil Count 3.4 X10^3/uL (2.0-7.7); Basophil# 0.03 X10^3/uL; Basophil% 0.4 % (0-1); Eosinophil# 0.07 X10^3/uL; Hemoglobin 13.7 g/dL (13.0-16.5); Lymphocyte # 2.88 X10^3/ul (0.83-4.51); Lymphocyte % 42.4 % (19-41); Mean Corp Hgb Conc 32.6 g/dL (32-36); Mean Corpuscular Hgb 29.3 pg (27.0-32.0); Mean Corpuscular Volume 89.9 fL (80-94); Mean Platelet Vol. 10.1 fl (6.2-12.0); Monocyte# 0.36 X10^3/uL; Monocyte% 5.3 % (0-10); NRBC Flagged by Analyzer 0 % (0-5); Neutrophil % 50.2 % (47-70); Platelet Count 275 K/mm3 (150-450); RBC Distribution Width CV 12.8 % (11.6-14.6); RBC Distribution Width SD 41.6 fl (35.1-43.9); Red Blood Count 4.67 M/mm3 (4.6-6.2); White Blood Count 6.8 K/mm3 (4.4-11.0)
[2024-04-20 19:00] LABS: ALB/GLOB Ratio 1.2 RATIO (0.9-2.4); AST(SGOT) 20 U/L (15-37); Alanine Aminotransfer ALT/SGPT 26 U/L (16-61); Albumin, Serum 3.7 g/dL (3.2-5.0); Alkaline Phosphatase 83 U/L (45-117); Anion Gap 7 (5-15); BUN 24 mg/dL (7-18); BUN/Creat Ratio 22.4 RATIO (10-20); Calcium,Total 8.7 mg/dL (8.5-10.1); Chloride 110 mmol/L (98-107); Cholesterol 146 mg/dL (200); Creatinine, Serum 1.07 mg/dL (0.70-1.30); EST Glomerular Filtration Rate 80 mL/min (>60); Est Glom Filt Rate - Afr Amer 97 mL/min (>60); Globulin 3.2 g/dL (2.2-4.2); Glucose 100 mg/dL (74-106); High Density Lipoprotein 43 mg/dL; Potassium 3.8 mmol/L (3.5-5.1); Protein, Total 6.9 g/dL (6.4-8.2); Sodium Level 142 mmol/L (136-145); Triglycerides 146 mg/dL; Very Low Density Lipoprotein 29 mg/dL (5-40)
== END | disposition home or self-care (01) ==
LOC: BFHLAB 16:15
PROVIDERS: PCP Family Medicine; Referring Provider Family Medicine; Visit Provider Family Medicine
DX: I63.019 Cerebral infarction due to thrombosis of unspecified vertebral artery (principal); R13.10 Dysphagia, unspecified
CPT/HCPCS: 36415; 80053; 80061; 85025

== ENCOUNTER → 2025-08-11 | Outpatient (CLI) | payer OTHER, SELFPAY ==
[2025-08-11 09:58] LABS: Hematocrit 43.7 % (40-54); Hemoglobin 15.0 g/dL (13.0-16.5); Immature Granulocytes Count 0.040 X10^3/uL (0.0-0.0); Mean Corp Hgb Conc 34.3 g/dL (32-36); Mean Corpuscular Volume 89.0 fL (80-94); Mean Platelet Vol. 9.5 fl (6.2-12.0); NRBC Flagged by Analyzer 0 % (0-5); Platelet Count 270 K/mm3 (150-450); RBC Distribution Width CV 12.0 % (11.6-14.6); RBC Distribution Width SD 38.9 fl (35.1-43.9); Red Blood Count 4.91 M/mm3 (4.6-6.2); White Blood Count 5.9 K/mm3 (4.4-11.0)
[2025-08-11 10:31] LABS: Cholesterol 272 mg/dL (<=200); Low Density Lipoprotein Calc. 200 mg/dL; Triglycerides 125 mg/dL; Very Low Density Lipoprotein 25 mg/dL (5-40); cholesterol:hdl ratio screen 5.84
[2025-08-11 10:32] LABS: AST(SGOT) 28 U/L (<=37); Alanine Aminotransfer ALT/SGPT 32 U/L (<=46); Albumin, Serum 4.2 g/dL (3.5-5.0); Alkaline Phosphatase 63 U/L (40-129); Anion Gap 11 (5-15); BUN 20 mg/dL (4-19); BUN/Creat Ratio 22.8 RATIO (10-20); Calcium,Total 8.9 mg/dL (7.6-11.0); Carbon Dioxide 24.6 mmol/L (21.0-32.0); Chloride 104 mmol/L (98-108); Globulin 2.6 g/dL (2.2-4.2); Glucose 100 mg/dL (70-99); Potassium 4.2 mmol/L (3.3-5.1)
== END | disposition home or self-care (01) ==
LOC: LAB 09:21
PROVIDERS: PCP Family Medicine; Referring Provider Family Medicine; Visit Provider Family Medicine
DX: Z00.00 Encounter for general adult medical examination without abnormal findings (principal); I63.019 Cerebral infarction due to thrombosis of unspecified vertebral artery; I10 Essential (primary) hypertension; R13.10 Dysphagia, unspecified
CPT/HCPCS: 36415; 80053; 80061; 85025

== ENCOUNTER → 2025-10-23 | Outpatient (CLI) | payer OTHER, SELFPAY ==
[2025-10-23 11:22] LABS: Cholesterol 254 mg/dL (<=200); Low Density Lipoprotein Calc. 194 mg/dL; Triglycerides 127 mg/dL; Very Low Density Lipoprotein 25 mg/dL (5-40); cholesterol:hdl ratio screen 6.90
== END | disposition home or self-care (01) ==
PROVIDERS: PCP Family Medicine; Referring Provider Family Medicine; Visit Provider Family Medicine
DX: E78.5 Hyperlipidemia, unspecified (principal)
CPT/HCPCS: 36415; 80061